=== PATIENT | female | born 1940 | race Caucasian/White ===

== ENCOUNTER 2020-08-28 14:20 | Outpatient (CLI) | payer MEDICARE, SELFPAY ==
--- NOTE | ~2020-08-28 | MM_ITS ---
EXAMINATION: MM screening luci BI w ce HISTORY: Screening mammogram TECHNIQUE: Craniocaudal and mediolateral oblique 3-D tomosynthesis images were obtained and synthetic 2-D images were generated. CAD analysis was submitted and interpreted. COMPARISON: 08/19/2019, 04/12/2018, 08/14/2016 bilateral digital screening mammogram examinations BREAST PARENCHYMAL COMPOSITION: There are scattered areas of fibroglandular density. FINDINGS: There is no evidence of suspicious mass, calcification, or architectural distortion to sugg est malignancy in either breast. There has been no suspicious interval change. IMPRESSION: 1. No mammographic evidence of malignancy. 2. Recommend routine screening mammography in one year. BI-RADS Category 1: Negative Reviewed, dictated and finalized at location B.
== END 2020-08-28 14:21 | disposition home or self-care (01) ==
LOC: ANHIMG 14:24
PROVIDERS: PCP Family Medicine; Visit Provider Family Medicine
DX: Z12.31 Encounter for screening mammogram for malignant neoplasm of breast (principal)
CPT/HCPCS: 77063; 77067

== ENCOUNTER 2023-02-04 06:49 | Day surgery (SDC) | payer MEDICARE, SELFPAY ==
[2023-01-30 12:10] VITALS: BMI 31.0
--- NOTE | 2023-02-04 07:25 | WPDHPUPDATE1 ---
History and Physical Update Update Date/Time: 02/04/23 07:25 History and Physical has been reviewed, including an updated exam of the patient. There are NO changes in the patient's condition. Risks, benefits, and alternatives have been discussed and questions answered. Patient agrees to proceed with procedure.
[2023-02-04 07:35] VITALS: BP 155/54; PULSE 71; RESP 16; TEMP 36; O2SAT 100
[2023-02-04] MEDS: TETRACAINE HCL 0.5% OPHTH SOLN 4 ML BTL 1 DROP AFFCTD EYE ×3 (07:48→07:58)
[2023-02-04] MEDS: OFLOXACIN 0.3% OPHTH SOLN 5 ML BTL 1 DROP AFFCTD EYE (07:48)
--- NOTE | 2023-02-04 08:15 | P.PNAN_ITS ---
Anes - Initial Pre Proc Eval Procedure: Operation Date: 02/04/23 08:10 Proposed Procedures p Cataract Extraction with Lens Implant-Right Eye - Wilver Guadalupe MD Date/Time: 02/04/23 08:15 Surgeon: Wilver Guadalupe MD Pre Op Diagnosis: Cataract Right Eye Patient Data Age: 82 Gender: F Height: 1.57 m Weight: 82.2 kg Last Vital Signs Temp 36.0 C L 02/04/23 07:35 Pulse 71 02/04/23 07:35 Resp 16 02/04/23 07:35 BP 155/54 H 02/04/23 07:35 Pulse Ox 100 02/04/23 07:35 O2 Del Method Room Air 02/04/23 07:35 Allergies Allergy/AdvReac Type Severity Reaction Status Date / Time codeine Allergy Unknown Hallucinati Verified 02/04/23 07:39 ng Home Medications Medication Instructions Recorded Confirmed Type atenolol 50 mg tablet 50 mg PO DAILY 01/30/23 02/04/23 History furosemide 20 mg tablet 20 mg PO DAILY 01/30/23 02/04/23 History omeprazole 20 mg capsule,delayed 20 mg PO DAILY 01/30/23 02/04/23 History release spironolactone 50 mg tablet 50 mg PO DAILY 01/30/23 02/04/23 History Patient hx anesthesia problems: none Family hx anesthesia problems: none Results Review: All pre-operative results and documents have been reviewed as part of the pre- operative evaluation. [facility] Past Medical History Medical History (Updated 02/04/23 @ 08:16 by Devin Andino MD) Obesity Family History Family History (Updated 03/06/17 @ 23:56 by DOCTOR UNKNOWN) Father Acute myocardial infarction, Onset Age: 82 Patient's father is Mother Cerebrovascular accident, Onset Age: 93 Social History Social History Smoking status: Never smoker Second hand tobacco smoke exposure: No Alcohol intake: never Substance use: never Substance use type: does not use Living arrangements: alone Spiritual care concerns: No Anes - Eval Final PreProcedure Day of Procedure 02/04/23 08:15 Patient weight: obese Heart: regular rate and rhythm Lungs: clear to auscultation and normal air movement Airway: Mallampati scale class II Neurological: alert and oriented Last oral intake: >/= 8 hours ASA classification: II Emergent: no Anesthetic plan: proceed Anesthesia type and monitoring: general GIVS Results Review: All pre-operative results and documents have been reviewed as part of the pre- operative evaluation. Informed Consent: The patient's anesthetic plan and its attendant risks and benefits were discussed with the patient/family/POA. Questions were solicited and answers provided to the satisfaction of the patient/family/POA.
[2023-02-04] MEDS: LIDOCAINE HCL 2% JELLY 5 ML TUBE 1 APPLIC AFFCTD EYE (08:21)
[2023-02-04] MEDS: LIDOCAINE HCL 1% PF INJ 5 ML VIAL 1 ML INTRAOCULA (08:32)
[2023-02-04] MEDS: NEOMYCIN/POLYMYXIN/DEXAMETH OP OINT 3.5 GM TUBE 1 APPLIC AFFCTD EYE (08:39)
[2023-02-04] MEDS: HOME MEDICATION 1 EACH AFFCTD EYE (08:43)
[2023-02-04 08:45] VITALS: BP 142/97; PULSE 66; RESP 15; O2SAT 100
[2023-02-04] MEDS: acetaZOLAMIDE TAB 250 MG TABLET PO (08:50)
--- NOTE | 2023-02-04 11:36 | W.PM.PROC2 ---
Procedure Note - Detailed Date of Procedure 02/04/23 Pre-op Diagnosis Cataract Right Eye Post-op Diagnosis Same Procedure Performed Cataract Extraction (by Phacoemulsification) and lntraocular Lens Implant Surgeon Wilver Guadalupe MD Anesthesia MAC Description of Procedure The eye was anesthetized with topical 0.75% bupivacaine. After intravenous sedation and placement of monitors, the patient was prepped and draped in the usual sterile manner. A lid speculum was placed. A paracentesis was made, and preservative free 1% lidocaine was instilled in the anterior chamber. The anterior chamber was then filled with Viscoat viscoelastic. A luke keratome was used to create the wound. Continuous tear anterior capsulotomy was performed. The lens was hydro dissected before being removed with phacoemulsification. The remaining lenticular cortex was removed with aspiration. The capsular bag was polished and filled with viscoelastic material. An intraocular lens was chosen, inspected, irrigated and placed within the capsular bag where it was seen to be centered and stable. The viscoelastic material was aspirated. The wound was closed and found to be watertight. Ciloxan drops were placed in the eye. The speculum was removed. A Juan shield was applied. The patient tolerated the procedure well and left the operating room in satisfactory condition. Implants See chart Complications None Condition Stable Disposition Same day
--- NOTE | 2023-02-04 11:45 | WPDANESPN ---
Anes - Prog Note Post-Op Date/Time: 02/04/23 11:45 Cardiovascular status: normal Respiratory status: normal Airway patency: baseline Mental status: baseline Post-Op hydration status: normal Vital Signs: Last Vital Signs Temp 36.0 C L 02/04/23 07:35 Pulse 66 02/04/23 08:45 Resp 15 02/04/23 08:45 BP 142/97 H 02/04/23 08:45 Pulse Ox 100 02/04/23 08:45 O2 Del Method Room Air 02/04/23 08:45 Pain Score (VAS): 0 Post-procedural complaints: none Patient Feedback: Patient satisfied with anesthetic care.
== END 2023-02-04 09:15 | disposition home or self-care (01) ==
PROVIDERS: PCP Internal Medicine; Visit Provider Student in an Organized Health Care Education/Training Program
PROC: (CPT 66983; principal; 2023-02-04 08:10)
DX: H25.11 Age-related nuclear cataract, right eye (principal)
CPT/HCPCS: 66984

== ENCOUNTER 2024-03-23 08:29 | Outpatient (CLI) | payer MEDICARE, SELFPAY ==
--- NOTE | ~2024-03-23 | CT_ITS ---
CT of the Abdomen and Pelvis: Indication: Abdominal pain Technique: 2.5 mm axial scans were obtained through the abdomen and pelvis following intravenous adm inistration of 100 cc of Omnipaque 350. Dose reduction technique was used on this scan by utilizing a utomated exposure control and iterative reconstruction technique. The dose-length product (DLP) was 6 86.91 mGy-cm. Findings: Scans through the lung bases are unremarkable. Probable small hiatal hernia. Nodular contour of the liver is present, with small hepatic size. Calcified gallstones are present. T he spleen, pancreas, adrenals and kidneys are within normal limits. No evidence of aortic aneurysm. No lymphadenopathy. No bowel obstruction or bowel wall thickening. There is no evidence to suggest acute appendicitis. Images through the pelvis were performed. Urinary bladder unremarkable. No adnexal mass seen. No asci melba. Impression: Cirrhosis of the liver. Cholelithiasis. Reviewed, dictated and finalized at location . Impression: Cirrhosis of the liver. Cholelithiasis.
[2024-03-23 09:06] LABS: Estimated Glomerular Filt Rate 33
== END 2024-03-23 08:30 | disposition home or self-care (01) ==
PROVIDERS: PCP Internal Medicine; Visit Provider Internal Medicine
DX: K80.20 Calculus of gallbladder without cholecystitis without obstruction (principal); K74.60 Unspecified cirrhosis of liver
CPT/HCPCS: 74177; Q9967

== ENCOUNTER 2025-03-14 12:49 | Outpatient (CLI) | payer MEDICARE, SELFPAY ==
--- NOTE | ~2025-03-14 | MR_ITS ---
MRI of the abdomen: Clinical indication: Cirrhosis COMPARISON: CT scan dated 03/23/2024 Technique: Coronal SSFSE ARC, WATER:coronal LAVA-FLEX, Coronal 2D FIESTA FatSat, Axial SSFSE BH ARC, Axial 3D DualEcho BH, Axial SSFSE-IR, Axial DWI b=500, Axial 2D FIESTA FatSat, pre and dynamic postco ntrast Axial LAVA ARC, postcontrast Coronal In and Opposed phase LAVA FLEX . Following intravenous ad ministration of 17 cc MultiHance gadolinium, T1-weighted fat-sat imaging was performed in the axial a nd coronal planes. Findings: Multiple small gallstones are present. The common bile duct is unremarkable. No filling def ects are seen within the CBD. No evidence of intrahepatic biliary ductal dilatation. The pancreatic d uct is normal in size. Liver demonstrate diffusely nodular contour with somewhat small size, compatible cirrhosis. No focal mass evident. Spleen, pancreas, adrenals, kidneys appear normal. The aorta and the paraaortic regions appear normal . No suspicious postcontrast enhancement. Impression: Cirrhosis of the liver. No focal hepatic mass. Cholelithiasis. Reviewed, dictated and finalized at location . Impression: Cirrhosis of the liver. No focal hepatic mass. Cholelithiasis.
--- OUTSIDE RECORDS SUMMARY | 2025-03-14 13:43 | XMS_ITS | Data Portability ---
Author Organization [facility], Main Office Address [address] [place] [address] Care Team Providers Care Motor Equipment Captain Name Role Phone HIGINIO OCAMPO Primary Care Provider HIGINIO OCAMPO Referring Provider Assessment Encounter Date Assessment Date Assessment LastModified by Organization Details LastModified Time 06/17/2023 06/17/2023 Continue current therapy she will follow-up in 6 month Not available 06/18/2023 08:36:40 12/16/2023 12/16/2023 GERD conservative measures as well as famotidine Supplement vitamin-D qmkl-aon-[id number] r Hypertension continue current therapy Blood pressure check in a week she has been taking Benadryl sinus which may be bring her blood pressure up Regular clinic visit 4-6 [email or web address] Not available 12/26/2023 15:51:17 Plan of Treatment Reminders Order Date Submit Date Provider Last Modified By Organization Details Last Modified Time Details Appointments None recorded. Lab CMP, serum or plasma 2023 024 [email or web address] [facility] (Lab), [address] [place], [address], 4 09:10:45 lipid panel, serum [email or web address] (Lab), [address] [place], [address], 4 09:10:45 CMP, serum or plasma 2022 023 MICHAEL [facility] (Lab), [address] [place], [address], 4 09:41:14 lipid panel, serum 2022 023 [facility] [address] [facility] [place], [address], 4 09:41:[address] referral 2023 024 [email or web address] [address] [facility], [address] [place], [address], 4 12:30:09 Procedures None recorded. Surgeries None recorded. Imaging None recorded. Medication Orders None recorded. Patient TargetsNo targets recorded. Patient InstructionsNo instructions recorded. 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 [id number] [facility] [address] [facility], [place], [address], 01/28/2023 00:53:59 Result Notes None recorded. Problems Name Problem SNOMED Code Status Onset Date Resolution Date Notes Provider Name and Address Organization Details Recorded Time Gastroesophag eal reflux disease 930513917 Active Not Available [facility] 3 00:46:04 Vitamin D deficiency 83315948 Active 2020 Not Available [facility] 3 00:46:04 Hypertensive disorder 93380329 Active 2016 Not Available [facility] 3 00:46:04 Neuropathy 523545893 Active Not Available [facility] 3 00:46:04 Skin lesion 26653981 Active 2023 NEHEMIAS Thompson, [place] - [facility] 4 15:24:43 Problem Notes None recorded. Procedures Surgical History Date Name Laterality Status Provider Name and Address Organization Details Recorded Time Knee Surgery completed Not Available [facility] 01/28/2023 00:41:25 Cataract Surgery completed NEHEMIAS Gomez [place] - [facility] 06/17/2023 14:35:09 Imaging Results Imaging Date Name Status LastModified by Organiz ation Details LastModified Time 10/09/2022 XR, knee completed [id number] [facility] [address], [place], [address], 01/28/2023 00:53:59 Procedure Notes None recorded. Medical Equipment None Reported. Allergies Allergen ID Allergen Name Allergen Category Reaction Reaction Severity Criticality Documentation Date Start Date Code Code System Note Provider Name and Address Organization Details Recorded Time 485 codeine medicatio n vomiting Not available Not available 01/28/2023 2670 RxNorm Not Available [facility] 00:53:14 Medications Name Sig Start Date Stop Date Status Note LastModified by Organization Details LastModified Time Miralax 17 gram oral powder packet Take 1 packet every day by oral route. 08/29 completed Not Available Not Available Not Available hydrocodon e 5 mg-acetami nophen 325 mg tablet 06/11 completed Not Available Not Available Not Available chlorthali done 50 mg tablet 09/28 completed Not Available Not Available Not Available triamcinol one acetonide 0.1 % topical cream apply to affected area(s) twice daily as needed1 01/26 completed Not Available Not Available Not Available amoxicilli n 500 mg tablet Take 4 tablet 1 hour before dental procedure active Not Available Not Available No t Available ondansetro n 8 mg disintegra ting tablet 06/11 completed Not Available Not Available Not Available meloxicam 7.5 mg tablet Take 1 tablet every day by oral route. active Not Available Not Available No t Available famotidine 20 mg tablet Take 1 tablet every day by oral route. active Not Available Not Available No t Available Kenalog 10 mg/mL suspension for injection In office injection administe red by the provider 07/16 completed NDC: 0003-0 494-20 Not Available Not Available Not Available cephalexin 500 mg capsule 08/29 completed Not Available Not Available Not Available sertraline 25 mg tablet TAKE ONE TABLET DAILY 12/01 completed Not Available Not Available Not Available omeprazole 20 mg capsule,de layed release TAKE 1 CAPSULE BY MOUTH DAILY active Not Available Not Available No t Available cephalexin 500 mg tablet Take 1 tablet every 6 hours by oral route. 08/29 completed Not Available Not Available Not Available diclofenac sodium 50 mg tablet,del ayed release Take 1 tablet twice a day by oral route for 10 days. 03/22 completed Not Available Not Available Not Available furosemide 20 mg tablet TAKE 1 TABLET BY MOUTH DAILY active Not Available Not Available No t Available Aspir-81 mg tablet,del ayed release Take 1 tablet every day by oral route. 07/19 completed Not Available Not Available Not Available Vitamin D2 1,250 mcg (50,000 unit) capsule Take 1 capsule every week by oral route. active Not Available Not Available No t Available fluticason e propionate 50 mcg/actuat ion nasal spray,susp ension Inhale 2 sprays every day by intranasa l route as needed. 09/28 completed Not Available Not Available Not Available atenolol 50 mg tablet TAKE 1 TABLET BY MOUTH DAILY active Not Available Not Available No t Available spironolac tone 50 mg tablet TAKE 1 TABLET BY MOUTH DAILY active Not Available Not Available No t Available diazepam 5 mg tablet take 1/2(half) tablet PO BID 07/19 completed pt never took Not Available Not Available Not Available amoxicilli n 875 mg-potassi um clavulanat e 125 mg tablet Take 1 tablet twice a day by oral route. 09/28 completed Not Available Not Available Not Available Tylenol Extra Strength 500 mg tablet Take 2 tablets every 6 hours by oral route. 10/09 completed Not Available Not Available Not Available oxycodone 5 mg tablet take 1 tablet PO Q 4hr PRN 11/14 completed Not Available Not Available Not Available Senokot-S 8.6 mg-50 mg tablet Take 2 tablets every day by oral route. 08/29 completed Not Available Not Available Not Available lidocaine (PF) 10 mg/mL (1 %) injection solution In office injection administe red by the provider 07/16 completed [facility]: 0409-4 276-17 Not Available Not Available Not Available GaviLyte-N 420 gram oral solution 07/19 completed Not Available Not Available Not Available Eliquis 2.5 mg tablet Take 1 tablet twice a day by oral route. 11/14 completed Not Available Not Available Not Available Fluzone High-Dose 2014- (PF) 180 mcg/0.5 mL intramuscu lar syringe 01/21 completed Not Available Not Available Not Available Fluzone High-Dose 6746-3586 (PF) 180 mcg/0.5 mL intramuscu lar syringe 09/28 completed Not Available Not Available Not Available Fluzone High-Dose 1354-2627 (PF) 180 mcg/0.5 mL intramuscu lar syringe 01/26 completed Not Available Not Available Not Available Fluad 65yr up(PF)45 mcg(15 mcgx3)/0.5 mL intramuscu lar syringe 01/16 completed Not Available Not Available Not Available Vitals Date Recorded Body height Body mass index (BMI) Body weight Body temperature Heart rate Systolic blood pressure Diastolic blood pressure Provider Name and Address Organization Details Last Updated DateTime 3 152.4 cm 35 kg/m2 42639.0 3 g 97.5 [degF] 66 /min 132 mm[Hg] 84 mm[Hg] NEHEMIAS Gomez [place] - [facility] 3 14:38:14 Date Recorded Body mass index (BMI) Body height Heart rate Body temperature Body weight Systolic blood pressure Diastolic blood pressure Provider Name and Address Organization Details Last Updated DateTime 2 34.6 kg/m2 152.4 cm 60 /min 97.7 [degF] 94852.8 5 g 130 mm[Hg] 80 mm[Hg] Not Available [facility] 3 00:42:15 Date Recorded Body mass index (BMI) Body height Body weight Provider Name and Address Organization Details Last Updated DateTime 10/09/2022 34.8 kg/m2 152.4 cm 77212.44 g Not Available [facility] 01/28/2023 00:42:22 Date Recorded Body mass index (BMI) Body height Heart rate Body temperature Body weight Systolic blood pressure Diastolic blood pressure Provider Name and Address Organization Details Last Updated DateTime 3 34.4 kg/m2 152.4 cm 67 /min 97 [degF] 69071.2 6 g 122 mm[Hg] 70 mm[Hg] Not Available [facility] 3 00:42:15 Date Recorded Body height Body temperature Heart rate Respiratory rate Oxygen saturation Oxygen saturation in Arterial blood by Pulse oximetry Pain severity - 0-10 verbal numeric rating [Score] - Reported Systolic blood pressure Diastolic blood pressure Provider Name and Address Organization Details Last Updated DateTime 4 152.4 cm 97.2 [degF] 68 /min 20 /min 99 % 99 % 0 170 mm[Hg] 70 mm[Hg] Cecilia Vences RN [place] - [facility] [employer] 4 14:35:19 Social History Question Answer Notes LastModified by Organizat ion Details LastModified Time Tobacco Smoking Status Never Smoker Not Available [facility] 01/28/2023 00:40:24 Do You Have An Advance Directive? Yes MIGRATION.12726 96470 Information not available 01/28/2023 What Is Your Level Of Alcohol Consumption? None MIGRATION.69225 29481 Information not available 01/28/2023 Do You Wear A Helmet When Biking? Yes MIGRATION.85939 99942 Information not available 01/28/2023 Are You Blind Or Do You Have Difficulty Seeing? No MIGRATION.80832 35426 Information not available 01/28/2023 What Is Your Level Of Caffeine Consumption? Occasional MIGRATION.90411 28949 Information not available 01/28/2023 What Is Your Code Status? DNR MIGRATION.45856 30219 Information not available 01/28/2023 In The 14 Days Before Symptom Onset, Have You Had Close Contact With A Laboratory-confir med COVID-19 While That Case Was Ill? No MIGRATION.99006 64892 Information not available 01/28/2023 In The 14 Days Before Symptom Onset, Have You Had Close Contact With A Person Who Is Under Investigation For COVID-19 While That Person Was Ill? No MIGRATION.21223 37049 Information not available 01/28/2023 Are You Deaf Or Do You Have Serious Difficulty Hearing? No MIGRATION.75796 21474 Information not available 01/28/2023 What Type Of Diet Are You Following? REGULAR MIGRATION.76018 32022 Information not available 01/28/2023 What Is The Highest Grade Or Level Of School You Have Completed Or The Highest Degree You Have Received? [id number] MIGRATION.78824 72602 Information not available 01/28/2023 Have There Been Any Changes To Your Family Or Social Situation? No MIGRATION.99489 21094 Information not available 01/28/2023 What Is The Fluoride Status Of Your Home? Unknown MIGRATION.90819 20416 Information not available 01/28/2023 Do You Use Insect Repellent Routinely? Yes MIGRATION.82546 45617 Information not available 01/28/2023 Where Do You Live? [place] MIGRATION.33249 66966 Information not available 01/28/2023 Do You Have A Medical Power Of Gearman? Yes MIGRATION.37257 23789 Information not available 01/28/2023 What Was The Date Of Your Most Recent Tobacco Screening? 06/17/2023 [email or web address] Information not available 06/17/2023 Do You Have Any Pets? No MIGRATION.65755 32025 Information not available 01/28/2023 What Is Your Relationship Status? MIGRATION.45815 40150 Information not available 01/28/2023 Do You Use Your Seat Belt Or Car Seat Routinely? Yes MIGRATION.87559 48092 Information not available 01/28/2023 Do You Have Smoke And Carbon Monoxide Detectors In Your Home? Yes MIGRATION.74911 13014 Information not available 01/28/2023 Are You Passively Exposed To Smoke? No MIGRATION.58588 87674 Information not available 01/28/2023 Are There Any Smokers In Your House? No MIGRATION.95693 05750 Information not available 01/28/2023 Do You Participate In Social Media? No MIGRATION.26003 60762 Information not available 01/28/2023 Do You Feel Stressed (tense, Restless, Nervous, Or Anxious, Or Unable To Sleep At Night)? [id number] MIGRATION.27448 39097 Information not available 01/28/2023 Do You Use Any Illicit Or Recreational Drugs? No MIGRATION.08657 01514 Information not available 01/28/2023 Do You Use Sunscreen Routinely? No MIGRATION.44142 23733 Information not available 01/28/2023 Has Tobacco Cessation Counseling Been Provided? No MIGRATION.87006 57159 Information not available 01/28/2023 Have You Recently Traveled Abroad? No MIGRATION.45744 12760 Information not available 01/28/2023 Are You Currently In School? No MIGRATION.94458 74435 Information not available 01/28/2023 Do You Have Any Dietary Restrictions? No MIGRATION.67128 66558 Information not available 01/28/2023 Sex: Unknown Functional Status Question Answer Note LastModified by Organizat ion Details LastModified Time Do you have difficulty walking or climbing stairs? No MIGRATION.[id number] 26 Information not available 01/28/2023 Are you able to walk? YESWOREST MIGRATION.97557564 26 Information not available 01/28/2023 Do you have difficulty doing errands alone? No MIGRATION.55489479 26 Information not available 01/28/2023 Are you able to care for yourself? Yes MIGRATION.92650078 26 Information not available 01/28/2023 Do you have difficulty dressing or bathing? No MIGRATION.48766191 26 Information not available 01/28/2023 What is your exercise level? Occasional MIGRATION.89948500 26 Information not available 01/28/2023 Mental Status Question Answer Note LastModified by Organizat ion Details LastModified Time Do you have difficulty concentrating, remembering or making decisions? No MIGRATION.770145792 6 Information not available 01/28/2023 Family History Relationship Description Onset Age of this Age Resolved Age Notes LastModified by Organization Details LastModified Time Mother Hypertensive disorder MIGRATION.814 [id number] Not available 01/28/2023 00:41:27 Brother Hypertensive disorder MIGRATION.236 [id number] Not available 01/28/2023 00:41:27 Unspecified Relation Blood coagulation disorder MIGRATION.295 [id number] Not available 01/28/2023 00:41:27 Medical History Condition Response BLINDNESS N KIDNEY STONES N MRSA N CARPAL TUNNEL SYNDROME N LUNG DISEASE/DISORDER N HISTORY OF DRUG ABUSE N RADIATION / CHEMOTHERAPY N COPD N SPORTS INJURY N ANKLE PAIN N BLOOD DISEASES N SCHIZOPHRENIA N SHINGLES N SHOULDER PAIN N BOWEL PROBLEMS N DEPRESSION (INCLUDING POST ) N STROKE/TIA N ULCERS N KNEE PAIN N BENIGN PROSTATIC HYPERPLASIA N OBESITY N GERD/NAUSEA N ANEURYSM N URINARY/BLADDER/KIDNEY PROBLEMS N CORONARY ARTERY DISEASE (CAD) N ADDICTION CONCERNS N USE OF BLOOD THINNERS N SKIN PROBLEMS N EMPHYSEMA N MUSCLE,JOINT OR BONE PROBLEMS N DVT N STOMACH ULCERS N BLOOD CLOTS N USE OF NSAIDS N CONCUSSION OR SPINAL TRAUMA N NEUROPATHY N AIDS/HIV N FRACTURES N HYPERTENSION Y ELBOW PAIN N TOURETTE'S N Metal allergy N ANXIETY DISORDER N BLOOD TRANSFUSION N ANEMIA/BLOOD DISORDER N BIPOLAR DISORDER N BRONCHITIS N OSTEOARTHRITIS N TUBERCULOSIS N FOOT PROBLEM N HEART VALVE DISORDERS N ALLERGIES/HAYFEVER N SOFT TISSUE INJURY N INFECTIOUS DISEASE N HEART ARRHYTHMIA N INSOMNIA N HIGH CHOLESTEROL / HYPERLIPIDEMIA N RHEUMATOID ARTHRITIS N EDEMA N CHRONIC PAIN SYNDROME N CAROTID BLOCKAGE N BACK / NECK PROBLEMS N HAVE YOU BEEN HOSPITALIZED OR SEEN IN [facility] IN THE PAST YEAR ? N BURSITIS N HERNIATED DISC N DIALYSIS N FIBROMYALGIA N OSTEOPOROSIS N ARTHRITIS Y NO SIGNIFICANT PAST MEDICAL HISTORY N PERIPHERAL NEUROPATHY N DIABETES, TYPE N HEARTBURN / REFLUX N HEPATITIS / LIVER DISEASE N GOUT N ALZHEIMER'S DISEASE N SLEEP DISORDER N HERPES N HEADACHES/MIGRAINES N SEIZURES/EPILEPSY N VASCULAR DISEASE N Blood Disorder N HIP PAIN N DIZZINESS N HEAD TRAUMA OR INJURY N HEART DISEASE/HEART PROBLEMS N MULTIPLE SCLEROSIS N CANCER: SPECIFY N CARDIAC ARRHYTHMIA N ANESTHESIA COMPLICATIONS N ATRIAL FIBRILLATION N AUTOIMMUNE DISEASE N Gynecological HistoryNo gynecological history recorded. Obstetrics History GPAL:G 2 P 0 0 0 2 Type Value Living 2 Total 2 Immunizations Vaccine Type Date Status Note Provider [facility] e and Address Organization Details Recorded Time COVID-19, mRNA, LNP-S, bivalent, PF, 50 mcg/0.5 mL or 25mcg/0.25 mL dose 2 completed MELANIE Eddy, [place] [facility] 12/16/2023 14:28:30 COVID-19, mRNA, LNP-S, bivalent, PF, 50 mcg/0.5 mL or 25mcg/0.25 mL dose 2 completed MELANIE Edd[place], [place] [facility] 12/16/2023 14:28:30 influenza, unspecified formulation 8 completed Not Available [facility] 01/28/2023 00:53:04 Influenza, high-dose, trivalent, PF 7 completed MELANIE Edd[place], [place] [facility] 12/16/2023 14:28:30 COVID-19, mRNA, LNP-S, PF, 100 mcg/0.5mL dose or 50 mcg/0.25mL dose 1 completed MELANIE Eddy, [place] [facility] 12/16/2023 14:28:30 COVID-19, mRNA, LNP-S, PF, 100 mcg/0.5mL dose or 50 mcg/0.25mL dose 1 completed Cecilia Vences RN [facility], [place] - [facility] 12/16/2023 14:28:30 Influenza, high-dose, quadrivalent, PF 1 completed Not Available [facility] 01/28/2023 00:53:04 Influenza, split virus, quadrivalent, PF 6 completed Not Available [facility] 01/28/2023 00:53:05 Past Encounters Encounter ID Performer Location Encounter Start Date Encounter Closed Date Diagnosis/Indication Diagnosis SNOMED-CT Code Diagnosis ICD10 Code Diagnosis Note [id number] [facility] [address] [address] 02/21/2021 00:00:00 02/21/2021 09:43:49 [id number] [facility] [address] [address] 05/16/2021 00:00:00 05/24/2021 13:13:51 [id number] [facility] [address] [address] 06/27/2021 00:00:00 06/27/2021 10:00:07 [id number] [facility] [address] [address] 07/16/2021 00:00:00 07/17/2021 08:53:25 [id number] [facility] [address] [address] 08/08/2021 00:00:00 08/08/2021 12:16:00 [id number] [facility] [address] [address] 08/29/2021 00:00:00 08/29/2021 12:23:00 [id number] [facility] [address] [address] 09/04/2021 00:00:00 09/04/2021 18:29:49 [id number] [facility] [address] [address] 09/12/2021 00:00:00 09/12/2021 11:44:41 [id number] [facility] [address] [address] 10/31/2021 00:00:00 10/31/2021 12:39:58 [id number] [facility] [address] [address] 11/14/2021 00:00:00 11/14/2021 10:56:25 [id number] [facility] [address] [address] 11/28/2021 00:00:00 11/30/2021 21:36:17 [id number] [facility] Internal [facility] [address] [place] [address] [address] 12/13/2021 00:00:00 12/22/2021 20:59:41 [id number] [facility] [address] [place] [address] [address] 06/11/2022 00:00:00 06/30/2022 20:53:21 [id number] [facility] [address] [address] 10/09/2022 00:00:00 10/09/2022 12:01:36 [id number] [facility] [address] [address] 12/10/2022 00:00:00 12/13/2022 21:13:20 [id number] Higinio Ocampo MD [facility] [address] [address] 06/17/2023 14:23:06 06/17/2023 14:51:32 Hypertensive disorder 10230858 I10 Gastroesop hageal reflux disease 453366496 K21.9 Vitamin D deficiency 347 58178 E55.9 [id number] Higinio Ocampo MD [facility] [address] [place] [address] 12/16/2023 14:15:17 12/16/2023 15:26:26 Hypertensive disorder 85009779 I10 Skin lesion 09963815 L98 .9 Gastroesop hageal reflux disease 189666174 K21.9 Health Concerns Section Related Observation LastModified by Organization Detai ls LastModified Time None Recorded Concern Status LastModified by Organization Details LastModified Time None Recorded Advance Directives Directive Y: Payers Encounter Date Sequence Insurance Name Policy Number Policy Christensen Covered Member ID Christensen Member ID Guarantor Name 06/17/2023 1 [facility] (MEDICARE REPLACEMENT/A DVANTAGE - HMO) [id number] Janine Kahn [id number] Janine Kahn 12/16/2023 1 [facility] (MEDICARE REPLACEMENT/A DVANTAGE - HMO) [id number] Janine Kahn [id number] Janine Kahn Notes Date Note Type Note Provider Name and Address Organization Details Recorded Time 06/17/2023 text/html GERD no nausea vomiting are prepared hypertension headache or dizziness. Osteoarthritis seems to be doing okay. History of low vitamin-D asymptomatic Higinio Ocampo MD [address], [facility] [address], [place], [address], [employer] 06/18/2023 08:37:00 12/16/2023 text/html Hypertension no headache no dizzinessDoes have a hyperpigmented skin lesionGERD no nausea no vomiting Higinio Ocampo MD [address], [facility] [address], [place], [address], [employer] 12/26/2023 15:51:33 OBGyn Episode No OBEpisode recorded.
--- OUTSIDE RECORDS SUMMARY | 2025-03-14 13:43 | XMS_ITS | Data Portability ---
Author Organization [facility] Address [address] [place] [address] Care Team Providers Care Cementer Hand Name Role Phone TREE OCAMPO Primary Care Provider Assessment Encounter Date Assessment Date Assessment LastModified by Organization Details LastModified Time 06/08/2024 06/08/2024 we will continue current therapy for GERD Pepcid 20 mg b.i.d. for couple of weeks then she will go to once a day. She has a nodular liver on CT scan also some gallstones I have recommended she see a liver specialist she has refused. She does not have anything to suggest biliary colic at this time but that was reviewed see month. We will get CBC CMP also magnesium level also will request records from her previous clinic. She will double the Lasix for 3 days and then go back to her regular dose again she was told to weigh herself daily and avoid salt [email or web address] Not available 07/03/2024 15:10:20 07/13/2024 07/13/2024 she will conside r seeing the liver specialists. I have encouraged her to do so follow up with me in 3-4 months if she is not called for referral to hepatology by then we may need to get MRI of liver [email or web address] Not available 07/13/2024 22:23:47 10/14/2024 10/14/2024 blood pressure controlled continue current therapy abnormal liver imaging suspect she may have some cirrhosis but she does not want any further testing nor referral to liver specialist. GERD she can use the omeprazole for breakthrough still use famotidine as well she will follow up in 4 months blood work ordered [email or web address] Not available 10/14/2024 23:14:31 11/04/2024 11/04/2024 Keflex continue MALIKA Also healthy lifestyle care instructions and keep regular appointment [email or web address] Not available 11/05/2024 14:31:33 02/17/2025 02/17/2025 on physical exam really paucity if any stigmata of chronic liver disease we will MRI her liver with and without contrast to further delineate anatomy as CT scan showed nodular liver healthy lifestyle care instructions continue with her atenolol famotidine and spironolactone she will follow up with me in 4 months again I have offered her to see hepatology she says she will wait and see what the MRI shows obtain CBC CMP and lipid [email or web address] Not available 02/18/2025 15:11:22 Plan of Treatment Reminders Order Date Submit Date Provider Last Modified By Organization Details Last Modified Time Details Appointments ANY 15 2024 01:00P Thu Ocampo MD Not available Not available Not available Lab CBC w/ auto diff 2023 [facility], [address], [address], [place], [address], 10/17/2024 15:26:40 CMP, serum or plasma 2023 024 [facility], [address], [address], [place], [address], 10/17/2024 15:26:38 lipid panel, serum 2023 024 [facility], [address], [place], [address], 10/17/2024 15:26:36 magnesium , serum or plasma 2023 024 [facility], [address], [address], [place], [address], 10/17/2024 15:26:37 CMP, serum or plasma 2023 024 [facility], [address], [address], [place], [address], 06/18/2024 03:08:19 manganese , serum or plasma 2023 024 [facility], [address], [place], [address], 06/18/2024 03:08:20 CBC w/ auto diff 2023 024 [facility], [address], [place], [address], 06/18/2024 03:08:20 Referral None recorded. Procedures None recorded. Surgeries None recorded. Imaging MRI, liver, w/wo contrast 2024 025 [email or web address] [facility] ([facility]), [address], [place], [address], 02/17/2025 13:26:11 Medication Orders cephalexi n 500 mg capsule 2023 025 [id number], [address], [place], [place], [id number], 02/17/2025 12:16:26 famotidin e 20 mg tablet 2023 024 [email or web address] [facility], [address] [place] [address], [address], [place], [place], [id number], 10/14/2024 13:08:36 famotidin e 20 mg tablet 2023 024 [email or web address] [facility], [address] [place] [address], [address], [place], [place], [id number], 06/16/2024 09:43:09 Patient TargetsNo targets recorded. Patient Instructions Encounter Date Encounter Id Patient Instructions Last Modified By Organization Details Last Modified Time 06/08/2024 [id number] A healthy lifestyle: care instructions Not available 06/08/2024 17:47:19 11/04/2024 [id number] A healthy lifestyle: care instructions [email or web address] Not available 11/04/2024 13:32:29 02/17/2025 [id number] A healthy lifestyle: care instructions [email or web address] Not available 02/17/2025 13:26:11 Reason for Referral None Reported. Results Created Date Observation Date Name Description Value Unit Range Abnormal Flag Note LastModifiedBy Organization Detail LastModifiedTime 06/11/20 24 06/18/2024 COMPR EHENS JESSICA METAB OLIC PANEL glucose 117 mg/dL 65-99 high Fasti ng refer ence inter cassie For someo ne witho ut known diabe melba, a gluco se value betwe en 100 and 125 mg/dL is consi stent with predi abete s and shoul d be confi rmed with a follo w-up test. Not Available [address], [address], 06/18/2024 03:08:19 06/11/20 24 06/18/2024 COMPR EHENS JESSICA METAB OLIC PANEL urea nitrogen (BUN) 12 mg/dL 7-25 normal Not Available [address], [address], 06/18/2024 03:08:19 06/11/20 24 06/18/2024 COMPR EHENS JESSICA METAB OLIC PANEL creatinine 1.44 mg/dL 0.60-0 .95 high Not Available [address], [address], 06/18/2024 03:08:19 06/11/20 24 06/18/2024 COMPR EHENS JESSICA METAB OLIC PANEL eGFR 37 mL/mi n/1.7 3m2 > or = 60 low Not Available [address], [address], 06/18/2024 03:08:19 06/11/20 24 06/18/2024 COMPR EHENS JESSICA METAB OLIC PANEL BUN/creatini ne ratio 8 (calc ) 6-22 normal Not Available [facility] [place] [address], [address], 06/18/2024 03:08:19 07/13/20 24 06/18/2024 COMPR EHENS JESSICA METAB OLIC PANEL sodium 137 mmol/ L 135-14 6 normal Not Available [address], [address], 06/18/2024 03:08:19 06/11/20 24 06/18/2024 COMPR EHENS JESSICA METAB OLIC PANEL potassium 4.3 mmol/ L 3.5-5. 3 normal Not Available [address], [address], 06/18/2024 03:08:19 06/11/20 24 06/18/2024 COMPR EHENS JESSICA METAB OLIC PANEL chloride 101 mmol/ L 98-110 normal Not Available [address], [address], 06/18/2024 03:08:19 06/11/20 24 06/18/2024 COMPR EHENS JESSICA METAB OLIC PANEL carbon dioxide 29 mmol/ L 20-32 normal Not Available [address], [address], 06/18/2024 03:08:19 06/11/20 24 06/18/2024 COMPR EHENS JESSICA METAB OLIC PANEL calcium 9.4 mg/dL 8.6-10 .4 normal Not Available [address], [address], 06/18/2024 03:08:19 06/11/20 24 06/18/2024 COMPR EHENS JESSICA METAB OLIC PANEL protein, total 6.4 g/dL 6.1-8. 1 normal Not Available [address], [address], 06/18/2024 03:08:19 06/11/20 24 06/18/2024 COMPR EHENS JESSICA METAB OLIC PANEL albumin 3.1 g/dL 3.6-5. 1 low Not Available [address] [place], [address], 06/18/2024 03:08:19 06/11/20 24 06/18/2024 COMPR EHENS JESSICA METAB OLIC PANEL globulin 3.3 g/dL_ (calc ) 1.9-3. 7 normal Not Available [address], [address], 06/18/2024 03:08:19 06/11/20 24 06/18/2024 COMPR EHENS JESSICA METAB OLIC PANEL albumin/glob ulin ratio 0.9 (calc ) 1.0-2. 5 low Not Available [address], [address], 06/18/2024 03:08:19 06/11/20 24 06/18/2024 COMPR EHENS JESSICA METAB OLIC PANEL bilirubin, total 1.4 mg/dL 0.2-1. 2 high Not Available [address], [address], 06/18/2024 03:08:19 06/11/20 24 06/18/2024 COMPR EHENS JESSICA METAB OLIC PANEL alkaline phosphatase 66 U/L 37-153 normal Not Available [address] [address] [place], [address], 06/18/2024 03:08:19 06/11/20 24 06/18/2024 COMPR EHENS JESSICA METAB OLIC PANEL AST 27 U/L 10-35 normal Not Available [address], [address], 06/18/2024 03:08:19 06/11/20 24 06/18/2024 COMPR EHENS JESSICA METAB OLIC PANEL ALT 9 U/L 6-29 normal Not Available [address], [address], 06/18/2024 03:08:19 06/11/20 24 06/18/2024 CBC (INCL UDES DIFF/ PLT) white blood cell count 4.5 thous and/u L 3.8-10 .8 normal Not Available [address], [address], 06/18/2024 03:08:20 06/11/20 24 06/18/2024 CBC (INCL UDES DIFF/ PLT) red blood cell count 3.32 kenneth on/uL 3.80-5 .10 low Not Available [address], [address], 06/18/2024 03:08:20 06/11/20 24 06/18/2024 CBC (INCL UDES DIFF/ PLT) hemoglobin 10.8 g/dL 11.7-1 5.5 low Not Available [address], [address], 06/18/2024 03:08:20 06/11/20 24 06/18/2024 CBC (INCL UDES DIFF/ PLT) hematocrit 32.1 % 35.0-4 5.0 low Not Available [address], [address], 06/18/2024 03:08:20 06/11/20 24 06/18/2024 CBC (INCL UDES DIFF/ PLT) MCV 96.7 fL 80.0-1 00.0 normal Not Available [address], [address], 06/18/2024 03:08:20 06/11/20 24 06/18/2024 CBC (INCL UDES DIFF/ PLT) MCH 32.5 pg 27.0-3 3.0 normal Not Available [address], [address], 06/18/2024 03:08:20 06/11/20 24 06/18/2024 CBC (INCL UDES DIFF/ PLT) MCHC 33.6 g/dL 32.0-3 6.0 normal Not Available [address], [address], 06/18/2024 03:08:20 06/11/20 24 06/18/2024 CBC (INCL UDES DIFF/ PLT) RDW 12.8 % 11.0-1 5.0 normal Not Available [address], [address], 06/18/2024 03:08:20 06/11/20 24 06/18/2024 CBC (INCL UDES DIFF/ PLT) platelet count 117 thous and/u L 140-40 0 low Not Available [address], [address], 06/18/2024 03:08:20 06/11/20 24 06/18/2024 CBC (INCL UDES DIFF/ PLT) MPV 9.7 fL 7.5-12 .5 normal Not Available [address], [address], 06/18/2024 03:08:20 06/11/20 24 06/18/2024 CBC (INCL UDES DIFF/ PLT) absolute neutrophils 2367 cells /uL 1500-7 800 normal Not Available [address], [address], 06/18/2024 03:08:20 06/11/20 24 06/18/2024 CBC (INCL UDES DIFF/ PLT) absolute lymphocytes 1098 cells /uL 850-39 00 normal Not Available [address], [address], 06/18/2024 03:08:20 06/11/20 24 06/18/2024 CBC (INCL UDES DIFF/ PLT) absolute monocytes 563 cells /uL 200-95 0 normal Not Available [address], [address], 06/18/2024 03:08:20 06/11/20 24 06/18/2024 CBC (INCL UDES DIFF/ PLT) absolute eosinophils 401 cells /uL 15-500 normal Not Available [facility] [address], [address], 06/18/2024 03:08:20 06/11/20 24 06/18/2024 CBC (INCL UDES DIFF/ PLT) absolute basophils 72 cells /uL 0-200 normal Not Available [facility] [address], [address], 06/18/2024 03:08:20 06/11/20 24 06/18/2024 CBC (INCL UDES DIFF/ PLT) neutrophils 52.6 % normal Not Available [facility] [address], [address], 06/18/2024 03:08:20 06/11/20 24 06/18/2024 CBC (INCL UDES DIFF/ PLT) lymphocytes 24.4 % normal Not Available [facility] [address], [address], 06/18/2024 03:08:20 06/11/20 24 06/18/2024 CBC (INCL UDES DIFF/ PLT) monocytes 12.5 % normal Not Available [facility] [address], [address], 06/18/2024 03:08:20 06/11/20 24 06/18/2024 CBC (INCL UDES DIFF/ PLT) eosinophils 8.9 % normal Not Available [facility] [address], [address], 06/18/2024 03:08:20 06/11/20 24 06/18/2024 CBC (INCL UDES DIFF/ PLT) basophils 1.6 % normal Not Available [facility] [address], [address], 06/18/2024 03:08:20 06/11/20 24 06/18/2024 MANGA NESE, SERUM manganese, serum 1.4 mcg/L <1.2 high (Note ) This test was devel flash and its beth tical perfo rmanc e rick cteri stics have been deter mined by [employer]. It has not been clear ed or appro anthony by the FDA. This assay has been valid ated pursu ant to the CLIA regul ation s and is used for clini samantha purpo ses. MDF med fusio n [address] [facility] [address] [place] [address] [phone] Virginia Sullivan MD, PhD Not Available [employer] [facility] [address] [address] [place], [address], 06/18/2024 03:08:20 10/14/20 24 10/17/2024 LIPID PANEL , STAND JERONIMO cholesterol, total 145 mg/dL <200 normal Not Available [employer] [facility] [address] [address] [place], [address], 10/17/2024 15:26:35 10/14/20 24 10/17/2024 LIPID PANEL , STAND JERONIMO HDL cholesterol 54 mg/dL > or = 50 normal Not Available [employer] [place] [address] [address] [place], [address], 10/17/2024 15:26:35 10/14/20 24 10/17/2024 LIPID PANEL , STAND JERONIMO triglyceride s 62 mg/dL <150 normal Not Available [employer] [facility] [address] [address] [place], [address], 10/17/2024 15:26:35 10/14/2010/17/2024 LIPID PANEL , STAND JERONIMO LDL-choleste rol 77 mg/dL _(samantha c) normal Refer ence range : <100 Trae able range <100 mg/dL for prima ry preve ntion ; <70 mg/dL for patie nts with CHD or diabe tic patie nts with > or = 2 CHD risk facto rs. LDL-C is now calcu lated using the Katharine n-Hop kins calcu familia n, which is a valid ated novel eseo d beryli krystian holt than the Fried alice equat ion in the estim ation of LDL-C . Katharine mansfield SS et al. WAYNE. 2013; 310(1 9): 2061- 2068 (http ://ed ucati on.Qu estUrova Medical. com/f aq/FA Q164) Not Available [address] [address] [place], [address], 10/17/2024 15:26:35 10/14/20 24 10/17/2024 LIPID PANEL , STAND JERONIMO chol/HDLC ratio 2.7 (calc ) <5.0 normal Not Available [address] [address] [place], [address], 10/17/2024 15:26:35 10/14/20 24 10/17/2024 LIPID PANEL , STAND JERONIMO non HDL cholesterol 91 mg/dL _(samantha c) <130 normal For patie nts with diabe melba plus 1 major ASCVD risk facto r, treat ing to a non-H DL-C goal of <100 mg/dL (LDL- C of <70 mg/dL ) is consi víctor villegas optio n. Not Available [address] [address] [place], [address], 10/17/2024 15:26:35 10/14/20 24 10/17/2024 MAGNE SIUM magnesium 1.6 mg/dL 1.5-2. 5 normal Not Available [facility] [place] [address] [address] [place], [address], 10/17/2024 15:26:37 10/14/20 24 10/17/2024 COMPR EHENS JESSICA METAB OLIC PANEL glucose 112 mg/dL 65-139 normal Non-f astin g refer ence inter cassie Not Available [facility] [place] [address] [address] [place], [address], 10/17/2024 15:26:38 10/14/20 24 10/17/2024 COMPR EHENS JESSICA METAB OLIC PANEL urea nitrogen (BUN) 16 mg/dL 7-25 normal Not Available [address], [address], 10/17/2024 15:26:38 10/14/20 24 10/17/2024 COMPR EHENS JESSICA METAB OLIC PANEL creatinine 1.60 mg/dL 0.60-0 .95 high Not Available [address], [address], 10/17/2024 15:26:38 10/14/20 24 10/17/2024 COMPR EHENS JESSICA METAB OLIC PANEL eGFR 32 mL/mi n/1.7 3m2 > or = 60 low Not Available [address], [address], 10/17/2024 15:26:38 10/14/20 24 10/17/2024 COMPR EHENS JESSICA METAB OLIC PANEL BUN/creatini ne ratio 10 (calc ) 6-22 normal Not Available [address], [address], 10/17/2024 15:26:38 10/14/20 24 10/17/2024 COMPR EHENS JESSICA METAB OLIC PANEL sodium 137 mmol/ L 135-14 6 normal Not Available [address], [address], 10/17/2024 15:26:38 10/14/20 24 10/17/2024 COMPR EHENS JESSICA METAB OLIC PANEL potassium 4.0 mmol/ L 3.5-5. 3 normal Not Available [address], [address], 10/17/2024 15:26:38 10/14/20 24 10/17/2024 COMPR EHENS JESSICA METAB OLIC PANEL chloride 102 mmol/ L 98-110 normal Not Available [address], [address], 10/17/2024 15:26:38 10/14/20 24 10/17/2024 COMPR EHENS JESSICA METAB OLIC PANEL carbon dioxide 30 mmol/ L 20-32 normal Not Available [address], [address], 10/17/2024 15:26:38 10/14/20 24 10/17/2024 COMPR EHENS JESSICA METAB OLIC PANEL calcium 9.4 mg/dL 8.6-10 .4 normal Not Available [address], [address], 10/17/2024 15:26:38 10/14/20 24 10/17/2024 COMPR EHENS JESSICA METAB OLIC PANEL protein, total 6.9 g/dL 6.1-8. 1 normal Not Available [address], [address], 10/17/2024 15:26:38 10/14/20 24 10/17/2024 COMPR EHENS JESSICA METAB OLIC PANEL albumin 3.2 g/dL 3.6-5. 1 low Not Available [address], [address], 10/17/2024 15:26:38 10/14/20 24 10/17/2024 COMPR EHENS JESSICA METAB OLIC PANEL globulin 3.7 g/dL_ (calc ) 1.9-3. 7 normal Not Available [address], [address], 10/17/2024 15:26:38 10/14/20 24 10/17/2024 COMPR EHENS JESSICA METAB OLIC PANEL albumin/glob ulin ratio 0.9 (calc ) 1.0-2. 5 low Not Available [address], [address], 10/17/2024 15:26:38 10/14/20 24 10/17/2024 COMPR EHENS JESSICA METAB OLIC PANEL bilirubin, total 2.3 mg/dL 0.2-1. 2 high Not Available [address], [address], 10/17/2024 15:26:38 10/14/20 24 10/17/2024 COMPR EHENS JESSICA METAB OLIC PANEL alkaline phosphatase 68 U/L 37-153 normal Not Available [address], [address], 10/17/2024 15:26:38 10/14/20 24 10/17/2024 COMPR EHENS JESSICA METAB OLIC PANEL AST 27 U/L 10-35 normal Not Available [address], [address], 10/17/2024 15:26:38 10/14/20 24 10/17/2024 COMPR EHENS JESSICA METAB OLIC PANEL ALT 11 U/L 6-29 normal Not Available [address], [address], 10/17/2024 15:26:38 10/14/20 24 10/17/2024 CBC (INCL UDES DIFF/ PLT) white blood cell count 7.3 thous and/u L 3.8-10 .8 normal Not Available [address], [address], 10/17/2024 15:26:40 10/14/20 24 10/17/2024 CBC (INCL UDES DIFF/ PLT) red blood cell count 3.41 kenneth on/uL 3.80-5 .10 low Not Available [address], [address], 10/17/2024 15:26:40 10/14/20 24 10/17/2024 CBC (INCL UDES DIFF/ PLT) hemoglobin 11.6 g/dL 11.7-1 5.5 low Not Available [address], [address], 10/17/2024 15:26:40 10/14/20 24 10/17/2024 CBC (INCL UDES DIFF/ PLT) hematocrit 34.9 % 35.0-4 5.0 low Not Available [facility] [address], [address], 10/17/2024 15:26:40 10/14/2010/17/2024 CBC (INCL UDES DIFF/ PLT) MCV 102.3 fL 80.0-1 00.0 high Not Available [address], [address], 10/17/2024 15:26:40 10/14/2010/17/2024 CBC (INCL UDES DIFF/ PLT) MCH 34.0 pg 27.0-3 3.0 high Not Available [facility] [address], [address], 10/17/2024 15:26:40 10/14/20 24 10/17/2024 CBC (INCL UDES DIFF/ PLT) MCHC 33.2 g/dL 32.0-3 6.0 normal For adult s, a sligh t decre ase in the calcu lated MCHC value (in the range of 30 to 32 g/dL) is most likel y not clini marianela signi cassie t; kameron er, it shoul d be inter prete d with cauti on in corre latio n with other red cell patricia eters and the patie nt's clini samantha condi tion. Not Available [facility] [address], [address], 10/17/2024 15:26:40 10/14/20 24 10/17/2024 CBC (INCL UDES DIFF/ PLT) RDW 12.3 % 11.0-1 5.0 normal Not Available [address] [place], [address], 10/17/2024 15:26:40 10/14/20 24 10/17/2024 CBC (INCL UDES DIFF/ PLT) platelet count 106 thous and/u L 140-40 0 low Not Available [address], [address], 10/17/2024 15:26:40 10/14/20 24 10/17/2024 CBC (INCL UDES DIFF/ PLT) MPV 10.5 fL 7.5-12 .5 normal Not Available [address], [address], 10/17/2024 15:26:40 10/14/20 24 10/17/2024 CBC (INCL UDES DIFF/ PLT) absolute neutrophils 3475 cells /uL 1500-7 800 normal Not Available [address], [address], 10/17/2024 15:26:40 10/14/20 24 10/17/2024 CBC (INCL UDES DIFF/ PLT) absolute lymphocytes 2227 cells /uL 850-39 00 normal Not Available [address], [address], 10/17/2024 15:26:40 10/14/20 24 10/17/2024 CBC (INCL UDES DIFF/ PLT) absolute monocytes 1044 cells /uL 200-95 0 high Not Available [address], [address], 10/17/2024 15:26:40 10/14/20 24 10/17/2024 CBC (INCL UDES DIFF/ PLT) absolute eosinophils 475 cells /uL 15-500 normal Not Available [address], [address], 10/17/2024 15:26:40 10/14/20 24 10/17/2024 CBC (INCL UDES DIFF/ PLT) absolute basophils 80 cells /uL 0-200 normal Not Available [address], [address], 10/17/2024 15:26:40 10/14/20 24 10/17/2024 CBC (INCL UDES DIFF/ PLT) neutrophils 47.6 % normal Not Available [address], [address], 10/17/2024 15:26:40 10/14/20 24 10/17/2024 CBC (INCL UDES DIFF/ PLT) lymphocytes 30.5 % normal Not Available [address], [address], 10/17/2024 15:26:40 10/14/20 24 10/17/2024 CBC (INCL UDES DIFF/ PLT) monocytes 14.3 % normal Not Available [address], [address], 10/17/2024 15:26:40 10/14/20 24 10/17/2024 CBC (INCL UDES DIFF/ PLT) eosinophils 6.5 % normal Not Available [address], [address], 10/17/2024 15:26:40 10/14/20 24 10/17/2024 CBC (INCL UDES DIFF/ PLT) basophils 1.1 % normal Not Available [address], [address], 10/17/2024 15:26:40 10/24/20 24 10/24/2024 CBC (INCL UDES DIFF/ PLT) white blood cell count 5.2 thous and/u L 3.8-10 .8 normal Not Available [address], [address], 10/24/2024 17:43:17 10/24/20 10/24/2024 CBC (INCL UDES DIFF/ PLT) red blood cell count 3.37 kenneth on/uL 3.80-5 .10 low Not Available [address], [address], 10/24/2024 17:43:17 10/24/20 24 10/24/2024 CBC (INCL UDES DIFF/ PLT) hemoglobin 11.5 g/dL 11.7-1 5.5 low Not Available [address], [address], 10/24/2024 17:43:17 10/24/2010/24/2024 CBC (INCL UDES DIFF/ PLT) hematocrit 34.8 % 35.0-4 5.0 low Not Available [address], [address], 10/24/2024 17:43:17 10/24/20 24 10/24/2024 CBC (INCL UDES DIFF/ PLT) MCV 103.3 fL 80.0-1 00.0 high Not Available [address], [address], 10/24/2024 17:43:17 10/24/20 24 10/24/2024 CBC (INCL UDES DIFF/ PLT) MCH 34.1 pg 27.0-3 3.0 high Not Available [address], [address], 10/24/2024 17:43:17 10/24/20 24 10/24/2024 CBC (INCL UDES DIFF/ PLT) MCHC 33.0 g/dL 32.0-3 6.0 normal For adult s, a sligh t decre ase in the calcu lated MCHC value (in the range of 30 to 32 g/dL) is most likel y not clini marianela signi cassie t; gwendolynev er, it shoul d be inter prete d with cauti on in corre latio n with other red cell patricia eters and the patie nt's clini samantha condi tion. Not Available [address], [address], 10/24/2024 17:43:17 10/24/20 24 10/24/2024 CBC (INCL UDES DIFF/ PLT) RDW 12.4 % 11.0-1 5.0 normal Not Available [facility] [address], [address], 10/24/2024 17:43:17 10/24/20 24 10/24/2024 CBC (INCL UDES DIFF/ PLT) platelet count 101 thous and/u L 140-40 0 low Not Available [facility] [address], [address], 10/24/2024 17:43:17 10/24/20 24 10/24/2024 CBC (INCL UDES DIFF/ PLT) MPV 10.2 fL 7.5-12 .5 normal Not Available [address], [address], 10/24/2024 17:43:17 10/24/20 24 10/24/2024 CBC (INCL UDES DIFF/ PLT) absolute neutrophils 2454 cells /uL 1500-7 800 normal Not Available [address], [address], 10/24/2024 17:43:17 10/24/20 24 10/24/2024 CBC (INCL UDES DIFF/ PLT) absolute lymphocytes 1596 cells /uL 850-39 00 normal Not Available [address], [address], 10/24/2024 17:43:17 10/24/20 24 10/24/2024 CBC (INCL UDES DIFF/ PLT) absolute monocytes 634 cells /uL 200-95 0 normal Not Available [address], [address], 10/24/2024 17:43:17 10/24/20 24 10/24/2024 CBC (INCL UDES DIFF/ PLT) absolute eosinophils 447 cells /uL 15-500 normal Not Available [address] [place], [address], 10/24/2024 17:43:17 10/24/20 24 10/24/2024 CBC (INCL UDES DIFF/ PLT) absolute basophils 68 cells /uL 0-200 normal Not Available [address] [place], [address], 10/24/2024 17:43:17 10/24/2010/24/2024 CBC (INCL UDES DIFF/ PLT) neutrophils 47.2 % normal Not Available [facility] [address] [place], [address], 10/24/2024 17:43:17 10/24/20 24 10/24/2024 CBC (INCL UDES DIFF/ PLT) lymphocytes 30.7 % normal Not Available [facility] [address], [address], 10/24/2024 17:43:17 10/24/20 24 10/24/2024 CBC (INCL UDES DIFF/ PLT) monocytes 12.2 % normal Not Available [facility] [address], [address], 10/24/2024 17:43:17 10/24/20 24 10/24/2024 CBC (INCL UDES DIFF/ PLT) eosinophils 8.6 % normal Not Available [facility] [address], [address], 10/24/2024 17:43:17 10/24/20 24 10/24/2024 CBC (INCL UDES DIFF/ PLT) basophils 1.3 % normal Not Available [facility] [address] [place], [address], 10/24/2024 17:43:17 02/29/2003/01/2025 LIPID PANEL , STAND JERONIMO cholesterol, total 148 mg/dL <200 normal Not Available [address], [address], 03/01/2025 01:16:01 02/29/2003/01/2025 LIPID PANEL , STAND JERONIMO HDL cholesterol 56 mg/dL > or = 50 normal Not Available [place] [address] [place], [address], 03/01/2025 01:16:01 02/29/2003/01/2025 LIPID PANEL , STAND JERONIMO triglyceride s 65 mg/dL <150 normal Not Available [address], [address], 03/01/2025 01:16:01 02/29/2003/01/2025 LIPID PANEL , STAND JERONIMO LDL-choleste rol 78 mg/dL _(samantha c) normal Refer ence range : <100 Trae able range <100 mg/dL for prima ry preve ntion ; <70 mg/dL for patie nts with CHD or diabe tic patie nts with > or = 2 CHD risk facto rs. LDL-C is now calcu lated using the Katharine n-Hop kins calcu familia n, which is a valid ated novel eseo nery [place] accur acy than the Fried alice equat ion in the estim ation of LDL-C . Katharine WASHINGTON et al. WAYNE. 2013; 310(1 9): 2061- 2068 (http ://ed ucati on.Qu Ly Ceptaris Therapeuticss. com/f aq/FA Q164) Not Available [address], [address], 03/01/2025 01:16:01 02/29/2003/01/2025 LIPID PANEL , STAND JERONIMO chol/HDLC ratio 2.6 (calc ) <5.0 normal Not Available [address] [place], [address], 03/01/2025 01:16:01 02/29/2003/01/2025 LIPID PANEL , STAND JERONIMO non HDL cholesterol 92 mg/dL _(samantha c) <130 normal For patie nts with diabe melba plus 1 major ASCVD risk facto r, treat ing to a non-H DL-C goal of <100 mg/dL (LDL- C of <70 mg/dL ) is consi dered a thera peuti c optio n. Not Available [address], [address], 03/01/2025 01:16:02/29/2003/01/2025 COMPR EHENS JESSICA METAB OLIC PANEL glucose 90 mg/dL 65-139 normal Non-f astin g refer ence inter cassie Not Available [facility] [address], [address], 03/01/2025 01:16:02 02/29/2003/01/2025 COMPR EHENS JESSICA METAB OLIC PANEL urea nitrogen (BUN) 14 mg/dL 7-25 normal Not Available [facility] [address], [address], 03/01/2025 01:16:02 02/29/2003/01/2025 COMPR EHENS JESSICA METAB OLIC PANEL creatinine 1.35 mg/dL 0.60-0 .95 high Not Available [facility] [address], [address], 03/01/2025 01:16:02 02/29/2003/01/2025 COMPR EHENS JESSICA METAB OLIC PANEL eGFR 39 mL/mi n/1.7 3m2 > or = 60 low Not Available [facility] [address], [address], 03/01/2025 01:16:02 02/29/20 25 03/01/2025 COMPR EHENS JESSICA METAB OLIC PANEL BUN/creatini ne ratio 10 (calc ) 6-22 normal Not Available [address], [address], 03/01/2025 01:16:02 02/29/20 25 03/01/2025 COMPR EHENS JESSICA METAB OLIC PANEL sodium 138 mmol/ L 135-14 6 normal Not Available [address], [address], 03/01/2025 01:16:02 02/29/20 25 03/01/2025 COMPR EHENS JESSICA METAB OLIC PANEL potassium 4.3 mmol/ L 3.5-5. 3 normal Not Available [address], [address], 03/01/2025 01:16:02 02/29/20 25 03/01/2025 COMPR EHENS JESSICA METAB OLIC PANEL chloride 104 mmol/ L 98-110 normal Not Available [address], [address], 03/01/2025 01:16:02 02/29/20 25 03/01/2025 COMPR EHENS JESSICA METAB OLIC PANEL carbon dioxide 26 mmol/ L 20-32 normal Not Available [address], [address], 03/01/2025 01:16:02 02/29/20 25 03/01/2025 COMPR EHENS JESSICA METAB OLIC PANEL calcium 9.0 mg/dL 8.6-10 .4 normal Not Available [address], [address], 03/01/2025 01:16:02 02/29/20 25 03/01/2025 COMPR EHENS JESSICA METAB OLIC PANEL protein, total 6.4 g/dL 6.1-8. 1 normal Not Available [address], [address], 03/01/2025 01:16:02 02/29/20 25 03/01/2025 COMPR EHENS JESSICA METAB OLIC PANEL albumin 3.1 g/dL 3.6-5. 1 low Not Available [address], [address], 03/01/2025 01:16:02 02/29/20 25 03/01/2025 COMPR EHENS JESSICA METAB OLIC PANEL globulin 3.3 g/dL_ (calc ) 1.9-3. 7 normal Not Available [address], [address], 03/01/2025 01:16:02 02/29/20 25 03/01/2025 COMPR EHENS JESSICA METAB OLIC PANEL albumin/glob ulin ratio 0.9 (calc ) 1.0-2. 5 low Not Available [address], [address], 03/01/2025 01:16:02 02/29/20 25 03/01/2025 COMPR EHENS JESSICA METAB OLIC PANEL bilirubin, total 2.1 mg/dL 0.2-1. 2 high Not Available [address], [address], 03/01/2025 01:16:02 02/29/20 25 03/01/2025 COMPR EHENS JESSICA METAB OLIC PANEL alkaline phosphatase 61 U/L 37-153 normal Not Available [facility] [address], [address], 03/01/2025 01:16:02 02/29/20 25 03/01/2025 COMPR EHENS JESSICA METAB OLIC PANEL AST 29 U/L 10-35 normal Not Available [address], [address], 03/01/2025 01:16:02 02/29/20 25 03/01/2025 COMPR EHENS JESSICA METAB OLIC PANEL ALT 11 U/L 6-29 normal Not Available [address], [address], 03/01/2025 01:16:02 02/29/2003/01/2025 CBC (INCL UDES DIFF/ PLT) white blood cell count 5.2 thous and/u L 3.8-10 .8 normal Not Available [address], [address], 03/01/2025 01:16:03 02/29/2003/01/2025 CBC (INCL UDES DIFF/ PLT) red blood cell count 3.34 kenneth on/uL 3.80-5 .10 low Not Available [address], [address], 03/01/2025 01:16:03 02/29/2003/01/2025 CBC (INCL UDES DIFF/ PLT) hemoglobin 11.5 g/dL 11.7-1 5.5 low Not Available [facility] [address], [address], 03/01/2025 01:16:03 02/29/2003/01/2025 CBC (INCL UDES DIFF/ PLT) hematocrit 34.4 % 35.0-4 5.0 low Not Available [facility] [address], [address], 03/01/2025 01:16:03 02/29/2003/01/2025 CBC (INCL UDES DIFF/ PLT) MCV 103.0 fL 80.0-1 00.0 high Not Available [facility] [address], [address], 03/01/2025 01:16:03 02/29/2003/01/2025 CBC (INCL UDES DIFF/ PLT) MCH 34.4 pg 27.0-3 3.0 high Not Available [facility] [address], [address], 03/01/2025 01:16:03 02/29/2003/01/2025 CBC (INCL UDES DIFF/ PLT) MCHC 33.4 g/dL 32.0-3 6.0 normal For adult s, a sligh t decre ase in the calcu lated MCHC value (in the range of 30 to 32 g/dL) is most likel y not clini marianela signi ficjyoti t; kameron er, it shoul d be inter prete d with cauti on in corre latio n with other red cell patricia eters and the patie nt's clini samantha condi tion. Not Available [facility] [address], [address], 03/01/2025 01:16:03 02/29/2003/01/2025 CBC (INCL UDES DIFF/ PLT) RDW 12.2 % 11.0-1 5.0 normal Not Available [address], [address], 03/01/2025 01:16:03 02/29/2003/01/2025 CBC (INCL UDES DIFF/ PLT) platelet count 89 thous and/u L 140-40 0 low Not Available [facility] [address], [address], 03/01/2025 01:16:03 02/29/2003/01/2025 CBC (INCL UDES DIFF/ PLT) MPV 10.5 fL 7.5-12 .5 normal Not Available [facility] [address], [address], 03/01/2025 01:16:03 02/29/2003/01/2025 CBC (INCL UDES DIFF/ PLT) absolute neutrophils 2158 cells /uL 1500-7 800 normal Not Available [facility] [address], [address], 03/01/2025 01:16:03 02/29/2003/01/2025 CBC (INCL UDES DIFF/ PLT) absolute lymphocytes 1888 cells /uL 850-39 00 normal Not Available [address], [address], 03/01/2025 01:16:03 02/29/2003/01/2025 CBC (INCL UDES DIFF/ PLT) absolute monocytes 718 cells /uL 200-95 0 normal Not Available [address], [address], 03/01/2025 01:16:03 02/29/2003/01/2025 CBC (INCL UDES DIFF/ PLT) absolute eosinophils 369 cells /uL 15-500 normal Not Available [address], [address], 03/01/2025 01:16:03 02/29/2003/01/2025 CBC (INCL UDES DIFF/ PLT) absolute basophils 68 cells /uL 0-200 normal Not Available [address], [address], 03/01/2025 01:16:03 02/29/2003/01/2025 CBC (INCL UDES DIFF/ PLT) neutrophils 41.5 % normal Not Available [address], [address], 03/01/2025 01:16:03 02/29/2003/01/2025 CBC (INCL UDES DIFF/ PLT) lymphocytes 36.3 % normal Not Available [address], [address], 03/01/2025 01:16:03 02/29/2003/01/2025 CBC (INCL UDES DIFF/ PLT) monocytes 13.8 % normal Not Available [address], [address], 03/01/2025 01:16:03 02/29/20 25 03/01/2025 CBC (INCL UDES DIFF/ PLT) eosinophils 7.1 % normal Not Available [facility] [address] [place], [address], 03/01/2025 01:16:03 02/29/20 25 03/01/2025 CBC (INCL UDES DIFF/ PLT) basophils 1.3 % normal Not Available [facility] [address] [place], [address], 03/01/2025 01:16:03 Result Notes None recorded. Problems Name Problem SNOMED Code Status Onset Date Resolution Date Notes Provider Name and Address Organization Details Recorded Time Abdominal pain 52129576 Active 2023 MASOUD Thompson, [place] - [facility] 4 15:12:40 Gastroesophage al reflux disease without esophagitis 303926219 Active 2023 Nabila Prince [place] null, [place] [facility] 4 15:12:40 Edema of lower extremity 188664564 Active 2023 Nabila Prince [place], [place] [facility] 4 15:12:41 Vitamin D below reference range 358844510 Active 2023 Tree Ocampo MD Attn: Lisandro vee,[address] [facility], [place], [address], [place] - [facility] 4 21:58:33 Essential hypertension 41498552 Active 2023 Nabila Prince [place], [place] [facility] 4 09:50:10 Imaging of liver abnormal 755486446 Active 2023 Tree Ocampo MD Attn: Lisandro vee,[address] [facility], [place], [address], [place] [facility] 4 22:22:51 Cellulitis of lower limb 258606461 Active 2023 Nabila Prince [place], [place] [facility] 4 13:13:25 Problem Notes None recorded. Procedures Surgical History Date Name Laterality Status Provider Name and Address Organization Details Recorded Time Eye Surgery completed Joellen Neal MA [facility] 03/10/2024 14:44:20 Knee Surgery completed Joellen Neal MA [facility] 03/10/2024 14:44:48 Imaging Results None recorded. Procedure Notes None recorded. Medical Equipment None Reported. Allergies Allergen ID Allergen Name Allergen Category Reaction Reaction Severity Criticality Documentation Date Start Date Code Code System Note Provider Name and Address Organization Details Recorded Time 027656 codeine medicatio n dizziness Not available Not available 03/10/2024 2670 RxNorm Not Available Not Available Not Available Medications Name Sig Start Date Stop Date Status Note LastModified by Organization Details LastModified Time amoxicillin 500 mg tablet 11/04 completed Not Available Not Available Not Available famotidine 20 mg tablet TAKE 1 TABLET BY MOUTH TWICE DAILY 2024 active Not Available Not Available Not Avai lable cephalexin 500 mg capsule Take 1 capsule 3 times a day by oral route for 7 days. 02/17 completed Not Available Not Available Not Available omeprazole 20 mg capsule,loraine yed release 07/13 completed Not Available Not Available Not Available furosemide 20 mg tablet TAKE 1 TABLET BY MOUTH DAILY NEEDED 10/14 completed Not Available Not Available Not Available atenolol 50 mg tablet TAKE 1 TABLET BY MOUTH DAILY 2024 active Not Available Not Available Not Avai lable spironolacto ne 50 mg tablet TAKE 1 TABLET BY MOUTH DAILY active Not Available Not Available No t Available omeprazole 20 mg tablet,delay ed release Take 1 tablet every day by oral route. 06/08 completed Not Available Not Available Not Available Vitals Date Recorded Body height Body mass index (BMI) Body weight Heart rate Oxygen saturation Oxygen saturation in Arterial blood by Pulse oximetry Systolic blood pressure Diastolic blood pressure Provider Name and Address Organization Details Last Updated DateTime 4 157.48 cm 35.7 kg/m2 74929.5 1 g 66 /min 97 % 97 % 136 mm[Hg] 70 mm[Hg] Tyra Gilliam MA [facility] 4 16:04:13 Date Recorded Body height Body mass index (BMI) Body weight Heart rate Oxygen saturation Oxygen saturation in Arterial blood by Pulse oximetry Systolic blood pressure Diastolic blood pressure Provider Name and Address Organization Details Last Updated DateTime 4 157.48 cm 33.8 kg/m2 38126.5 9 g 71 /min 98 % 98 % 134 mm[Hg] 62 mm[Hg] Tyra Gilliam MA [facility] 4 15:08:22 Date Recorded Body height Body mass index (BMI) Body weight Heart rate Oxygen saturation Oxygen saturation in Arterial blood by Pulse oximetry Systolic blood pressure Diastolic blood pressure Provider Name and Address Organization Details Last Updated DateTime 4 157.48 cm 33.5 kg/m2 65532.4 g 74 /min 98 % 98 % 118 mm[Hg] 62 mm[Hg] Jeet Byrd MA [facility] 4 12:07:21 Date Recorded Body height Body mass index (BMI) Body weight Heart rate Oxygen saturation Oxygen saturation in Arterial blood by Pulse oximetry Systolic blood pressure Diastolic blood pressure Provider Name and Address Organization Details Last Updated DateTime 4 157.48 cm 34.1 kg/m2 80126.7 g 73 /min 97 % 97 % 122 mm[Hg] 72 mm[Hg] Paris Chan MA [facility] 4 12:17:22 Date Recorded Body weight Body mass index (BMI) Body height Heart rate Oxygen saturation Oxygen saturation in Arterial blood by Pulse oximetry Systolic blood pressure Diastolic blood pressure Provider Name and Address Organization Details Last Updated DateTime 5 05426.4 8 g 34.6 kg/m2 154.94 cm 67 /min 98 % 98 % 143 mm[Hg] 82 mm[Hg] Nabila Prince MA [facility] 5 12:15:32 Social History Question Answer Notes LastModified by Organizat ion Details LastModified Time Tobacco Smoking Status Never Smoker Joellen Neal MA [facility], [facility] 03/10/2024 14:47:22 Do You Have An Advance Directive? Yes Information not available 06/08/2024 What Is Your Level Of Alcohol Consumption? None Information not available 03/10/2024 Are You Blind Or Do You Have Difficulty Seeing? No Information not available 03/10/2024 What Is Your Level Of Caffeine Consumption? Moderate Information not available 06/08/2024 In The 14 Days Before Symptom Onset, Have You Had Close Contact With A Laboratory-confir med COVID-19 While That Case Was Ill? No Information not available 11/04/2024 In The 14 Days Before Symptom Onset, Have You Had Close Contact With A Person Who Is Under Investigation For COVID-19 While That Person Was Ill? No Information not available 11/04/2024 Have You Been To An Area Known To Be High Risk For COVID-19? No Information not available 11/04/2024 Are You Currently Employed? No Retired Information not available 06/08/2024 Are You Deaf Or Do You Have Serious Difficulty Hearing? No Information not available 03/10/2024 What Type Of Diet Are You Following? REGULAR Information not available 06/08/2024 Are There Any Guns Present In Your Home? No Information not available 11/04/2024 What Was The Date Of Your Most Recent Tobacco Screening? 02/17/2025 [email or web address] Information not available 02/17/2025 What Is Your Relationship Status? Information not available 03/10/2024 Do You Use Your Seat Belt Or Car Seat Routinely? Yes Information not available 06/08/2024 Do You Have Smoke And Carbon Monoxide Detectors In Your Home? Yes Information not available 06/08/2024 Do You Feel Stressed (tense, Restless, Nervous, Or Anxious, Or Unable To Sleep At Night)? CH9029-9 Information not available 03/10/2024 Do You Use Any Illicit Or Recreational Drugs? No Information not available 06/08/2024 Do You Use Sunscreen Routinely? Yes Information not available 11/04/2024 Has Tobacco Cessation Counseling Been Provided? No Information not available 06/08/2024 Do You Or Have You Ever Used Any Other Forms Of Tobacco Or Nicotine? No Information not available 06/08/2024 Sex: Female Functional Status Question Answer Note LastModified by Organization D etails LastModified Time Are you able to care for yourself? Yes Information n ot available 03/10/2024 Mental Status None recorded. Family History Relationship Description Onset Age of this Age Resolved Age Notes LastModified by Organization Details LastModified Time Mother Cerebrovascu lar accident [email or web address] Not available 09/2024 14:46:01 Mother Hypertensive disorder [email or web address] Not available 2023 14:46:14 Medical History Condition Response Acid Reflux (GERD) Y Cancer Y Gynecological HistoryNo gynecological history recorded. Obstetrics History GPAL:G 0 P 0 0 0 0 Immunizations Vaccine Type Date Status Note Provider Nam e and Address Organization Details Recorded Time Influenza, adjuvanted, trivalent, PF 09/26/2019 completed MASOUD [place], [place] [facility] 06/08/2024 12:07:29 Influenza, high-dose, quadrivalent, PF 09/03/2020 [place] MAS[place] [facility] 06/08/2024 12:07:29 Influenza, high-dose, quadrivalent, PF 09/04/2021 MAS[place]D [place] [facility] 06/08/2024 12:07:29 Influenza, high-dose, quadrivalent, PF 09/24/2022 MAS[place]D [place] [facility] 06/08/2024 12:07:29 Influenza, high-dose, quadrivalent, PF 10/02/2023 MASOUD [place] [facility] 06/08/2024 12:07:29 COVID-19, mRNA, LNP-S, PF, 100 mcg/0.5mL dose or 50 mcg/0.25mL dose 12/02/2021 MASOUD [place] [facility] 06/08/2024 12:07:29 COVID-19, mRNA, LNP-S, PF, 100 mcg/0.5mL dose or 50 mcg/0.25mL dose 01/22/2021 MASOUD [place] [facility] 06/08/2024 12:07:29 COVID-19, mRNA, LNP-S, PF, 100 mcg/0.5mL dose or 50 mcg/0.25mL dose 02/19/2021 MASOUD [place] [facility] 06/08/2024 12:07:29 COVID-19, mRNA, LNP-S, bivalent, PF, 50 mcg/0.5 mL or 25mcg/0.25 mL dose 10/13/2022 completed MAS[place] [facility] 06/08/2024 12:07:29 RSV, recombinant, protein subunit RSVpreF, adjuvant reconstituted, 0.5 mL, PF 11/10/2023 [place] [facility] 06/08/2024 12:07:29 influenza, unspecified formulation 09/10/2018 [place] [facility] 06/08/2024 12:07:29 Influenza, high-dose, trivalent, PF 09/05/2015 [place] [facility] 06/08/2024 12:07:29 Influenza, high-dose, trivalent, PF 09/17/2017 [place] [facility] 06/08/2024 12:07:29 Influenza, split virus, quadrivalent, PF 09/11/2016 [place] MASODU [place] [facility] 06/08/2024 12:07:29 COVID-19, mRNA, LNP-S, PF, 50 mcg/0.5 mL 08/08/2024 [place]OUD [place] [facility] 02/17/2025 12:11:41 Influenza, high-dose, trivalent, PF 09/23/2024 AMSOUD [place] [facility] 02/17/2025 12:11:41 Past Encounters Encounter ID Performer Location Encounter Start Date Encounter Closed Date Diagnosis/Indication Diagnosis SNOMED-CT Code Diagnosis ICD10 Code Diagnosis Note [id number] Tree Ocampo MD [facility] - [place] [address] [place] [address] 03/10/2024 14:30:26 03/10/2024 15:07:57 Abdominal pain 59804103 R10.9 Gastroesop hageal reflux disease without esophagitis 846089664 K21.9 Edema of l ower extremity 436833772 R60.0 Vitamin D below reference range 636856218 E55.9 [id number] MD Shawn Cobos (Adult Med) [address] [place] [address] 06/08/2024 15:23:27 06/08/2024 16:49:51 Obesity 349969142 E66.8 Gastroesop hageal reflux disease without esophagitis 419067662 K21.9 Edema of l ower extremity 592734753 R60.0 Essential hypertension 44188294 I10 [id number] MD Shawn Cobos (Adult Med) [address] [place] [address] 07/13/2024 14:56:22 07/13/2024 15:30:17 Essential hypertension 06806060 I10 Gastroesop hageal reflux disease without esophagitis 887511661 K21.9 Imaging of liver abnormal 702934623 R93.2 [id number] MD Shawn Cobos (Adult Med) [address] [place] [phone] 10/14/2024 11:53:40 10/14/2024 12:46:48 Gastroesophageal reflux disease without esophagitis 404977247 K21.9 Essential hypertension 88192085 I10 Imaging of liver abnormal 944193397 R93.2 [id number] MD Shawn Cobos (Adult Med) [address] [place] [address] 11/04/2024 11:31:09 11/04/2024 13:14:24 Body mass index 30+ - obesity 241795519 Z68.34 Obesity 217333751 E66.9 Cellulitis of lower limb 890754147 L03.359 [id number] MD Shawn Cobos (Adult Med) [address] [place] [phone] 02/17/2025 11:50:54 02/17/2025 13:13:48 Body mass index 30+ - obesity 514031043 Z68.34 Obesity 968213179 E66.9 Cirrhosis of liver 619[address] 007 K74.60 Gastroesop hageal reflux disease without esophagitis 030467056 K21.9 Edema of l ower extremity 646978002 R60.0 Essential hypertension 01183094 I10 Imaging of liver abnormal 865777029 R93.2 Health Concerns Section Related Observation LastModified by Organization Detai ls LastModified Time None Recorded Concern Status LastModified by Organization Details LastModified Time None Recorded Advance Directives Directive Y: Payers Encounter Date Sequence Insurance Name Policy Number Policy Christensen Covered Member ID Christensen Member ID Guarantor Name 06/08/2024 1 [facility] (MEDICARE REPLACEMENT/A DVANTAGE - HMO) [id number] Janine Kahn [id number] Janine Kahn 07/13/2024 1 [facility] (MEDICARE REPLACEMENT/A DVANTAGE - HMO) [id number] Janine Kahn [id number] Janine Kahn 10/14/2024 1 [facility] (MEDICARE REPLACEMENT/A DVANTAGE - HMO) [id number] Janine Kahn [id number] Janine Kahn 11/04/2024 1 [facility] (MEDICARE REPLACEMENT/A DVANTAGE - HMO) [id number] Janine Kahn [id number] Janine Kahn 02/17/2025 1 [facility] (MEDICARE REPLACEMENT/A DVANTAGE - HMO) [id number] Janine Kahn [id number] Janine Kahn Notes Date Note Type Note Provider Name and Address Organization Details Recorded Time 06/08/2024 text/html 83-year-old with a history of GERD hypertension and low vitamin D level to follow-up on medical issues GERD he is to have some medicine for that edema from time to time in the lower extremities. Nodular liver no pain Tree Ocampo MD Attn: [address]ing[address] [place], [address], [facility] 07/03/2024 15:11:12 07/13/2024 text/html hypertension no headache or dizziness. GERD no nausea no vomiting. Imaging of the liver abnormal she does not want to go to [place] to see a specialist there has questions of possible cirrhosis she has not had any jaundice or any fatigue there has not been any bleeding Tree Ocampo MD Attn: [address] [place], [address], [facility] 07/13/2024 22:24:11 10/14/2024 text/html hypertension blo od pressure is good. GERD famotidine sometimes still has some breakthrough symptoms. Abnormal liver imaging worrisome for cirrhosis but she does not want to see specialists or do any other further testing at this time Tree Ocampo MD Attn: Accounting[address] [facility], [place], [address], [facility] 10/14/2024 23:15:22 11/04/2024 text/html dropped a frozen ice cream container on her left leg blood days ago now it is a little bit red she has been using some triple antibiotic ointment no loss of function Tree Ocampo MD Attn: Accounting[address] [facility], [place], [address], [facility] 11/05/2024 14:31:53 02/17/2025 text/html hypertension blo od pressure is up a little bit today but she feels fine edema lower extremities is stable she needs reimaging of her liver her GERD has been doing fine she did have a nodular contour of the liver Tree Ocampo MD Attn: Accounting, [address] [facility], [place], [address], [facility] 02/18/2025 15:11:39 OBGyn Episode No OBEpisode recorded.
--- OUTSIDE RECORDS SUMMARY | 2025-03-14 13:43 | XMS_ITS | CONTINUITY OF CARE DOCUMENT ---
Author Name tracy molina Address Unknown Organization [facility] Address [address] [place] [address] Phone [phone] Care Team Providers Care Device Engineer Name Role Phone Benedicto Arnold MD Unavailable JAVON RODRIGUEZ MD Unavailable [phone] JAVON RODRIGUEZ MD Unavailable [phone] PROBLEMS Condition Status Date Provider Notes Cardiovascular screening active Benedicto combs MD Preoperative cardiovascular examination active Benedicto Arnold MD HTN active Benedicto Arnold MD ENCOUNTERS Date Type Provider Location Encounter Diag nosis - In-person encounter Office Visit Benedicto Arnold MD [facility] Cardiovascular screeningPreoperative cardiovascular examinationHTN VITAL SIGNS Date Observation Value Provider Body Mass Index (Ratio) 32.88 kg/m2 Ramu Arnold MD blood pressure, diastolic 78 mm[Hg] Li nkLogic blood pressure, systolic 147 mm[Hg] Marisol kLogic blood pressure, cuff size regular Kr isty Dundee blood pressure, diastolic 78 mm[Hg] Kr isty Dundee blood pressure, systolic 147 mm[Hg] Kri sty Marcelo blood pressure, resting Yes Trent ty Marcelo respiratory rate E&M 19 /min Stephanie Marcelo oxygen saturation, oximetry 97 % Stephanie Dundee pulse rate 70 /min Stephanie Marcelo height E&M 62 [in_i] Stephanie Robertson weight E&M 179.8 [lb_av] Stephanie Robertson ALLERGIES Allergy Name Onset Date Reaction Criticality Status CODEINE Low Criticality active HISTORY OF MEDICATION USE Medication Status Instructions Dates Provider Indications Com ments SPIRONOLACTONE 50 MG ORAL TABLET active take one tablet by mouth once daily Stephanie Robertson #90, 90 days supply, Prescribed by MORENA BEATTY, Filled 03/29/2021 OMEPRAZOLE 20 MG ORAL CAPSULE DELAYED RELEASE active take one tablet by mouth once daily Stephanie Robertson #90, 90 days supply, Prescribed by MORENA BEATTY, Filled 03/29/2021 FUROSEMIDE 20 MG ORAL TABLET active take one tablet by mouth once daily Stephanie Robertson #90, 90 days supply, Prescribed by MORENA BEATTY, Filled 03/29/2021 ATENOLOL 50 MG ORAL TABLET active take one tablet by mouth once daily Stephanie Robertson #90, 90 days supply, Prescribed by MORENA BEATTY, Filled 03/29/2021 VITAMIN D (ERGOCALCIFEROL) 1.25 MG (02615 UT) ORAL CAPSULE active take one tablet by mouth once weekly Stephanie Robertson #13, 90 days supply, Prescribed by MORENA BEATTY, Filled 06/04/2021 SOCIAL HISTORY Date Observation Value Provider drug use no Benedicto Arnold MD alcohol use no Benedicto Arnold MD social history E&M S moking History: P alissa has never smoked. Benedicto Arnold MD social history reviewed E&M reviewed - no changes required Benedicto Arnold MD smoking status Never smoker Stephanie Marcelo INSURANCE PROVIDERS Payer name Policy type / Coverage type [place] [employer] party ID [facility] MEDICARE COMPLETE HMO Other [id number] TREATMENT PLAN Date Name Performer [id number],C,s he states normally it is in the 120s-130s B P today: 147/78 Benedicto Arnold MD [id number],C,s he has no symtoms of cardiac disease and i feel that she can undergo her surgery as a low risk candidate Benedicto Arnold MD Cardiology:she state s normally it is in the 120s-130s B P today: 147 Benedicto Arnold MD Cardiology:she has n o symtoms of cardiac disease and i feel that she can undergo her surgery as a low risk candidate Benedicto Arnold MD HISTORY OF PROCEDURES Procedure Date Procedure Name Provider Procedure Notes S tatus EKG Benedicto Arnold MD completed
--- OUTSIDE RECORDS SUMMARY | 2025-03-14 13:43 | XMS_ITS | Continuity of Care Document ---
Author Organization [facility] Address [address] [place] [address] [address] [place] [address] Phone Care Team Providers Care Bundles Hanger Name Role Phone Sabi Davila Unavailable Unavailable Advance Directives Directive Yes / No Effective Date File Name No Information Encounters Encounter Description Practice Location Reason(s) For Visit Diagnoses Date Provider Providers Copied on Encounter [facility], [address], [place], [place], [id number], [place] tel:[phone] [facility] [place] No Information Apr-2 5-200 0 Lola Celestin. [address] , [address], [place], [address], [place]. tel:[phone] Family History Family Member Type Diagnosis Age At Onset No Information Payers Payer name Insurance type Covered democrat ID Authoriza tion(s) No Information Social History Type Description Quantity Date Captured Comments Sex Female Smoking Status No Information Chief Complaint And Reason For Visit No Information Reason For Referral Reason For Referral No Information History Of Present Illness Encounter Date Complaint History Of Prese nt Illness No Information Functional Status Date Functional Assessmen t No Information Instructions Date Instruction Additional Infor mation No Information Assessments Type Assessment Date No Information Patient Care Teams Name Effective Dates (start - stop) Status Members No Information
== END 2025-03-14 12:50 | disposition home or self-care (01) ==
PROVIDERS: PCP Internal Medicine; Visit Provider Internal Medicine
DX: K74.60 Unspecified cirrhosis of liver (principal); K80.20 Calculus of gallbladder without cholecystitis without obstruction
CPT/HCPCS: 74183; A9577

== ENCOUNTER 2025-09-19 09:22 | Outpatient (CLI) | payer MEDICARE, SELFPAY ==
--- NOTE | ~2025-09-19 | US_ITS ---
US abdomen limited INDICATION: Cirrhosis PROCEDURE: Realtime right upper abdominal ultrasound. COMPARISON: No prior studies for comparison. FINDINGS: The pancreas is normal without focal mass or pancreatic ductal dilation. Liver echotexture is increased, consistent with fatty infiltration. Nodular liver surface, compatible with cirrhosis. There is normal directional flow in the portal vein. There are gallstones. No gallbladder wall thickening. Common bile duct measures mm. No sonographic Bhagat's sign. IMPRESSION: 1: Cirrhosis. 2: Cholelithiasis. Reviewed, dictated and finalized at location O.
--- OUTSIDE RECORDS SUMMARY | 2025-09-19 10:46 | XMS_ITS | Clinical Summary ---
Author Organization [facility] Address [address] [place] [address] Care Team Providers Care Central Office Operator Name Role Phone Higinio Ocampo MD Primary Care Provider [phone] Source Comments [facility] Affiliates and Associated Physician Practices is amultiple site organization consisting of ambulatory clinics and hospital sitesin [place], [place]. This disclosure is being madepursuant to the Care Everywhere program and may not contain all information available regarding this patient. Last updated 18.[facility] Allergies Active Allergy Reactions Criticality Noted Date Comments Codeine Vomiting 06/27/2025 Medications * Be aware that medications may not be up to date on this document. Alwaysverify current medications with the patient. atenolol (Tenormin) 50 MG tablet Take 1 (one) tablet by mouth once daily Active famotidine (Pepcid) 20 MG tablet Take 1 (one) tablet by mouth once daily Active furosemide (Lasix) 20 MG tablet Take 1 (one) tablet by mouth once daily Active spironolactone (Aldactone) 50 MG tablet Take 1 (one) tablet by mouth once daily Active Encounters Date Type Department Care Team Description 09/05/2025 Telephone [facility] - [facility] [address] [place] [address] Dc Paul RN Follow-up 08/01/2025 Telephone [facility] - [facility] [address] [facility] [place] [address] Billie Carcamo APRN-CNP Results 06/28/2025 2:57 AM CDT - 06/28/2025 6:[address] [facility] EM[facility]ENC[facility]PART[facility] [address] [place] [address] Diya Freedman MD Fall, initial encounter (Primary Dx); Closed fracture of nasal bone, initial encounter; Facial laceration, initial encounter Discharge Disposition: Home or Self Care 06/27/2025 12:30 PM CDT Office Visit [facility] [place] [address] Billie Carcamo APRN-CNP Cirrhosis of liver without ascites, unspecified hepatic cirrhosis type (HCC) (Primary Dx); Hyperbilirubinemia; Class 1 obesity due to excess calories with serious comorbidity and body mass index (BMI) of 34.0 to 34.9 in adult 06/27/2025 Travel from Last 3 Months Immunizations Immunization Administration Dates Next Due TDAP (7yrs+) 06/27/2025 Social History Tobacco Use Types Packs/Day Years Used Date Smoking Tobacco: Never Smokeless Tobacco: Never Tobacco Cessation:Counseling Given: Not Answered Alcohol Use Standard Drinks/Week Comments Never 0 (1 standard drink = 0.6 oz pur e alcohol) Comments Unknown Sex and Gender Information Value Date Recorded Sex Assigned at Not on file Legal Sex Female 6:31 AM CDT Gender Identity Not on file Sexual Orientation Not on file Last Filed Vital Signs Vital Sign Reading Time Taken Comments Blood Pressure 150/63 06/28/2025 6:04 AM CDT Pulse 60 06/28/2025 6:04 AM CDT Temperature 36.4 C (97.5 F) 06/28/2025 6:04 AM CDT Respiratory Rate 16 06/28/2025 6:04 AM CDT Oxygen Saturation 99% 06/28/2025 6:04 AM CDT Inhaled Oxygen Concentration - - Weight 81.6 kg (180 lb) 06/27/2025 1:53 PM CDT Height 154.9 cm (5' 1) 06/27/2025 1:53 PM CDT Body Mass Index 34.01 06/27/2025 1:53 PM CDT Plan of Treatment Upcoming Encounters Date Type Department Care Team (Late st Contact Info) Description 09/28/2025 3:00 PM CDT Office Visit [facility] - [facility] [address] [place] [address] Billie Carcamo, SMALL OFFSET PRINTER-CELL BIOLOGIST [address] [facility] [address] [place] [address] Health Maintenance Due Date Last Done Comments BONE DENSITY TESTING 1942 PNEUMOCOCCAL VACCINE 50+ (1 of 2 - PCV) 1961 ZOSTER VACCINE (1 of 2) 1992 HEPATITIS B VACCINE (1 of 3 - Risk 3-dose series) 2002 Respiratory Syncytial Virus (RSV) Vaccine Pt: or over 60 yrs (1 - 1-dose 75+ series) 2017 DEPRESSION SCREENING 11/30/2024 MEDICARE AWV CALENDAR YEAR 2024 COVID-19 VACCINE ( season) 2025 08/08/2024, 10/13/2022, 12/02/2021, Additional history exists INFLUENZA VACCINE (#1) 2025 , 10/02/2023, 09/24/2022, Additional history exists DTAP/TDAP/TD VACCINES (2 - Td or Tdap) 06/27/2035 06/27/2025 HIB VACCINE Aged Out No longer eligi ble based on patient's age to complete this topic HPV VACCINE Aged Out No longer eligi ble based on patient's age to complete this topic MENINGOCOCCAL (Group B) VACCINE SHARED DECISION-MAKING Aged Out No longer eligible based on patient's age to complete this topic MENINGOCOCCAL GROUPS A/C/Y/W VACCINE Aged Out No longer eligible based on patient's age to complete this topic Procedures Procedure Name Priority Date/Time Associated Diagnosis Comments ZACHARY BLOOD TITER 07/10/2025 11:17 AM CDT HEPATITIS C AB W/RFLX TO HCV RNA QN PCR Routine 07/10/2025 11:17 AM CDT Cirrhosis of liver without ascites, unspecified hepatic cirrhosis type (HCC) SMOOTH MUSCLE ANTIBODY W REFLEX TITER Routine 07/10/2025 11:17 AM CDT Cirrhosis of liver without ascites, unspecified hepatic cirrhosis type (HCC) PT-INR STAT 07/10/2025 11:17 AM CDT Cirrhosis of liver without ascites, unspecified hepatic cirrhosis type (HCC) IRON + TIBC PANEL Routine 07/10/2025 11: 17 AM CDT Cirrhosis of liver without ascites, unspecified hepatic cirrhosis type (HCC) HEPATITIS B SURFACE ANTIBODY QUANT Routine 07/10/2025 11:17 AM CDT Cirrhosis of liver without ascites, unspecified hepatic cirrhosis type (HCC) HEPATITIS B CORE ANTIBODY TOTAL Routine 07/10/2025 11:17 AM CDT Cirrhosis of liver without ascites, unspecified hepatic cirrhosis type (HCC) HEPATITIS A ANTIBODY Routine 07/10/2025 11:17 AM CDT Cirrhosis of liver without ascites, unspecified hepatic cirrhosis type (HCC) GGT Routine 07/10/2025 11:17 AM CDT Cirrhosis of liver without ascites, unspecified hepatic cirrhosis type (HCC) FERRITIN Routine 07/10/2025 11:17 AM CDT Cirrhosis of liver without ascites, unspecified hepatic cirrhosis type (HCC) CERULOPLASMIN Routine 07/10/2025 11:17 AM CDT Cirrhosis of liver without ascites, unspecified hepatic cirrhosis type (HCC) ZACHARY BLOOD SCREEN W/REFLEX TITER Routine 07/10/2025 11:17 AM CDT Cirrhosis of liver without ascites, unspecified hepatic cirrhosis type (HCC) MITOCHONDRIAL ANTIBODY SCREEN Routine 07/10/2025 11:17 AM CDT Cirrhosis of liver without ascites, unspecified hepatic cirrhosis type (HCC) [id number] BLOOD Routine 07/10/2025 11:17 AM CDT Cirrhosis of liver without ascites, unspecified hepatic cirrhosis type (HCC) COMPREHENSIVE METABOLIC PANEL Routine 07/10/2025 11:17 AM CDT Cirrhosis of liver without ascites, unspecified hepatic cirrhosis type (HCC) CBC W AUTO DIFFERENTIAL Routine 07/10/2025 11:17 AM CDT Cirrhosis of liver without ascites, unspecified hepatic cirrhosis type (HCC) ED LACERATION REPAIR Routine 06/28/2025 5:[address] FACIAL BONES WO CONTRAST STAT 06/27/2025 3:11 PM CDT Fall, initial encounter CT CERVICAL SPINE WO CONTRAST STAT 06/27/2025 3:11 PM CDT Fall, initial encounter CT HEAD WO CONTRAST STAT 06/27/2025 3 :11 PM CDT Fall, initial encounter XR KNEE LEFT 3VW STAT 06/27/2025 2:48 PM CDT Fall, initial encounter from Last 3 Months Results * HEPATITIS C AB W/RFLX TO HCV RNA QN PCR (07/10/2025 11:17 AM CDT) Hepatitis C Antibody NON-REACTI VE NON-REACT JESSICA [facility] Comment: HCV antibody was non-reactive. There is no laboratory evidence of HCV infection. In most cases, no further action is required. However, if recent HCV exposure is suspected, a test for HCV RNA (test code 70358) is suggested. For additional information please refer to http://education.Haul Zing./faq/OVR15g0 (This link is being provided for informational/ educational purposes only.) Test Performed at: [email or web address] [address] [address] MARGARITO CORONA MD Blood BLOOD SPECIMEN / Unknown 07/10/2025 11:17 AM CDT 07/10/2025 11:19 AM CDT Billie Carcamo [facility] - CHEMISTRY ORD ERABLES Final Result Performing Organization Address [facility] [place] [address] * SMOOTH MUSCLE ANTIBODY W REFLEX TITER (07/10/2025 11:17 AM CDT) Smooth Muscle Antibody Screen NEGATIVE NEGATIVE [facility] Comment: Test Performed at: [facility] [address] [place] [address] ADAN COLEY Blood BLOOD SPECIMEN / Unknown 07/10/2025 11:17 AM CDT 07/10/2025 11:19 AM CDT Billie Carcamo [facility] - SEROLOGY ORDE RABLES Final Result Performing Organization Address [facility] [place] [address] * MITOCHONDRIAL ANTIBODY SCREEN (07/10/2025 11:17 AM CDT) Pathologist [facility] Mitochondrial M2 Antibody <20.0 U [facility] Comment: Reference Range: NEGATIVE: < OR = 20.0 EQUIVOCAL: 20.1-24.9 POSITIVE: > OR = 25.0 Test Performed at: [facility] [address] [place] [address] SELAM SANTIAGO MD,PHD,JOYA Blood BLOOD SPECIMEN / Unknown 07/10/2025 11:17 AM CDT 07/10/2025 11:19 AM CDT Billie Carcamo SMALL OFFSET PRINTERWESSON [facility] - CHEMISTRY ORD ERABLES Final Result Performing Organization Address [facility] [place] [address] * (ABNORMAL) HEPATITIS B SURFACE ANTIBODY QUANT (07/10/2025 11:17 AM CDT) Pathologist [facility] Hepatitis B Virus Surface Antibody Quantitative <5(L) > OR = 10 mIU/mL [facility] Comment: Patient does not have immunity to hepatitis B virus. For additional information, please refer to http://education.DCITS.Palamida/faq/RTW801 (This link is being provided for informational/ educational purposes only). Test Performed at: [email or web address] [id number] [facility] [place] [address] MARGARITO CORONA MD Blood BLOOD SPECIMEN / Unknown 07/10/2025 11:17 AM CDT 07/10/2025 11:19 AM CDT Billie Carcamo APRN-[facility] - SEROLOGY ORDE RABLES Final Result Performing Organization Address [facility] [place] [address] * (ABNORMAL) ZACHARY BLOOD TITER (07/10/2025 11:17 AM CDT) ZACHARY 1:40(H) titer [facility] Comment: A low level ZACHARY titer may be present in pre-clinical autoimmune diseases and normal individuals. Reference Range <1:40 Negative 1:40-1:80 Low Antibody Level >1:80 Elevated Antibody Level ZACHARY Pattern Nuclear, Speckled( A) [facility] Comment: Speckled pattern is associated with mixed connective tissue disease (MCTD), systemic lupus erythematosus (SLE), Sjogren's syndrome, dermatomyositis, and systemic sclerosis/polymyositis overlap. AC-2,4,5,29: Speckled International Consensus on ZACHARY Patterns (https://doi.org/10.1515/bula-3871-5641) Test Performed at: [email or web address] [address] [facility] [place] [address] MARGARITO CORONA MD 07/10/2025 11:1 7 AM CDT 07/10/2025 11:19 AM CDT Billie Carcamo APRN-[facility] - CHEMISTRY ORD ERABLES Final Result Performing Organization Address [facility]/ZIP Co de Phone Number [facility] [id number] [place] [address] * (ABNORMAL) ZACHARY BLOOD SCREEN W/REFLEX TITER (07/10/2025 11:17 AM CDT) Pathologist [facility] ZACHARY Screen POSITIVE( A) NEGATIVE [facility] Comment: ZACHARY IFA is a first line screen for detecting the presence of up to approximately 150 autoantibodies in various autoimmune diseases. A positive ZACHARY IFA result is suggestive of autoimmune disease and reflexes to titer and pattern. Further laboratory testing may be considered if clinically indicated. For additional information, please refer to http://education.Kereos/faq/OCI279 (This link is being provided for informational/ educational purposes only.) Test Performed at: [place] [address] MARGARITO CORONA MD Blood BLOOD SPECIMEN / Unknown 07/10/2025 11:17 AM CDT 07/10/2025 11:19 AM CDT Billie Carcamo [facility] - CHEMISTRY ORD ERABLES Final Result Performing Organization Address [facility] Co de Phone Number [facility] [address] [place] [address] * CERULOPLASMIN (07/10/2025 11:17 AM CDT) [facility] Ceruloplasmin 18 14 - 48 mg/dL [facility] Comment: Test Performed at: [place] [address] MARGARITO CORONA MD Blood BLOOD SPECIMEN / Unknown 07/10/2025 11:17 AM CDT 07/10/2025 11:19 AM CDT Billie Carcmao [facility] - CHEMISTRY ORD ERABLES Final Result Performing Organization Address [facility] [place] [address] * [id number] BLOOD (07/10/2025 11:17 AM CDT) [facility] Oyvmh-1-Goolbyrt sin 141 83 - 199 mg/dL [facility] Comment: Test Performed at: [facility] [place] [address] MARGARITO CORONA MD Blood BLOOD SPECIMEN / Unknown 07/10/2025 11:17 AM CDT 07/10/2025 11:19 AM CDT Billie DEUTSCH LAB - CHEMISTRY ORD ERABLES Final Result Performing Organization Address [facility] de Phone Number [address] [address] * (ABNORMAL) PT-INR (07/10/2025 11:17 AM CDT) Pathologist [facility] INR 1.3(H) [facility] Comment: Reference Range 0.9-1.1 Moderate-intensity Warfarin Therapy 2.0-3.0 Higher-intensity Warfarin Therapy 3.0-4.0 PT 14.1(H) 9.0 - 11.5 sec [facility] Comment: For additional information, please refer to http://education.Haul Zing./faq/CHB400 (This link is being provided for informational/ educational purposes only.) Test Performed at: [facility] [address] MARGARITO CORONA MD Blood BLOOD SPECIMEN / Unknown 07/10/2025 11:17 AM CDT 07/10/2025 11:19 AM CDT Billie EDUTSCH LAB - COAGULATION O RDERABLES Final Result Performing Organization Address [facility] de Phone Number [address] [address] * (ABNORMAL) CBC WITH DIFFERENTIAL (07/10/2025 11:17 AM CDT) White Blood Cell Count 5.8 3.8 - 10.8 Thousand/ uL [facility] RBC 2.81(L) 3.80 - 5.10 Million/u L [facility] Hemoglobin 9.8(L) 11.7 - 15.5 g/dL [facility] Hematocrit 30.3(L) 35.0 - 45.0 % [facility] MCV 107.8(H) 80.0 - 100.0 fL [facility] MCH 34.9(H) 27.0 - 33.0 pg [facility] MCHC 32.3 32.0 - 36.0 g/dL [facility] Comment: For adults, a slight decrease in the calculated MCHC value (in the range of 30 to 32 g/dL) is most likely not clinically significant; however, it should be interpreted with caution in correlation with other red cell parameters and the patient's clinical condition. RDW 13.1 11.0 - 15.0 % [facility] Platelet Count 96(L) 140 - 400 Thousand/ uL [facility] MPV 9.8 7.5 - 12.5 fL [facility] Neutrophil Absolute 3080 1500 - 7800 cells/uL [facility] Absolute Bands [facility] Metamyelocytes Absolute [facility] Myelocytes Absolute [facility] Absolute Prolymphocytes [facility] Lymphocytes Absolute 1676 850 - 3900 cells/uL [facility] Absolute Monocytes 592 200 - 950 cells/uL [facility] Eosinophils Absolute 383 15 - 500 cells/uL [facility] Basophils Absolute 70 0 - 200 cells/uL [facility] Absolute Blasts [facility] nRBC Absolute [facility] Granulocytes % 53.1 % [facility] Band Neutrophil [facility] Metamyelocytes [facility] Myelocytes [facility] Promyelocytes [facility] Lymphocytes % 28.9 % [facility] Lymphocyte Reactive [facility] Monocytes % 10.2 % [facility] Eosinophils % 6.6 % [facility] Basophils % 1.2 % [facility] Comment: Test Performed at: [facility] [address] MARGARITO CORONA MD Blasts [facility] nRBC [facility] Comments [facility] Comment: Test Performed at: [facility] [address] MARGARITO CORONA MD Blood BLOOD SPECIMEN / Unknown 07/10/2025 11:17 AM CDT 07/10/2025 11:19 AM CDT us Billie Carcamo SMALL OFFSET PRINTER-CELL BIOLOGIST LAB - HEMATOLOGY OR DERABLES Final Result [address] [address] * (ABNORMAL) COMPREHENSIVE METABOLIC PANEL (07/10/2025 11:17 AM CDT) Pathologist [facility] Glucose 86 65 - 99 mg/dL [facility] Comment: Fasting reference interval BUN 18 7 - 25 mg/dL [facility] Creatinine 1.58(H) 0.60 - 0.95 mg/dL [facility] eGFR by Cystatin C 32(L) > OR = 60 mL/min/1. 73m2 [facility] BUN/Creatinine Ratio 11 6 - 22 (calc) [facility] Sodium 134(L) 135 - 146 mmol/L [facility] Potassium 4.5 3.5 - 5.3 mmol/L [facility] Chloride 103 98 - 110 mmol/L [facility] CO2 24 20 - 32 mmol/L [facility] Calcium 8.5(L) 8.6 - 10.4 mg/dL [facility] Protein Total 6.4 6.1 - 8.1 g/dL [facility] Albumin 3.0(L) 3.6 - 5.1 g/dL [facility] Globulin Total 3.4 1.9 - 3.7 g/dL (calc) [facility] Albumin/Globulin Ratio 0.9(L) 1.0 - 2.5 (calc) [facility] Bilirubin Total 2.6(H) 0.2 - 1.2 mg/dL [facility] Alkaline Phosphatase 65 37 - 153 U/L [facility] AST 31 10 - 35 U/L [facility] ALT 14 6 - 29 U/L [facility] Comment: Test Performed at: [facility] [address] MARGARITO CORONA MD Blood BLOOD SPECIMEN / Unknown 07/10/2025 11:17 AM CDT 07/10/2025 11:19 AM CDT Billie Carcamo SMALL OFFSET PRINTER-CELL BIOLOGIST LAB - CHEMISTRY ORD ERABLES Final Result [address] [address] * (ABNORMAL) IRON + TIBC PANEL (07/10/2025 11:17 AM CDT) Iron 231(H) 45 - 160 mcg/dL [facility] TIBC 241(L) 250 - 450 mcg/dL (calc) [facility] % Saturation 96(H) 16 - 45 % (calc) [facility] Comment: Test Performed at: [facility] [place] [address] [address] MARGARITO CORONA MD Blood BLOOD SPECIMEN / Unknown 07/10/2025 11:17 AM CDT 07/10/2025 11:19 AM CDT Billie Carcamo SMALL OFFSET PRINTER-CELL BIOLOGIST LAB - CHEMISTRY ORD ERABLES Final Result Performing Organization Address [facility] Co de Phone Number [address] [address] * HEPATITIS B CORE ANTIBODY TOTAL (07/10/2025 11:17 AM CDT) [facility] Hepatitis B Core Virus Antibody Total NON-REACTI VE NON-REACT JESSICA [facility] Comment: For additional information, please refer to http://Scale Computing.Haul Zing./faq/DKH757 (This link is being provided for informational/ educational purposes only.) Test Performed at: [facility] [address] [place] [address] MARGARITO CORONA MD Blood BLOOD SPECIMEN / Unknown 07/10/2025 11:17 AM CDT 07/10/2025 11:19 AM CDT Billie Gilda Carcamo APRN-[employer] [facility] LAB - CHEMISTRY ORD ERABLES Final Result Performing Organization Address [facility] de Phone Number [facility] [address] [place] [address] * GGT (07/10/2025 11:17 AM CDT) [facility] GGT 59 3 - 65 U/L [facility] Comment: Test Performed at: [facility] [address] MARGARITO CORONA MD Blood BLOOD SPECIMEN / Unknown 07/10/2025 11:17 AM CDT 07/10/2025 11:19 AM CDT Billie Carcamo APRN-CELL BIOLOGIST LAB - CHEMISTRY ORD ERABLES Final Result Performing Organization Address [facility] Co de Phone Number [facility] [address] [place] [address] * (ABNORMAL) HEPATITIS A ANTIBODY (07/10/2025 11:17 AM CDT) [facility] Hepatitis A Virus Antibody Total REACTIVE(A ) NON-REACT JESSICA [facility] Comment: For additional information, please refer to http://Scale Computing.Haul Zing./faq/OON253 (This link is being provided for informational/ educational purposes only.) Test Performed at: [facility] [address] [place] [address] MARGARITO CORONA MD Blood BLOOD SPECIMEN / Unknown 07/10/2025 11:17 AM CDT 07/10/2025 11:19 AM CDT Billie Carcamo [facility] - CHEMISTRY ORD ERABLES Final Result Performing Organization Address [facility] [place] [address] * FERRITIN (07/10/2025 11:17 AM CDT) Ferritin 148 16 - 288 ng/mL [facility] Comment: REPORT COMMENT: INSURANCE VERIFIED FASTING:YES Test Performed at: [facility] [place] [address] MARGARITO CORONA MD Blood BLOOD SPECIMEN / Unknown 07/10/2025 11:17 AM CDT 07/10/2025 11:19 AM CDT Billie Carcamo [facility] - CHEMISTRY ORD ERABLES Final Result Performing Organization Address [facility] [place] [address] * Laceration Repair (06/28/2025 5:29 AM CDT) Narrative Diya Freedman MD - 06/28/2025 5:29 AM CDT Diya Freedman MD 08/03/2025 1:57 AM Laceration Repair Date/Time: 06/28/2025 5:29 AM Performed by: Linda Herrera MD Authorized by: Diya Freedman MD Consent: Consent obtained: Verbal Consent given by: Patient Risks, benefits, and alternatives were discussed: yes Risks discussed: Infection, pain, poor cosmetic result, poor wound healing and need for additional repair Alternatives discussed: No treatment [place] protocol: Procedure explained and questions answered to patient or proxy's satisfaction: yes Relevant documents present and verified: yes Test results available: yes Imaging studies available: yes Required blood products, implants, devices, and special equipment available: yes Site/side marked: yes Patient identity confirmed: Verbally with patient and arm band Anesthesia: Anesthesia method: Local infiltration Local anesthetic: Lidocaine 1% w/o epi Laceration details: Location: Face Face location: Nose Length (cm): 2.5 Depth (mm): 2 Pre-procedure details: Preparation: Imaging obtained to evaluate for foreign bodies and patient was prepped and draped in usual sterile fashion Exploration: Hemostasis achieved with: Direct pressure Imaging obtained comment: Ct Contaminated: no Treatment: Area cleansed with: Saline Amount of cleaning: Standard Irrigation solution: Sterile saline Irrigation method: Syringe Skin repair: Repair method: Sutures Suture size: 6-0 Wound skin closure material used: vicryl + Suture technique: Simple interrupted Number of sutures: 3 Approximation: Approximation: Close Repair type: Repair type: Simple Post-procedure details: Dressing: Antibiotic ointment Procedure completion: Tolerated well, no immediate complications Diya Freedman MD PROCEDURE/MINOR SURGICAL ORDERAB LES Final Result * CT CERVICAL SPINE WO CONTRAST (06/27/2025 3:11 PM CDT) Anatomical Region Laterality Modality Spine Computed Tomogra phy 06/27/2025 3:45 PM CDT Impressions 06/27/2025 5:25 PM CDT IMPRESSION: 1. Small area of hypoattenuation in the left middle frontal gyrus may represent volume averaging or age-indeterminate infarct, consider MRI if there is clinical concern. 2. No evidence of acute intracranial hemorrhage is identified. 3. Acute mildly comminuted left nasal bone fracture with overlaying the nasal soft tissue swelling/lacerations. 4. No evidence of acute fracture in the cervical spine. The report is dictated by Cecil Anna MD, (radiology therapist) These findings were discussed in detail with the patient's care provider, Dr. Medeiros by Dr. Anna via telephone at 4:07 PM on 06/27/2025 with readback comprehension and verification. > Dictated by Rougher Operator I, Narcisa Ruiz MD have personally reviewed and interpreted this examination/study. > Interpreting Provider: Narcisa Ruiz MD on 06/27/2025 5:25 PM Narrative 06/27/2025 5:25 PM CDT PROCEDURE: CT HEAD WO CONTRAST, CT FACIAL BONES WO CONTRAST, CT CERVICAL SPINE WO CONTRAST, DATE/TIME OF EXAM: 06/27/2025 3:12 PM, LOCATION [facility] INDICATION: W19.XXXA: Fall, initial encounter ADDITIONAL CLINICAL INFORMATION: Ordering Provider Reason For Exam: r/o ich vs other (accession [id number]), r/o fracture vs other (accession [id number]), r/o fracture vs other (accession [id number]) Technologist Note: None. Additional: None. EXAMINATION: 1. Computed tomography (CT) of the head without contrast 2. CT of the maxillofacial bones, orbits, and paranasal sinuses without contrast 3. CT of the cervical spine without contrast TECHNIQUE: CT of the head, cervical spine, and maxillofacial bones, orbits, and paranasal sinuses was performed without contrast according to standard protocol. COMPARISON: No prior study is available for comparison at the time of this dictation. FINDINGS: Head: No acute intracranial hemorrhage or intra- or extra-axial fluid collections are identified. There is mild cerebral volume loss with associated ex vacuo ventricular dilatation. The basal cisterns are patent. No mass effect or midline shift is seen. Small area of hypoattenuation in the left middle frontal gyrus (series 3 image 22) may represent age-indeterminate infarct. The wilkes-white matter differentiation otherwise appears normal. Periventricular white matter hypoattenuation is a nonspecific finding that may be indicative of chronic small vessel ischemic disease. There is atherosclerotic calcification of the carotid siphons. No acute calvarial fracture is identified. Maxillofacial: Mild soft tissue swelling of the nose. There is acute mildly comminuted left nasal bone fracture. Other than bilateral cataract extractions, the orbits including the globes, optic nerves, retrobulbar fat and extraocular muscles appear normal. There is mild paranasal sinus disease. The hard palate, mandible, and temporomandibular joints appear normal. There is mild opacification in the left mastoid air cells. The mastoid air cells are clear. Cervical spine: The alignment is normal. The prevertebral soft tissue is normal in thickness. The mineralization of the bones is normal. Vertebral bodies are normal in height without evidence of acute fracture. The craniocervical junction is normal. There is mild to moderate multilevel degenerative disc disease. The central canal is patent. 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 There are varying degrees of mild to moderate multilevel uncovertebral joint osteoarthritis with the same degree of neural foraminal stenosis at these levels. No soft tissue abnormality is identified. Brain injury guidelines: Skull fracture: No Subdural hematoma: No subdural hematoma. Epidural hematoma: No epidural hematoma. Intraparenchymal hemorrhage: No intraparenchymal hemorrhage. Subdural hemorrhage: No subarachnoid hemorrhage. Intraventricular hemorrhage: No. Midline shift: No. Procedure Note Narcisa Ruiz MD - 06/27/2025 PROCEDURE: CT HEAD WO CONTRAST, CT FACIAL BONES WO CONTRAST, CTCERVICAL SPINE WO CONTRAST, DATE/TIME OF EXAM: 06/27/2025 3:12 PM, LOCATION [facility] INDICATION: W19.XXXA: Fall, initial encounter ADDITIONAL CLINICAL INFORMATION: Ordering Provider Reason For Exam: r/o ich vs other ([id number]), r/o fracture vs other (accession [id number]), r/o fracture vs other (accession [id number]) Technologist Note: None. Additional: None. EXAMINATION: 1. Computed tomography (CT) of the head without contrast 2. CT of the maxillofacial bones, orbits, and paranasal sinuses without contrast 3. CT of the cervical spine without contrast TECHNIQUE: CT of the head, cervical spine, and maxillofacial bones,orbits, and paranasal sinuses was performed without contrast according tostandard protocol. COMPARISON: No prior study is available for comparison at the time ofthis dictation. FINDINGS: Head: No acute intracranial hemorrhage or intra- or extra-axial fluidcollections are identified. There is mild cerebral volume loss with associated exvacuo ventricular dilatation. The basal cisterns are patent. No mass effect or midline shift is seen. Small area of hypoattenuation in the left middle frontal gyrus (series 3 image 22) may represent age-indeterminateinfarct. The wilkes-white matter differentiation otherwise appears normal. Periventricular white matter hypoattenuation is a nonspecific findingthat may be indicative of chronic small vessel ischemic disease. There is atherosclerotic calcification of the carotid siphons. No acute calvarial fracture is identified. Maxillofacial: Mild soft tissue swelling of the nose. There is acute mildly comminuted left nasal bone fracture. Other than bilateral cataract extractions, the orbits including theglobes, optic nerves, retrobulbar fat and extraocular muscles appear normal.There is mild paranasal sinus disease. The hard palate, mandible, and temporomandibular joints appear normal. There is mild opacification inthe left mastoid air cells. The mastoid air cells are clear. Cervical spine: The alignment is normal. The prevertebral soft tissue is normal in thickness. The mineralization of the bones is normal. Vertebral bodiesare normal in height without evidence of acute fracture. The craniocervical junction is normal. There is mild to moderate multilevel degenerativedisc disease. The central canal is patent. 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 There are varying degrees ofmild to moderate multilevel uncovertebral joint osteoarthritis with the same degree of neural foraminal stenosis at these levels. No soft tissue abnormality is identified. Brain injury guidelines: Skull fracture: No Subdural hematoma: No subdural hematoma. Epidural hematoma: No epidural hematoma. Intraparenchymal hemorrhage: No intraparenchymal hemorrhage. Subdural hemorrhage: No subarachnoid hemorrhage. Intraventricular hemorrhage: No. Midline shift: No. IMPRESSION: 1. Small area of hypoattenuation in the left middle frontal gyrus may represent volume averaging or age-indeterminate infarct, consider MRI if there is clinical concern. 2. No evidence of acute intracranial hemorrhage is identified. 3. Acute mildly comminuted left nasal bone fracture with overlaying the nasal soft tissue swelling/lacerations. 4. No evidence of acute fracture in the cervical spine. The report is dictated by Cecil Anna MD, (radiology therapist) These findings were discussed in detail with the patient's careprovider, Dr. Medeiros by Dr. Anna via telephone at 4:07 PM on 06/27/2025 with readback comprehension and verification. > Dictated by Rougher Operator I, Narcisa Ruiz MD have personally reviewed and interpretedthis examination/study. > Interpreting Provider: Narcisa Ruiz MD on 06/27/2025 5:25 PM us Marjorie Eid PA-C CT ORDERABLES Final Result * CT Facial Bones Wo Contrast (06/27/2025 3:11 PM CDT) Anatomical Region Laterality Modality Head Computed Tomogra phy 06/27/2025 3:45 PM CDT Impressions 06/27/2025 5:25 PM CDT IMPRESSION: 1. Small area of hypoattenuation in the left middle frontal gyrus may represent volume averaging or age-indeterminate infarct, consider MRI if there is clinical concern. 2. No evidence of acute intracranial hemorrhage is identified. 3. Acute mildly comminuted left nasal bone fracture with overlaying the nasal soft tissue swelling/lacerations. 4. No evidence of acute fracture in the cervical spine. The report is dictated by Cecil Anna MD, (radiology therapist) These findings were discussed in detail with the patient's care provider, Dr. Medeiros by Dr. Anna via telephone at 4:07 PM on 06/27/2025 with readback comprehension and verification. > Dictated by Rougher Operator I, Narcisa Ruiz MD have personally reviewed and interpreted this examination/study. > Interpreting Provider: Narcisa Ruiz MD on 06/27/2025 5:25 PM Narrative 06/27/2025 5:25 PM CDT PROCEDURE: CT HEAD WO CONTRAST, CT FACIAL BONES WO CONTRAST, CT CERVICAL SPINE WO CONTRAST, DATE/TIME OF EXAM: 06/27/2025 3:12 PM, LOCATION [facility] INDICATION: W19.XXXA: Fall, initial encounter ADDITIONAL CLINICAL INFORMATION: Ordering Provider Reason For Exam: r/o ich vs other (accession [id number]), r/o fracture vs other (accession [id number]), r/o fracture vs other (accession [id number]) Technologist Note: None. Additional: None. EXAMINATION: 1. Computed tomography (CT) of the head without contrast 2. CT of the maxillofacial bones, orbits, and paranasal sinuses without contrast 3. CT of the cervical spine without contrast TECHNIQUE: CT of the head, cervical spine, and maxillofacial bones, orbits, and paranasal sinuses was performed without contrast according to standard protocol. COMPARISON: No prior study is available for comparison at the time of this dictation. FINDINGS: Head: No acute intracranial hemorrhage or intra- or extra-axial fluid collections are identified. There is mild cerebral volume loss with associated ex vacuo ventricular dilatation. The basal cisterns are patent. No mass effect or midline shift is seen. Small area of hypoattenuation in the left middle frontal gyrus (series 3 image 22) may represent age-indeterminate infarct. The wilkes-white matter differentiation otherwise appears normal. Periventricular white matter hypoattenuation is a nonspecific finding that may be indicative of chronic small vessel ischemic disease. There is atherosclerotic calcification of the carotid siphons. No acute calvarial fracture is identified. Maxillofacial: Mild soft tissue swelling of the nose. There is acute mildly comminuted left nasal bone fracture. Other than bilateral cataract extractions, the orbits including the globes, optic nerves, retrobulbar fat and extraocular muscles appear normal. There is mild paranasal sinus disease. The hard palate, mandible, and temporomandibular joints appear normal. There is mild opacification in the left mastoid air cells. The mastoid air cells are clear. Cervical spine: The alignment is normal. The prevertebral soft tissue is normal in thickness. The mineralization of the bones is normal. Vertebral bodies are normal in height without evidence of acute fracture. The craniocervical junction is normal. There is mild to moderate multilevel degenerative disc disease. The central canal is patent. 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 There are varying degrees of mild to moderate multilevel uncovertebral joint osteoarthritis with the same degree of neural foraminal stenosis at these levels. No soft tissue abnormality is identified. Brain injury guidelines: Skull fracture: No Subdural hematoma: No subdural hematoma. Epidural hematoma: No epidural hematoma. Intraparenchymal hemorrhage: No intraparenchymal hemorrhage. Subdural hemorrhage: No subarachnoid hemorrhage. Intraventricular hemorrhage: No. Midline shift: No. Procedure Note Narcisa Ruiz MD - 06/27/2025 PROCEDURE: CT HEAD WO CONTRAST, CT FACIAL BONES WO CONTRAST, CTCERVICAL SPINE WO CONTRAST, DATE/TIME OF EXAM: 06/27/2025 3:12 PM, LOCATION [facility] INDICATION: W19.XXXA: Fall, initial encounter ADDITIONAL CLINICAL INFORMATION: Ordering Provider Reason For Exam: r/o ich vs other ([id number]), r/o fracture vs other (accession [id number]), r/o fracture vs other (accession [id number]) Technologist Note: None. Additional: None. EXAMINATION: 1. Computed tomography (CT) of the head without contrast 2. CT of the maxillofacial bones, orbits, and paranasal sinuses without contrast 3. CT of the cervical spine without contrast TECHNIQUE: CT of the head, cervical spine, and maxillofacial bones,orbits, and paranasal sinuses was performed without contrast according tostandard protocol. COMPARISON: No prior study is available for comparison at the time ofthis dictation. FINDINGS: Head: No acute intracranial hemorrhage or intra- or extra-axial fluidcollections are identified. There is mild cerebral volume loss with associated exvacuo ventricular dilatation. The basal cisterns are patent. No mass effect or midline shift is seen. Small area of hypoattenuation in the left middle frontal gyrus (series 3 image 22) may represent age-indeterminateinfarct. The wilkes-white matter differentiation otherwise appears normal. Periventricular white matter hypoattenuation is a nonspecific findingthat may be indicative of chronic small vessel ischemic disease. There is atherosclerotic calcification of the carotid siphons. No acute calvarial fracture is identified. Maxillofacial: Mild soft tissue swelling of the nose. There is acute mildly comminuted left nasal bone fracture. Other than bilateral cataract extractions, the orbits including theglobes, optic nerves, retrobulbar fat and extraocular muscles appear normal.There is mild paranasal sinus disease. The hard palate, mandible, and temporomandibular joints appear normal. There is mild opacification inthe left mastoid air cells. The mastoid air cells are clear. Cervical spine: The alignment is normal. The prevertebral soft tissue is normal in thickness. The mineralization of the bones is normal. Vertebral bodiesare normal in height without evidence of acute fracture. The craniocervical junction is normal. There is mild to moderate multilevel degenerativedisc disease. The central canal is patent. 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 There are varying degrees ofmild to moderate multilevel uncovertebral joint osteoarthritis with the same degree of neural foraminal stenosis at these levels. No soft tissue abnormality is identified. Brain injury guidelines: Skull fracture: No Subdural hematoma: No subdural hematoma. Epidural hematoma: No epidural hematoma. Intraparenchymal hemorrhage: No intraparenchymal hemorrhage. Subdural hemorrhage: No subarachnoid hemorrhage. Intraventricular hemorrhage: No. Midline shift: No. IMPRESSION: 1. Small area of hypoattenuation in the left middle frontal gyrus may represent volume averaging or age-indeterminate infarct, consider MRI if there is clinical concern. 2. No evidence of acute intracranial hemorrhage is identified. 3. Acute mildly comminuted left nasal bone fracture with overlaying the nasal soft tissue swelling/lacerations. 4. No evidence of acute fracture in the cervical spine. The report is dictated by Cecil Anna MD, (radiology therapist) These findings were discussed in detail with the patient's careprovider, Dr. Medeiros by Dr. Anna via telephone at 4:07 PM on 06/27/2025 with readback comprehension and verification. > Dictated by Rougher Operator I, Narcisa Ruiz MD have personally reviewed and interpretedthis examination/study. > Interpreting Provider: Narcisa Ruiz MD on 06/27/2025 5:25 PM Marjorie Eid PA-C CT ORDERABLES Final Result * CT HEAD WO CONTRAST (06/27/2025 3:11 PM CDT) Anatomical Region Laterality Modality Head Computed Tomogra phy 06/27/2025 3:45 PM CDT Impressions 06/27/2025 5:25 PM CDT IMPRESSION: 1. Small area of hypoattenuation in the left middle frontal gyrus may represent volume averaging or age-indeterminate infarct, consider MRI if there is clinical concern. 2. No evidence of acute intracranial hemorrhage is identified. 3. Acute mildly comminuted left nasal bone fracture with overlaying the nasal soft tissue swelling/lacerations. 4. No evidence of acute fracture in the cervical spine. The report is dictated by Cecil Anna MD, (radiology therapist) These findings were discussed in detail with the patient's care provider, Dr. Medeiros by Dr. Anna via telephone at 4:07 PM on 06/27/2025 with readback comprehension and verification. > Dictated by Rougher Operator I, Narcisa Ruiz MD have personally reviewed and interpreted this examination/study. > Interpreting Provider: Narcisa Ruiz MD on 06/27/2025 5:25 PM Narrative 06/27/2025 5:25 PM CDT PROCEDURE: CT HEAD WO CONTRAST, CT FACIAL BONES WO CONTRAST, CT CERVICAL SPINE WO CONTRAST, DATE/TIME OF EXAM: 06/27/2025 3:12 PM, LOCATION [facility] INDICATION: W19.XXXA: Fall, initial encounter ADDITIONAL CLINICAL INFORMATION: Ordering Provider Reason For Exam: r/o ich vs other (accession [id number]), r/o fracture vs other (accession [id number]), r/o fracture vs other (accession [id number]) Technologist Note: None. Additional: None. EXAMINATION: 1. Computed tomography (CT) of the head without contrast 2. CT of the maxillofacial bones, orbits, and paranasal sinuses without contrast 3. CT of the cervical spine without contrast TECHNIQUE: CT of the head, cervical spine, and maxillofacial bones, orbits, and paranasal sinuses was performed without contrast according to standard protocol. COMPARISON: No prior study is available for comparison at the time of this dictation. FINDINGS: Head: No acute intracranial hemorrhage or intra- or extra-axial fluid collections are identified. There is mild cerebral volume loss with associated ex vacuo ventricular dilatation. The basal cisterns are patent. No mass effect or midline shift is seen. Small area of hypoattenuation in the left middle frontal gyrus (series 3 image 22) may represent age-indeterminate infarct. The wilkes-white matter differentiation otherwise appears normal. Periventricular white matter hypoattenuation is a nonspecific finding that may be indicative of chronic small vessel ischemic disease. There is atherosclerotic calcification of the carotid siphons. No acute calvarial fracture is identified. Maxillofacial: Mild soft tissue swelling of the nose. There is acute mildly comminuted left nasal bone fracture. Other than bilateral cataract extractions, the orbits including the globes, optic nerves, retrobulbar fat and extraocular muscles appear normal. There is mild paranasal sinus disease. The hard palate, mandible, and temporomandibular joints appear normal. There is mild opacification in the left mastoid air cells. The mastoid air cells are clear. Cervical spine: The alignment is normal. The prevertebral soft tissue is normal in thickness. The mineralization of the bones is normal. Vertebral bodies are normal in height without evidence of acute fracture. The craniocervical junction is normal. There is mild to moderate multilevel degenerative disc disease. The central canal is patent. 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 There are varying degrees of mild to moderate multilevel uncovertebral joint osteoarthritis with the same degree of neural foraminal stenosis at these levels. No soft tissue abnormality is identified. Brain injury guidelines: Skull fracture: No Subdural hematoma: No subdural hematoma. Epidural hematoma: No epidural hematoma. Intraparenchymal hemorrhage: No intraparenchymal hemorrhage. Subdural hemorrhage: No subarachnoid hemorrhage. Intraventricular hemorrhage: No. Midline shift: No. Procedure Note Narcisa Ruiz MD - 06/27/2025 PROCEDURE: CT HEAD WO CONTRAST, CT FACIAL BONES WO CONTRAST, CTCERVICAL SPINE WO CONTRAST, DATE/TIME OF EXAM: 06/27/2025 3:12 PM, LOCATION [facility] INDICATION: W19.XXXA: Fall, initial encounter ADDITIONAL CLINICAL INFORMATION: Ordering Provider Reason For Exam: r/o ich vs other ([id number]), r/o fracture vs other (accession [id number]), r/o fracture vs other (accession [id number]) Technologist Note: None. Additional: None. EXAMINATION: 1. Computed tomography (CT) of the head without contrast 2. CT of the maxillofacial bones, orbits, and paranasal sinuses without contrast 3. CT of the cervical spine without contrast TECHNIQUE: CT of the head, cervical spine, and maxillofacial bones,orbits, and paranasal sinuses was performed without contrast according tostandard protocol. COMPARISON: No prior study is available for comparison at the time ofthis dictation. FINDINGS: Head: No acute intracranial hemorrhage or intra- or extra-axial fluidcollections are identified. There is mild cerebral volume loss with associated exvacuo ventricular dilatation. The basal cisterns are patent. No mass effect or midline shift is seen. Small area of hypoattenuation in the left middle frontal gyrus (series 3 image 22) may represent age-indeterminateinfarct. The wilkes-white matter differentiation otherwise appears normal. Periventricular white matter hypoattenuation is a nonspecific findingthat may be indicative of chronic small vessel ischemic disease. There is atherosclerotic calcification of the carotid siphons. No acute calvarial fracture is identified. Maxillofacial: Mild soft tissue swelling of the nose. There is acute mildly comminuted left nasal bone fracture. Other than bilateral cataract extractions, the orbits including theglobes, optic nerves, retrobulbar fat and extraocular muscles appear normal.There is mild paranasal sinus disease. The hard palate, mandible, and temporomandibular joints appear normal. There is mild opacification inthe left mastoid air cells. The mastoid air cells are clear. Cervical spine: The alignment is normal. The prevertebral soft tissue is normal in thickness. The mineralization of the bones is normal. Vertebral bodiesare normal in height without evidence of acute fracture. The craniocervical junction is normal. There is mild to moderate multilevel degenerativedisc disease. The central canal is patent. 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 There are varying degrees ofmild to moderate multilevel uncovertebral joint osteoarthritis with the same degree of neural foraminal stenosis at these levels. No soft tissue abnormality is identified. Brain injury guidelines: Skull fracture: No Subdural hematoma: No subdural hematoma. Epidural hematoma: No epidural hematoma. Intraparenchymal hemorrhage: No intraparenchymal hemorrhage. Subdural hemorrhage: No subarachnoid hemorrhage. Intraventricular hemorrhage: No. Midline shift: No. IMPRESSION: 1. Small area of hypoattenuation in the left middle frontal gyrus may represent volume averaging or age-indeterminate infarct, consider MRI if there is clinical concern. 2. No evidence of acute intracranial hemorrhage is identified. 3. Acute mildly comminuted left nasal bone fracture with overlaying the nasal soft tissue swelling/lacerations. 4. No evidence of acute fracture in the cervical spine. The report is dictated by Cecil Anna MD, (radiology therapist) These findings were discussed in detail with the patient's careprovider, Dr. Medeiros by Dr. Anna via telephone at 4:07 PM on 06/27/2025 with readback comprehension and verification. > Dictated by Rougher Operator I, Narcisa Ruiz MD have personally reviewed and interpretedthis examination/study. > Interpreting Provider: Narcisa Ruiz MD on 06/27/2025 5:25 PM us Marjorie Eid PA-C CT ORDERABLES Final Result * XR KNEE LEFT 3VW (06/27/2025 2:48 PM CDT) Anatomical Region Laterality Modality Lower Extremity Digital Radiogra phy 06/27/2025 3:06 PM CDT Impressions 06/27/2025 3:07 PM CDT IMPRESSION: No evidence of fracture, malalignment nor prosthetic loosening.. > Interpreting Provider: Shaan Licea MD on 06/27/2025 3:07 PM Narrative 06/27/2025 3:07 PM CDT PROCEDURE: XR KNEE LEFT 3VW COMPARISON: No relevant available comparison. CLINICAL INFORMATION (none relevant/not provided if blank): Indication: W19.XXXA: Fall, initial encounter Additional History: FINDINGS: AP, tunnel, and lateral views of the left knee were obtained and shows no evidence of fracture, malalignment nor loosening of the left knee arthroplasty device. The component parts appear well aligned and positioned. Suspect a minimal joint effusion. Small spur seen at the anterior superior aspect of the patella. Procedure Note Shaan Licea MD - 06/27/2025 PROCEDURE: XR KNEE LEFT 3VW COMPARISON: No relevant available comparison. CLINICAL INFORMATION (none relevant/not provided if blank): Indication: W19.XXXA: Fall, initial encounter Additional History: FINDINGS: AP, tunnel, and lateral views of the left knee were obtained and showsno evidence of fracture, malalignment nor loosening of the left knee arthroplasty device. The component parts appear well aligned and positioned. Suspect a minimal joint effusion. Small spur seen at the anterior superior aspect of the patella. IMPRESSION: No evidence of fracture, malalignment nor prosthetic loosening.. > Interpreting Provider: Shaan Licea MD on 06/27/2025 3:07 PM Marjorie Eid PA-C DIAGNOSTIC IMAGING ORDERABLES Final Result from Last 3 Months Insurance [facility] MANAGED MEDICARE ADV Member Subscriber Plan / Payer (Ef fective 2024-Present) Name:Janine Kahn Member ID:Not on file Relation to Subscriber:Self Name:FemiJanine brito Magdy Payer ID:[id number] (NAIC) Type:Medicare-Managed Care Address: [place] [id number] Care Teams Central Office Operator Relationship Specialty Start Date End Date Higinio Ocampo MD PCP - General 03/11/19
--- OUTSIDE RECORDS SUMMARY | 2025-09-19 10:46 | XMS_ITS | Data Portability ---
Author Organization [facility], Main Office Address [address] [place] [address] Care Team Providers Care Key Punch Operator Name Role Phone HIGINIO OCAMPO Primary Care Provider HIGINIO OCAMPO Referring Provider Assessment Encounter Date Assessment Date Assessment LastModified by Organization Details LastModified Time 06/17/2023 06/17/2023 Continue current therapy she will follow-up in 6 month [email or web address] Not available 06/18/2023 08:36:40 12/16/2023 12/16/2023 GERD conservative measures as well as famotidine Supplement vitamin-D [id number] r Hypertension continue current therapy Blood pressure check in a week she has been taking Benadryl sinus which may be bring her blood pressure up Regular clinic visit 4-6 [email or web address] Not available 12/26/2023 15:51:17 Plan of Treatment Reminders Order Date Submit Date Provider Last Modified By Organization Details Last Modified Time Details Appointments None recorded. Lab CMP, serum or plasma 2023 024 [email or web address] [facility] (Lab), [address] [place], [address], 4 09:10:45 lipid panel, serum 2023 024 [email or web address] [facility] (Lab), [address] [place], [address], 4 09:10:45 CMP, serum or plasma 2022 023 MICHAEL [facility] (Lab), [address] [place], [address], 4 09:41:14 lipid panel, serum [address] [facility] [address] [place], [address], 4 09:41:[address] referral 2023 024 [email or web address] [facility], [address] [place], [address], 4 12:30:09 Procedures None recorded. Surgeries None recorded. Imaging None recorded. Medication Orders None recorded. Patient TargetsNo targets recorded. Patient InstructionsNo instructions recorded. Reason for Referral Dj Instructor Referral for S kin lesion Referring Physician: Higinio Ocampo, Internal Medicine, Encounter Date: 12/16/2023 Results Created Date Observation Date Name Description Value Unit Range Abnormal Flag Note LastModifiedBy Organization Detail LastModifiedTime 10/09/20 22 XR, knee No observ ation record ed. [id number] [place] [address] [facility], [place], [address], 01/28/2023 00:53:59 Result Notes None recorded. Problems Name Problem SNOMED Code Status Onset Date Resolution Date Notes Provider Name and Address Organization Details Recorded Time Gastroesophag eal reflux disease 903961196 Active Not Available [facility] 3 00:46:04 Neuropathy 390452112 Active Not Available [facility] 3 00:46:04 Hypertensive disorder 89131554 Active 2016 Not Available [facility] 3 00:46:04 Vitamin D deficiency 52995094 Active 2020 Not Available [facility] 3 00:46:04 Skin lesion 64681385 Active 2023 NEHEMIAS Thompson, [place] - [facility] 4 15:24:43 Problem Notes None recorded. Procedures Surgical History Date Name Laterality Status Provider Name and Address Organization Details Recorded Time Knee Surgery completed [facility]:25 Cataract Surgery completed NEHEMIAS Gomez [place] - [facility] 06/17/2023 14:35:09 Imaging Results None recorded. Procedure Notes None recorded. Medical Equipment None Reported. Allergies Allergen ID Allergen Name Allergen Category Reaction Reaction Severity Criticality Documentation Date Start Date Code Code System Note Provider Name and Address Organization Details Recorded Time 485 codeine medicatio n vomiting Not available Not available 01/28/2023 2670 RxNorm Not Available [facility] 3 00:53:14 Medications Name Sig Start Date Stop [...] administe red by the provider 07/16 completed ND: 0003-0 494-20 Not Available Not Available Not [...] administe red by the provider 07/16 completed [facility]: 0409-4 276-17 Not Available Not Available Not Available GaviLyte-N 420 gram oral solution 07/19 completed Not Available Not Available Not Available Eliquis 2.5 mg tablet Take 1 tablet twice a day by oral route. 11/14 completed Not Available Not Available Not Available Fluzone High-Dose 2014- (PF) 180 mcg/0.5 mL intramuscu lar syringe 01/21 completed Not Available Not Available Not Available Fluzone High-Dose 5243-0532 (PF) 180 mcg/0.5 mL intramuscu lar syringe 09/28 completed Not Available Not Available Not Available Fluzone High-Dose 9368-5494 (PF) 180 mcg/0.5 mL intramuscu lar syringe 01/26 completed Not Available Not Available Not Available Fluad 2019-20 65yr up(PF)45 mcg(15 mcgx3)/0.5 mL intramuscu lar syringe 01/16 completed Not Available Not Available Not Available Vitals Date Recorded Body mass index (BMI) Body height Heart rate Body temperature Body weight Systolic And Diastolic Provider Name and Address Organization Details Last Updated DateTime 3 34.4 kg/m2 152.4 cm 67 /min 97 [degF] 50282.2 6 g 122/70 mm[Hg] Not Available [facility] 3 00:42:15 Date Recorded Body height Body temperature Heart rate Respiratory rate Oxygen saturation Oxygen saturation in Arterial blood by Pulse oximetry Pain severity - 0-10 verbal numeric rating [Score] - Reported Systolic And Diastolic Provider Name and Address Organization Details Last Updated DateTime 4 152.4 cm 97.2 [degF] 68 /min 20 /min 99 % 99 % 0 170/70 mm[Hg] Cecilia Vences RN [facility] 4 14:35:19 Date Recorded Body mass index (BMI) Body height Heart rate Body temperature Body weight Systolic And Diastolic Provider Name and Address Organization Details Last Updated DateTime 2 34.6 kg/m2 152.4 cm 60 /min 97.7 [degF] 01964.8 5 g 130/80 mm[Hg] Not Available [facility] 3 00:42:15 Date Recorded Body height Body mass index (BMI) Body weight Body temperature Heart rate Systolic And Diastolic Provider Name and Address Organization Details Last Updated DateTime 3 152.4 cm 35 kg/m2 46238.0 3 g 97.5 [degF] 66 /min 132/84 mm[Hg] NEHEMIAS Gomez [place] [employer] [facility] 3 14:38:14 Date Recorded Body mass index (BMI) Body height Body weight Provider Name and Address Organization Details Last Updated DateTime 10/09/2022 34.8 kg/m2 152.4 cm 70495.44 g Not Available [facility] 01/28/2023 00:42:22 Social History Question Answer Notes LastModified by Organizat ion Details LastModified Time Tobacco Smoking Status Never Smoker Not Available [facility] 01/28/2023 00:40:24 Do You Have An Advance Directive? Yes MIGRATION.30454 81835 Information not available 01/28/2023 Do You Wear A Helmet When Biking? Yes MIGRATION.68170 28501 Information not available 01/28/2023 Are You Blind Or Do You Have Difficulty Seeing? No MIGRATION.88455 99003 Information not available 01/28/2023 What Is Your Level Of Caffeine Consumption? Occasional MIGRATION.25608 24145 Information not available 01/28/2023 What Is Your Code Status? DNR MIGRATION.16347 51496 Information not available 01/28/2023 In The 14 Days Before Symptom Onset, Have You Had Close Contact With A Laboratory-confir med COVID-19 While That Case Was Ill? No MIGRATION.14665 61819 Information not available 01/28/2023 In The 14 Days Before Symptom Onset, Have You Had Close Contact With A Person Who Is Under Investigation For COVID-19 While That Person Was Ill? No MIGRATION.23032 23615 Information not available 01/28/2023 Are You Deaf Or Do You Have Serious Difficulty Hearing? No MIGRATION.10210 35629 Information not available 01/28/2023 What Type Of Diet Are You Following? REGULAR MIGRATION.39393 45501 Information not available 01/28/2023 What Is The Highest Grade Or Level Of School You Have Completed Or The Highest Degree You Have Received? [id number] MIGRATION.22322 05443 Information not available 01/28/2023 Have There Been Any Changes To Your Family Or Social Situation? No MIGRATION.88984 71808 Information not available 01/28/2023 What Is The Fluoride Status Of Your Home? Unknown MIGRATION.00877 98301 Information not available 01/28/2023 Do You Use Insect Repellent Routinely? Yes MIGRATION.87005 03860 Information not available 01/28/2023 Where Do You Live? [place] MIGRATION.00264 10544 Information not available 01/28/2023 Do You Have A Medical Power Of [place]? Yes MIGRATION.85450 70332 Information not available 01/28/2023 What Was The Date Of Your Most Recent Tobacco Screening? 06/17/2023 Information not available 06/17/2023 Do You Have Any Pets? No MIGRATION.71386 50497 Information not available 01/28/2023 What Is Your Relationship Status? MIGRATION.64961 88602 Information not available 01/28/2023 Do You Use Your Seat Belt Or Car Seat Routinely? Yes MIGRATION.09896 40203 Information not available 01/28/2023 Do You Have Smoke And Carbon Monoxide Detectors In Your Home? Yes MIGRATION.79916 14321 Information not available 01/28/2023 Are You Passively Exposed To Smoke? No MIGRATION.24130 81155 Information not available 01/28/2023 Are There Any Smokers In Your House? No MIGRATION.38367 53793 Information not available 01/28/2023 Do You Participate In Social Media? No MIGRATION.23724 83188 Information not available 01/28/2023 Do You Use Sunscreen Routinely? No MIGRATION.05494 83269 Information not available 01/28/2023 Has Tobacco Cessation Counseling Been Provided? No MIGRATION.32488 09905 Information not available 01/28/2023 Have You Recently Traveled Abroad? No MIGRATION.33461 41234 Information not available 01/28/2023 Do You Have Difficulty Walking Or Climbing Stairs? No MIGRATION.39634 32728 Information not available 01/28/2023 Are You Currently In School? No MIGRATION.94926 35039 Information not available 01/28/2023 Do You Have Any Dietary Restrictions? No MIGRATION.00577 88784 Information not available 01/28/2023 Sex: Unknown Functional Status Question Answer Note LastModified by Organizat ion Details LastModified Time Do you use any illicit or recreational drugs? No MIGRATION.9017240 026 Information not available 01/28/2023 What is your level of alcohol consumption? None MIGRATION.4650758 026 Information not available 01/28/2023 Are you able to walk independently without assistance or assistive devices? YESWOREST MIGRATION.5275389 026 Information not available 01/28/2023 Do you have difficulty doing errands alone? No MIGRATION.9265839 026 Information not available 01/28/2023 Are you able to care for yourself independently? Yes MIGRATION.3162285 026 Information not available 01/28/2023 Do you have difficulty dressing, bathing, grooming, or toileting? No MIGRATION.3855683 026 Information not available 01/28/2023 What is your exercise level? Occasional MIGRATION.2480205 026 Information not available 01/28/2023 Mental Status Question Answer Note LastModified by Organizat ion Details LastModified Time Do you feel stressed (tense, restless, nervous, or anxious, or unable to sleep at night)? [id number] MIGRATION.15326611 26 Information not available 01/28/2023 Do you have difficulty concentrating, remembering or making decisions? No MIGRATION.32662772 26 Information not available 01/28/2023 Family History Relationship Description Onset Age of this Age Resolved Age Notes LastModified by Organization Details LastModified Time Mother Hypertensive disorder MIGRATION.240 [id number] Not available 01/28/2023 00:41:27 Brother Hypertensive disorder MIGRATION.938 [id number] Not available 01/28/2023 00:41:27 Unspecified Relation Blood coagulation disorder MIGRATION.714 [id number] Not available 01/28/2023 00:41:27 Medical History Condition Response BLINDNESS N KIDNEY STONES N MRSA N CARPAL TUNNEL SYNDROME N LUNG DISEASE/DISORDER N HISTORY OF DRUG ABUSE N COPD N RADIATION / CHEMOTHERAPY N SPORTS INJURY N ANKLE PAIN N BLOOD DISEASES N SCHIZOPHRENIA N SHINGLES N SHOULDER PAIN N DEPRESSION (INCLUDING POST ) N BOWEL PROBLEMS N STROKE/TIA N ULCERS N KNEE PAIN [...] FOOT PROBLEM N HEART VALVE DISORDERS N SOFT TISSUE INJURY N ALLERGIES/HAYFEVER N INFECTIOUS DISEASE N HEART ARRHYTHMIA N INSOMNIA N RHEUMATOID ARTHRITIS N HIGH CHOLESTEROL / HYPERLIPIDEMIA N EDEMA N CHRONIC PAIN SYNDROME N CAROTID BLOCKAGE N BACK / NECK PROBLEMS N HAVE YOU BEEN HOSPITALIZED OR SEEN IN [facility] IN THE PAST YEAR ? N BURSITIS N HERNIATED DISC N DIALYSIS N FIBROMYALGIA N OSTEOPOROSIS N ARTHRITIS Y NO SIGNIFICANT PAST MEDICAL HISTORY N PERIPHERAL NEUROPATHY N DIABETES, TYPE N HEARTBURN / REFLUX N HEPATITIS / LIVER DISEASE N GOUT N SLEEP DISORDER N ALZHEIMER'S DISEASE N HERPES N SEIZURES/EPILEPSY N HEADACHES/MIGRAINES N VASCULAR DISEASE N HIP PAIN N Blood Disorder N DIZZINESS N HEAD TRAUMA OR INJURY N HEART DISEASE/HEART PROBLEMS N MULTIPLE SCLEROSIS N CARDIAC ARRHYTHMIA N CANCER: SPECIFY N ANESTHESIA COMPLICATIONS N ATRIAL FIBRILLATION N AUTOIMMUNE DISEASE N Gynecological HistoryNo gynecological history recorded. Obstetrics History GPAL:G 2 P 0 0 0 2 Type Value Living 2 Total 2 Immunizations Vaccine Type Date Status Note Provider Nam e and Address Organization Details Recorded Time COVID-19, mRNA, LNP-S, bivalent, PF, 50 mcg/0.5 mL or 25mcg/0.25 mL dose 2 completed MELANIE Eddy, [facility] 12/16/2023 14:28:30 COVID-19, mRNA, LNP-S, bivalent, PF, 50 mcg/0.5 mL or 25mcg/0.25 mL dose 2 completed Cecilia Vences RN null, [facility] 12/16/2023 14:28:30 influenza, unspecified formulation 8 completed Not Available [facility] 01/28/2023 00:53:04 Influenza, high-dose, trivalent, PF 7 completed MELANIE Eddy, [facility] 12/16/2023 14:28:30 COVID-19, mRNA, LNP-S, PF, 100 mcg/0.5mL dose or 50 mcg/0.25mL dose 1 completed Cecilia Vences RN null, [facility] 12/16/2023 14:28:30 COVID-19, mRNA, LNP-S, PF, 100 mcg/0.5mL dose or 50 mcg/0.25mL dose 1 completed MELANIE Eddy, [facility] 12/16/2023 14:28:30 Influenza, high-dose, quadrivalent, PF 1 completed Not Available [facility] 01/28/2023 00:53:04 Influenza, split virus, quadrivalent, PF 6 completed Not Available [facility] 01/28/2023 00:53:05 Past Encounters Encounter ID Performer Location Encounter Start Date Encounter Closed Date Diagnosis/Indication Diagnosis SNOMED-CT Code Diagnosis ICD10 Code Diagnosis IMO Codes Diagnosis Note [id number] Luís Lucas MD [address] [address] 02/21/2021 00:00:00 02/21/2021 09:43:49 [id number] Luís Lucas MD [facility]_[address] [address] 05/16/2021 00:00:00 05/24/2021 13:13:51 [id number] Luís Lucas MD [facility] [address] 06/27/2021 00:00:00 06/27/2021 10:00:07 [id number] Antonieta Farias MD [facility] [address] [address] 07/16/2021 00:00:00 07/17/2021 08:53:25 [id number] Luís Lucas MD [facility] [address] 08/08/2021 00:00:00 08/08/2021 12:16:00 [id number] Luís Lucas MD [facility]_[address] [address] 08/29/2021 00:00:00 08/29/2021 12:23:00 [id number] Antonieta Farias MD [facility] [address] [address] 09/04/2021 00:00:00 09/04/2021 18:29:49 [id number] Luís Lucas MD [facility] [address] 09/12/2021 00:00:00 09/12/2021 11:44:41 [id number] Luís Lucas MD S_[address] [address] 10/31/2021 00:00:00 10/31/2021 12:39:58 [id number] Luís Lucas MD [facility] [address] 11/14/2021 00:00:00 11/14/2021 10:56:25 [id number] Luís Lucas MD S_[facility] [address] 11/28/2021 00:00:00 11/30/2021 21:36:17 [id number] Higinio Ocampo MD [facility] [address] [address] 12/13/2021 00:00:00 12/22/2021 20:59:41 [id number] Higinio Ocampo MD [facility] [address] [address] 06/11/2022 00:00:00 06/30/2022 20:53:21 [id number] Luís Lucas MD S_[facility] [address] 10/09/2022 00:00:00 10/09/2022 12:01:36 [id number] Higinio Ocampo MD [facility] [address] [place], [place] [address]., [address] [address] 12/10/2022 00:00:00 12/13/2022 21:13:20 [id number] Higinio Ocampo MD [facility] [address] [place], [place] [address].[address] [address] 06/17/2023 14:23:06 06/17/2023 14:51:32 Hypertensive disorder 88370284 I10 Gastroesop hageal reflux disease 703754618 K21.9 Vitamin D deficiency 347 97047 E55.9 [id number] Higinio Ocampo MD [facility] [address] [place] [address] 12/16/2023 14:15:17 12/16/2023 15:26:26 Hypertensive disorder 96818135 I10 Skin lesion 02732646 L98 .9 Gastroesop hageal reflux disease 465441289 K21.9 Health Concerns Section Related Observation LastModified by Organization Detai ls LastModified Time None Recorded Concern Status LastModified by Organization Details LastModified Time None Recorded Advance Directives Directive Y: Payers Insurance Date Sequence Insurance Name Policy Number Policy Christensen Covered Member ID Christensen Member ID Guarantor Name 12/28/2023 1 [facility] (MEDICARE REPLACEMENT/A DVANTAGE - HMO) [id number] Janine Kahn [id number] Janine Kahn Notes Date Note Type Note Provider Name and Address Organization Details Recorded Time 06/17/2023 text/html GERD no nausea vomiting are prepared hypertension headache or dizziness. Osteoarthritis seems to be doing okay. History of low vitamin-D asymptomatic Higinio Ocampo MD [address], [facility] [address], [place], [address], [employer] 06/18/2023 08:37:00 12/16/2023 text/html Hypertension no headache no dizzinessDoes have a hyperpigmented skin lesionGERD no nausea no vomiting Higinio Ocampo MD [address], [facility] [address], [place], [address], [employer] 12/26/2023 15:51:33 OBGyn Episode No OBEpisode recorded.
== END 2025-09-19 09:23 | disposition home or self-care (01) ==
PROVIDERS: PCP Internal Medicine; Visit Provider Nurse Practitioner
DX: K74.60 Unspecified cirrhosis of liver (principal); K80.20 Calculus of gallbladder without cholecystitis without obstruction
CPT/HCPCS: 76705

== ENCOUNTER 2025-11-01 09:40 | Outpatient (CLI) | payer MEDICARE, SELFPAY ==
--- NOTE | ~2025-11-01 | CT_ITS ---
EXAMINATION: CT LE LT w con DATE: 11/01/2025 11:38 INDICATION: Left leg pain TECHNIQUE: High resolution computed tomography (CT) of the left lower leg from above the knee through the foot was performed with 100 mL Omnipaque-350 intravenous contrast. Additional sagittal and coronal reconstructions were performed. Automated exposure control and iterative reconstruction technique were employed. The dose-length product was 1153.86 mGy-cm. COMPARISON: Radiographs dated 07/05/2025 FINDINGS: Left total knee arthroplasty with patellar resurfacing which appears well seated in near-anatomic alignment with no periprosthetic lucency to suggest loosening or infection. Minimal left knee joint effusion at the suprapatellar pouch. No fractures. 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 There are a couple small regions of macroscopic fat within the medial head of the left gastrocnemius muscle which could represent small intramuscular lipomas versus regions of focal chronic fatty atrophy. No hemodynamically significant stenosis along the arteries of the left lower leg with three-vessel runoff below the ankle. There is mild subcutaneous edema throughout the left calf. IMPRESSION: 1. Expected appearance of a left total knee arthroplasty with patellar resurfacing and with minimal joint effusion. No acute osseous abnormality visualized left lower leg. 2. 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 Reviewed, dictated and finalized at location A. SIT BUS DRIVER IMPRESSION: 1. Expected appearance of a left total knee arthroplasty with patellar resurfac ing and with minimal joint effusion. No acute osseous abnormality visualized le ft lower leg. 2. 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
--- OUTSIDE RECORDS SUMMARY | 2025-11-01 10:35 | XMS_ITS | Data Portability ---
Author Organization [facility] Address [address] [place] [address] Care Team Providers Care Buggy Operator Name Role Phone LATHA TREE Primary Care Provider Assessment Encounter Date Assessment Date Assessment LastModified by Organization Details LastModified Time 11/04/2024 11/04/2024 Keflex continue MALIKA Also healthy lifestyle care instructions and keep regular appointment [email or web address] Not available 11/05/2024 14:31:33 02/17/2025 02/17/2025 on [...] MRI shows obtain CBC CMP and lipid [email or web address] Not available 02/18/2025 15:11:22 06/21/2025 06/21/2025 Triple antibioti c ointment on the scrape till healed healthy lifestyle care instructions continue medicines for hypertension she is also taking the spironolactone to help control her fluid balance with the cirrhosis 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 blood work has been ordered follow up 4 months Not available 06/21/2025 15:08:52 07/04/2025 07/04/2025 She is going to go see her orthopedist about her knee since she has a replacement there nasal fracture she does not want to pursue any ENT or anything right now she is breathing fine she has dissolvable sutures she will keep her regular appointment with me if she has any other problems she will call records from [facility] emergency room visit reviewed [email or web address] [id number] Not available 07/16/2025 21:01:56 10/17/2025 10/17/2025 Obtain blood wor k obtain CT of the left lower extremity with contrast cirrhosis is stable she will follow up with me regularly in 3 months but we will have further recommendations pending results of the imaging blood work [place] [id number] Not available 10/17/2025 22:18:15 Plan of Treatment Reminders Order Date Submit Date Provider Last Modified By Organization Details Last Modified Time Details Appointments ANY 15 2024 01:30P Thu Ocampo MD Not available Not available Not available Lab C-reactiv e protein, quantitat jessica, serum or plasma 2024 025 [place] [id number] [facility], [address], [address], [place], [address], 10/17/2025 21:13:11 ESR (erythroc yte sedimenta tion rate), blood 2024 025 [place] [id number] [facility], [address], [address], [place], [address], 10/17/2025 21:13:11 CBC 2024 025 [place] [id number] [facility], [address], [address], [place], [address], 10/17/2025 21:13:11 CMP, serum or plasma 2024 025 [place] [id number] [facility], [address], [address], [place], [address], 10/17/2025 21:13:11 PT/INR 2024 025 [employer] [facility], [address], [address], [place], [address], 07/11/2025 01:44:28 CMP, serum or plasma 2024 025 [employer] [facility], [address], [place], [address], 07/21/2025 18:03:18 CBC w/ auto diff 2024 025 [place] [facility], [address], [place], [address], 07/21/2025 18:03:27 lipid panel, serum 2024 025 [place] [facility], [address], [place], [address], 07/11/2025 01:44:26 Referral None recorded. Procedures None recorded. Surgeries None recorded. Imaging CT, lower extremity , w/ contrast [address] [facility], [address], [place], [address], 10/17/2025 21:13:11 MRI, liver, w/wo contrast 2024 025 [facility] (Im[facility]), [address], [place], [address], 03/14/2025 21:36:30 Medication Orders cephalexi n 500 mg capsule 2023 025 [id number], [address] [facility], [place], [place], [id number], 02/17/2025 12:16:26 Patient TargetsNo targets recorded. Patient Instructions Encounter Date Encounter Id Patient Instructions Last Modified By Organization Details Last Modified Time 11/04/2024 [id number] A healthy lifestyle: care instructions [email or web address] Not available 11/04/2024 13:32:29 02/17/2025 [id number] A healthy lifestyle: care instructions [email or web address] Not available 02/17/2025 13:26:11 06/21/2025 [id number] A healthy lifestyle: care instructions [email or web address] Not available 06/21/2025 14:13:05 07/04/2025 [id number] A healthy lifestyle: care instructions [email or web address] Not available 07/04/2025 17:45:06 10/17/2025 [id number] A healthy lifestyle: care instructions Not available 10/17/2025 21:13:11 Reason for Referral None Reported. Results Created Date Observation Date Name Description Value Unit Range Abnormal Flag Note LastModifiedBy Organization Detail LastModifiedTime 10/14/2010/17/2024 LIPID PANEL , STAND JERONIMO cholesterol, total 145 mg/dL <200 normal Not Available [place] [address] [place], [address], 10/17/2024 15:26:35 10/14/2010/17/2024 LIPID PANEL , STAND JERONIMO HDL cholesterol 54 mg/dL > or = 50 normal Not Available [address] [address] [place], [address], 10/17/2024 15:26:35 10/14/20 24 10/17/2024 LIPID PANEL , STAND JERONIMO triglyceride s 62 mg/dL <150 normal Not Available [facility] [address] [place], [address], 10/17/2024 15:26:35 10/14/2010/17/2024 LIPID PANEL , STAND JERONIMO LDL-choleste rol 77 mg/dL _(samantha c) normal Refer ence range : <100 Trae able range <100 mg/dL for prima ry preve ntion ; <70 mg/dL for patie nts with CHD or diabe tic patie nts with > or = 2 CHD risk facto rs. LDL-C is now calcu lated using the Katharine n-Hop kins hueyu familia n, which is a valid ated novel holger holt than the Fried alice equat ion in the estim ation of LDL-C . Katharine mansfield SS et al. WAYNE. 2013; 310(1 9): 2061- 2068 (http ://ed ucati on.Qu estDi Beijing [employer]. com/f aq/FA Q164) Not Available [place] [address] [place], [address], 10/17/2024 15:26:35 10/14/20 24 10/17/2024 LIPID PANEL , STAND JERONIMO chol/HDLC ratio 2.7 (calc ) <5.0 normal Not Available [address], [address], 10/17/2024 15:26:35 10/14/20 24 10/17/2024 LIPID PANEL , STAND JERONIMO non HDL cholesterol 91 mg/dL _(samantha c) <130 normal For patie nts with diabe melba plus 1 major ASCVD risk facto r, treat ing to a non-H DL-C goal of <100 mg/dL (LDL- C of <70 mg/dL ) is brock villegas optio n. Not Available [address], [address], 10/17/2024 15:26:35 10/14/20 24 10/17/2024 MAGNE SIUM magnesium 1.6 mg/dL 1.5-2. 5 normal Not Available [address], [address], 10/17/2024 15:26:37 10/14/20 24 10/17/2024 COMPR EHENS JESSICA METAB OLIC PANEL glucose 112 mg/dL 65-139 normal Non-f astin g refer ence inter cassie Not Available [address] [place], [address], 10/17/2024 15:26:38 10/14/20 24 10/17/2024 COMPR EHENS JESSICA METAB OLIC PANEL urea nitrogen (BUN) 16 mg/dL 7-25 normal Not Available [address], [address], 10/17/2024 15:26:38 10/14/20 24 10/17/2024 COMPR EHENS JESSICA METAB OLIC PANEL creatinine 1.60 mg/dL 0.60-0 .95 high Not Available [address], [address], 10/17/2024 15:26:38 10/14/20 24 10/17/2024 COMPR EHENS JESSICA METAB OLIC PANEL eGFR 32 mL/mi n/1.7 3m2 > or = 60 low Not Available [address], [address], 10/17/2024 15:26:38 10/14/20 24 10/17/2024 COMPR EHENS JESSICA METAB OLIC PANEL BUN/creatini ne ratio 10 (calc ) 6-22 normal Not Available [address], [address], 10/17/2024 15:26:38 10/14/20 24 10/17/2024 COMPR EHENS JESSICA METAB OLIC PANEL sodium 137 mmol/ L 135-14 6 normal Not Available [address], [address], 10/17/2024 15:26:38 10/14/20 24 10/17/2024 COMPR EHENS JESSICA METAB OLIC PANEL potassium 4.0 mmol/ L 3.5-5. 3 normal Not Available [address], [address], 10/17/2024 15:26:38 10/14/20 24 10/17/2024 COMPR EHENS JESSICA METAB OLIC PANEL chloride 102 mmol/ L 98-110 normal Not Available [address], [address], 10/17/2024 15:26:38 10/14/20 24 10/17/2024 COMPR EHENS JESSICA METAB OLIC PANEL carbon dioxide 30 mmol/ L 20-32 normal Not Available [address], [address], 10/17/2024 15:26:38 10/14/20 24 10/17/2024 COMPR EHENS JESSICA METAB OLIC PANEL calcium 9.4 mg/dL 8.6-10 .4 normal Not Available [address], [address], 10/17/2024 15:26:38 10/14/20 24 10/17/2024 COMPR EHENS JESSICA METAB OLIC PANEL protein, total 6.9 g/dL 6.1-8. 1 normal Not Available [address], [address], 10/17/2024 15:26:38 10/14/20 24 10/17/2024 COMPR EHENS JESSICA METAB OLIC PANEL albumin 3.2 g/dL 3.6-5. 1 low Not Available [address], [address], 10/17/2024 15:26:38 10/14/20 24 10/17/2024 COMPR EHENS JESSICA METAB OLIC PANEL globulin 3.7 g/dL_ (calc ) 1.9-3. 7 normal Not Available [address], [address], 10/17/2024 15:26:38 10/14/20 24 10/17/2024 COMPR EHENS JESSICA METAB OLIC PANEL albumin/glob ulin ratio 0.9 (calc ) 1.0-2. 5 low Not Available [address], [address], 10/17/2024 15:26:38 10/14/20 24 10/17/2024 COMPR EHENS JESSICA METAB OLIC PANEL bilirubin, total 2.3 mg/dL 0.2-1. 2 high Not Available [address], [address], 10/17/2024 15:26:38 10/14/20 24 10/17/2024 COMPR EHENS JESSICA METAB OLIC PANEL alkaline phosphatase 68 U/L 37-153 normal Not Available [facility] [address], [address], 10/17/2024 15:26:38 10/14/20 24 10/17/2024 COMPR EHENS JESSICA METAB OLIC PANEL AST 27 U/L 10-35 normal Not Available [address], [address], 10/17/2024 15:26:38 10/14/20 24 10/17/2024 COMPR EHENS JESSICA METAB OLIC PANEL ALT 11 U/L 6-29 normal Not Available [address], [address], 10/17/2024 15:26:38 10/14/20 24 10/17/2024 CBC (INCL UDES DIFF/ PLT) white blood cell count 7.3 thous and/u L 3.8-10 .8 normal Not Available [address], [address], 10/17/2024 15:26:40 10/14/20 24 10/17/2024 CBC (INCL UDES DIFF/ PLT) red blood cell count 3.41 kenneth on/uL 3.80-5 .10 low Not Available [address], [address], 10/17/2024 15:26:40 10/14/20 24 10/17/2024 CBC (INCL UDES DIFF/ PLT) hemoglobin 11.6 g/dL 11.7-1 5.5 low Not Available [facility] [address], [address], 10/17/2024 15:26:40 10/14/20 24 10/17/2024 CBC (INCL UDES DIFF/ PLT) hematocrit 34.9 % 35.0-4 5.0 low Not Available [employer] [address], [address], 10/17/2024 15:26:40 10/14/20 24 10/17/2024 CBC (INCL UDES DIFF/ PLT) MCV 102.3 fL 80.0-1 00.0 high Not Available [facility] [address], [address], 10/17/2024 15:26:40 10/14/20 24 10/17/2024 CBC (INCL UDES DIFF/ PLT) MCH 34.0 pg 27.0-3 3.0 high Not Available [facility] [address], [address], 10/17/2024 15:26:40 10/14/20 24 10/17/2024 CBC (INCL UDES DIFF/ PLT) MCHC 33.2 g/dL 32.0-3 6.0 normal For adult s, a sligh t decre ase in the calcu lated MCHC value (in the range of 30 to 32 g/dL) is most likel y not clini marianela signi cassie t; kameron er, it shoul d be inter prete d with cauti on in [facility] with other red cell patricia eters and the patie nt's clini samantha condi tion. Not Available [facility] [address], [address], 10/17/2024 15:26:40 10/14/20 24 10/17/2024 CBC (INCL UDES DIFF/ PLT) RDW 12.3 % 11.0-1 5.0 normal Not Available [facility] [address], [address], 10/17/2024 15:26:40 10/14/20 24 10/17/2024 CBC (INCL UDES DIFF/ PLT) platelet count 106 thous and/u L 140-40 0 low Not Available [facility] [address], [address], 10/17/2024 15:26:40 10/14/20 24 10/17/2024 CBC (INCL UDES DIFF/ PLT) MPV 10.5 fL 7.5-12 .5 normal Not Available [address], [address], 10/17/2024 15:26:40 10/14/20 24 10/17/2024 CBC (INCL UDES DIFF/ PLT) absolute neutrophils 3475 cells /uL 1500-7 800 normal Not Available [address], [address], 10/17/2024 15:26:40 10/14/20 24 10/17/2024 CBC (INCL UDES DIFF/ PLT) absolute lymphocytes 2227 cells /uL 850-39 00 normal Not Available [address], [address], 10/17/2024 15:26:40 10/14/20 24 10/17/2024 CBC (INCL UDES DIFF/ PLT) absolute monocytes 1044 cells /uL 200-95 0 high Not Available [address], [address], 10/17/2024 15:26:40 10/14/20 24 10/17/2024 CBC (INCL UDES DIFF/ PLT) absolute eosinophils 475 cells /uL 15-500 normal Not Available [address], [address], 10/17/2024 15:26:40 10/14/20 24 10/17/2024 CBC (INCL UDES DIFF/ PLT) absolute basophils 80 cells /uL 0-200 normal Not Available [address], [address], 10/17/2024 15:26:40 10/14/20 24 10/17/2024 CBC (INCL UDES DIFF/ PLT) neutrophils 47.6 % normal Not Available [address] [place], [address], 10/17/2024 15:26:40 10/14/20 24 10/17/2024 CBC (INCL UDES DIFF/ PLT) lymphocytes 30.5 % normal Not Available [address], [address], 10/17/2024 15:26:40 10/14/20 24 10/17/2024 CBC (INCL UDES DIFF/ PLT) monocytes 14.3 % normal Not Available [facility] [address], [address], 10/17/2024 15:26:40 10/14/20 24 10/17/2024 CBC (INCL UDES DIFF/ PLT) eosinophils 6.5 % normal Not Available [address], [address], 10/17/2024 15:26:40 10/14/20 24 10/17/2024 CBC (INCL UDES DIFF/ PLT) basophils 1.1 % normal Not Available [address], [address], 10/17/2024 15:26:40 10/24/20 24 10/24/2024 CBC (INCL UDES DIFF/ PLT) white blood cell count 5.2 thous and/u L 3.8-10 .8 normal Not Available [address], [address], 10/24/2024 17:43:17 10/24/20 24 10/24/2024 CBC (INCL UDES DIFF/ PLT) red blood cell count 3.37 kenneth on/uL 3.80-5 .10 low Not Available [address], [address], 10/24/2024 17:43:17 10/24/20 24 10/24/2024 CBC (INCL UDES DIFF/ PLT) hemoglobin 11.5 g/dL 11.7-1 5.5 low Not Available [facility] [address], [address], 10/24/2024 17:43:17 10/24/20 24 10/24/2024 CBC (INCL UDES DIFF/ PLT) hematocrit 34.8 % 35.0-4 5.0 low Not Available [facility] [address], [address], 10/24/2024 17:43:17 10/24/20 24 10/24/2024 CBC (INCL UDES DIFF/ PLT) MCV 103.3 fL 80.0-1 00.0 high Not Available [facility] [address], [address], 10/24/2024 17:43:17 10/24/20 24 10/24/2024 CBC (INCL UDES DIFF/ PLT) MCH 34.1 pg 27.0-3 3.0 high Not Available [facility] [address], [address], 10/24/2024 17:43:17 10/24/20 24 10/24/2024 CBC (INCL [...] nt's clini samantha condi tion. Not Available [facility] [address], [address], 10/24/2024 17:43:17 10/24/20 24 10/24/2024 CBC (INCL UDES DIFF/ PLT) RDW 12.4 % 11.0-1 5.0 normal Not Available [facility] [address] [place], [address], 10/24/2024 17:43:17 10/24/20 24 10/24/2024 CBC (INCL UDES DIFF/ PLT) platelet count 101 thous and/u L 140-40 0 low Not Available [address], [address], 10/24/2024 17:43:17 10/24/20 24 10/24/2024 CBC (INCL UDES DIFF/ PLT) MPV 10.2 fL 7.5-12 .5 normal Not Available [address], [address], 10/24/2024 17:43:17 10/24/20 24 10/24/2024 CBC (INCL UDES DIFF/ PLT) absolute neutrophils 2454 cells /uL 1500-7 800 normal Not Available [address], [address], 10/24/2024 17:43:17 10/24/20 24 10/24/2024 CBC (INCL UDES DIFF/ PLT) absolute lymphocytes 1596 cells /uL 850-39 00 normal Not Available [address], [address], 10/24/2024 17:43:17 10/24/20 24 10/24/2024 CBC (INCL UDES DIFF/ PLT) absolute monocytes 634 cells /uL 200-95 0 normal Not Available [address], [address], 10/24/2024 17:43:17 10/24/20 24 10/24/2024 CBC (INCL UDES DIFF/ PLT) absolute eosinophils 447 cells /uL 15-500 normal Not Available [address], [address], 10/24/2024 17:43:17 10/24/20 24 10/24/2024 CBC (INCL UDES DIFF/ PLT) absolute basophils 68 cells /uL 0-200 normal Not Available [address], [address], 10/24/2024 17:43:17 10/24/20 24 10/24/2024 CBC (INCL UDES DIFF/ PLT) neutrophils 47.2 % normal Not Available [address], [address], 10/24/2024 17:43:17 10/24/20 24 10/24/2024 CBC (INCL UDES DIFF/ PLT) lymphocytes 30.7 % normal Not Available [address], [address], 10/24/2024 17:43:17 10/24/20 24 10/24/2024 CBC (INCL UDES DIFF/ PLT) monocytes 12.2 % normal Not Available [address], [address], 10/24/2024 17:43:17 10/24/20 24 10/24/2024 CBC (INCL UDES DIFF/ PLT) eosinophils 8.6 % normal Not Available [address], [address], 10/24/2024 17:43:17 10/24/20 24 10/24/2024 CBC (INCL UDES DIFF/ PLT) basophils 1.3 % normal Not Available [address], [address], 10/24/2024 17:43:17 02/29/20 25 03/01/2025 LIPID PANEL , STAND JERONIMO cholesterol, total 148 mg/dL <200 normal Not Available [address], [address], 03/01/2025 01:16:01 02/29/20 25 03/01/2025 LIPID PANEL , STAND JERONIMO HDL cholesterol 56 mg/dL > or = 50 normal Not Available [address] [address], [place], [address], 03/01/2025 01:16:01 02/29/2003/01/2025 LIPID PANEL , STAND JERONIMO triglyceride s 65 mg/dL <150 normal Not Available [address], [place], [address], 03/01/2025 01:16:02/29/2003/01/2025 LIPID PANEL , STAND JERONIMO LDL-choleste rol 78 mg/dL _(samantha c) normal Refer ence range : <100 Trae able range <100 mg/dL for prima ry preve ntion ; <70 mg/dL for patie nts with CHD or diabe tic patie nts with > or = 2 CHD risk facto rs. LDL-C is now calcu lated using the Katharine mansfield-Hop kins hueyu familia n, which is a valid ated novel holger moncada accur acy than the Fried alice equat ion in the estim ation of LDL-C . Katharine mansfield SS et al. WAYNE. 2013; 310(1 9): 2061- 2068 (http ://ed ucati on.Orad francisco j[employer]. [employer]/f aq/FA Q164) Not Available [address] [address], [place], [address], 03/01/2025 01:16:02/29/2003/01/2025 LIPID PANEL , STAND JERONIMO chol/HDLC ratio 2.6 (calc ) <5.0 normal Not Available [facility] [address] [address] , [place], [address], 03/01/2025 01:16:02/29/2003/01/2025 LIPID PANEL , STAND JERONIMO non HDL cholesterol 92 mg/dL _(samantha c) <130 normal For patie nts with diabe melba plus 1 major ASCVD risk facto r, treat ing to a non-H DL-C goal of <100 mg/dL (LDL- C of <70 mg/dL ) is consi dered a thera peuti c optio n. Not Available [address], [address], 03/01/2025 01:16:01 02/29/20 25 03/01/2025 COMPR EHENS JESSICA METAB OLIC PANEL glucose 90 mg/dL 65-139 normal Non-f astin g refer ence inter cassie Not Available [address], [address], 03/01/2025 01:16:02 02/29/20 25 03/01/2025 COMPR EHENS JESSICA METAB OLIC PANEL urea nitrogen (BUN) 14 mg/dL 7-25 normal Not Available [address], [address], 03/01/2025 01:16:02 02/29/2003/01/2025 COMPR EHENS JESSICA METAB OLIC PANEL creatinine 1.35 mg/dL 0.60-0 .95 high Not Available [address], [address], 03/01/2025 01:16:02 02/29/2003/01/2025 COMPR EHENS JESSICA METAB OLIC PANEL eGFR 39 mL/mi n/1.7 3m2 > or = 60 low Not Available [address], [address], 03/01/2025 01:16:02 02/29/2003/01/2025 COMPR EHENS JESSICA METAB OLIC PANEL BUN/creatini ne ratio 10 (calc ) 6-22 normal Not Available [address], [address], 03/01/2025 01:16:02 02/29/20 25 03/01/2025 COMPR EHENS JESSICA METAB OLIC PANEL sodium 138 mmol/ L 135-14 6 normal Not Available [address], [address], 03/01/2025 01:16:02 02/29/20 25 03/01/2025 COMPR EHENS JESSICA METAB OLIC PANEL potassium 4.3 mmol/ L 3.5-5. 3 normal Not Available [address], [address], 03/01/2025 01:16:02 02/29/20 25 03/01/2025 COMPR EHENS JESSICA METAB OLIC PANEL chloride 104 mmol/ L 98-110 normal Not Available [address], [address], 03/01/2025 01:16:02 02/29/20 25 03/01/2025 COMPR EHENS JESSICA METAB OLIC PANEL carbon dioxide 26 mmol/ L 20-32 normal Not Available [address], [address], 03/01/2025 01:16:02 02/29/20 25 03/01/2025 COMPR EHENS JESSICA METAB OLIC PANEL calcium 9.0 mg/dL 8.6-10 .4 normal Not Available [address], [address], 03/01/2025 01:16:02 02/29/20 25 03/01/2025 COMPR EHENS JESSICA METAB OLIC PANEL protein, total 6.4 g/dL 6.1-8. 1 normal Not Available [address], [address], 03/01/2025 01:16:02 02/29/20 25 03/01/2025 COMPR EHENS JESSICA METAB OLIC PANEL albumin 3.1 g/dL 3.6-5. 1 low Not Available [address], [address], 03/01/2025 01:16:02 02/29/20 25 03/01/2025 COMPR EHENS JESSICA METAB OLIC PANEL globulin 3.3 g/dL_ (calc ) 1.9-3. 7 normal Not Available [address], [address], 03/01/2025 01:16:02 02/29/20 25 03/01/2025 COMPR EHENS JESSICA METAB OLIC PANEL albumin/glob ulin ratio 0.9 (calc ) 1.0-2. 5 low Not Available [address], [address], 03/01/2025 01:16:02 02/29/20 25 03/01/2025 COMPR EHENS JESSICA METAB OLIC PANEL bilirubin, total 2.1 mg/dL 0.2-1. 2 high Not Available [address], [address], 03/01/2025 01:16:02 02/29/20 25 03/01/2025 COMPR EHENS JESSICA METAB OLIC PANEL alkaline phosphatase 61 U/L 37-153 normal Not Available [address], [address], 03/01/2025 01:16:02 02/29/20 25 03/01/2025 COMPR EHENS JESSICA METAB OLIC PANEL AST 29 U/L 10-35 normal Not Available [address], [address], 03/01/2025 01:16:02 02/29/20 25 03/01/2025 COMPR EHENS JESSICA METAB OLIC PANEL ALT 11 U/L 6-29 normal Not Available [address], [address], 03/01/2025 01:16:02 02/29/20 25 03/01/2025 CBC (INCL UDES DIFF/ PLT) white blood cell count 5.2 thous and/u L 3.8-10 .8 normal Not Available [address] [place], [address], 03/01/2025 01:16:03 02/29/2003/01/2025 CBC (INCL UDES DIFF/ PLT) red blood cell count 3.34 kenneth on/uL 3.80-5 .10 low Not Available [facility] [address], [address], 03/01/2025 01:16:03 02/29/2003/01/2025 CBC (INCL UDES DIFF/ PLT) hemoglobin 11.5 g/dL 11.7-1 5.5 low Not Available [facility] [address], [address], 03/01/2025 01:16:03 02/29/2003/01/2025 CBC (INCL UDES DIFF/ PLT) hematocrit 34.4 % 35.0-4 5.0 low Not Available [facility] [address], [address], 03/01/2025 01:16:03 02/29/2003/01/2025 CBC (INCL UDES DIFF/ PLT) MCV 103.0 fL 80.0-1 00.0 high Not Available [facility] [address], [address], 03/01/2025 01:16:03 02/29/2003/01/2025 CBC (INCL UDES DIFF/ PLT) MCH 34.4 pg 27.0-3 3.0 high Not Available [facility] [address], [address], 03/01/2025 01:16:03 02/29/2003/01/2025 CBC (INCL UDES DIFF/ PLT) MCHC 33.4 g/dL 32.0-3 6.0 normal For adult s, a sligh t decre ase in the calcu lated MCHC value (in the range of 30 to 32 g/dL) is most likel y not clini marianela signi fican t; kameron er, it shoul d be inter prete d with cauti on in corre latio n with other red cell patricia eters and the patie nt's clini samantha condi tion. Not Available [facility] [address], [address], 03/01/2025 01:16:03 02/29/2003/01/2025 CBC (INCL UDES DIFF/ PLT) RDW 12.2 % 11.0-1 5.0 normal Not Available [facility] [address], [address], 03/01/2025 01:16:03 02/29/2003/01/2025 CBC (INCL UDES DIFF/ PLT) platelet count 89 thous and/u L 140-40 0 low Not Available [address], [address], 03/01/2025 01:16:03 02/29/2003/01/2025 CBC (INCL UDES DIFF/ PLT) MPV 10.5 fL 7.5-12 .5 normal Not Available [address], [address], 03/01/2025 01:16:03 02/29/2003/01/2025 CBC (INCL UDES DIFF/ PLT) absolute neutrophils 2158 cells /uL 1500-7 800 normal Not Available [facility] [address], [address], 03/01/2025 01:16:03 02/29/2003/01/2025 CBC (INCL UDES DIFF/ PLT) absolute lymphocytes 1888 cells /uL 850-39 00 normal Not Available [address], [address], 03/01/2025 01:16:03 02/29/2003/01/2025 CBC (INCL UDES DIFF/ PLT) absolute monocytes 718 cells /uL 200-95 0 normal Not Available [address], [address], 03/01/2025 01:16:03 02/29/20 25 03/01/2025 CBC (INCL UDES DIFF/ PLT) absolute eosinophils 369 cells /uL 15-500 normal Not Available [address], [address], 03/01/2025 01:16:03 02/29/20 25 03/01/2025 CBC (INCL UDES DIFF/ PLT) absolute basophils 68 cells /uL 0-200 normal Not Available [address], [address], 03/01/2025 01:16:03 02/29/20 25 03/01/2025 CBC (INCL UDES DIFF/ PLT) neutrophils 41.5 % normal Not Available [address], [address], 03/01/2025 01:16:03 02/29/20 25 03/01/2025 CBC (INCL UDES DIFF/ PLT) lymphocytes 36.3 % normal Not Available [address], [address], 03/01/2025 01:16:03 02/29/20 25 03/01/2025 CBC (INCL UDES DIFF/ PLT) monocytes 13.8 % normal Not Available [address], [address], 03/01/2025 01:16:03 02/29/20 25 03/01/2025 CBC (INCL UDES DIFF/ PLT) eosinophils 7.1 % normal Not Available [address], [address], 03/01/2025 01:16:03 02/29/20 25 03/01/2025 CBC (INCL UDES DIFF/ PLT) basophils 1.3 % normal Not Available [facility] [address] [address] [place], [address], 03/01/2025 01:16:03 07/10/2007/11/2025 LIPID PANEL , STAND JERONIMO cholesterol, total 138 mg/dL <200 normal Not Available [facility] [address] [address] [place], [address], 07/11/2025 01:44:22 07/10/2007/11/2025 LIPID PANEL , STAND JERONIMO HDL cholesterol 49 mg/dL > or = 50 low Not Available [facility] [address] [address] [place], [address], 07/11/2025 01:44:22 07/10/2007/11/2025 LIPID PANEL , STAND JERONIMO triglyceride s 57 mg/dL <150 normal Not Available [facility] [address] [address] [place], [address], 07/11/2025 01:44:22 07/10/2007/11/2025 LIPID PANEL , STAND JERONIMO LDL-choleste rol 76 mg/dL _(samantha c) normal Refer ence range : <100 Trae able range <100 mg/dL for prima ry preve ntion ; <70 mg/dL for patie nts with CHD or diabe tic patie nts with > or = 2 CHD risk facto rs. LDL-C is now calcu lated using the Katharine n-Hop kins nick barbosa n, which is a valid ated novel holger moncada accur acy than the Fried alice equat ion in the estim ation of LDL-C . Katharine mansfield SS et al. WAYNE. 2013; 310(1 9): 2061- 2068 (http ://ed ucati on.Qu Ly cervantess. com/f aq/FA Q164) Not Available [facility] [address] [address] [place], [address], 07/11/2025 01:44:22 07/10/2007/11/2025 LIPID PANEL , STAND JERONIMO chol/HDLC ratio 2.8 (calc ) <5.0 normal Not Available [address] [address] [place], [address], 07/11/2025 01:44:22 07/10/2007/11/2025 LIPID PANEL , STAND JERONIMO non HDL cholesterol 89 mg/dL _(samantha c) <130 normal For patie nts with diabe melba plus 1 major ASCVD risk facto r, treat ing to a non-H DL-C goal of <100 mg/dL (LDL- C of <70 mg/dL ) is consi dered a thera peuti c optio n. Not Available [facility] [address] [address] [place], [address], 07/11/2025 01:44:22 07/10/2007/11/2025 PROTH ROMBI N TIME- INR INR 1.3 high Refer ence Range 0.9-1 .1 Moder ate-i ntens ity Warfa rin Thera py 2.0-3 .0 Highe r-int ensit y Warfa rin Thera py 3.0-4 .0 Not Available [address] [address] [facility] [place], [address], 07/11/2025 01:44:28 07/10/2007/11/2025 PROTH ROMBI N TIME- INR PT 14.1 sec 9.0-11 .5 high For addit ional infor damian núñez e refer to http: //[facility] mansfield.que stdia gnost ics.c om/fa q/FAQ 104 (This link is being provi ded for infor rachel johnson/ vanita mckoy ses only. ) Not Available [address] [address] [place], [address], 07/11/2025 01:44:28 07/10/2007/14/2025 hepat itis B surfa ce Ab, quant itati ve, serum hepatitis B virus surface antibody quantitative <5 text: > or = 10 mIU/mL low Patie nt does not have immun ity to hepat itis B virus . For addit ional infor damian núñez refer to http: //[facility] sharmaque stdia gnost ics.c om/fa q/FAQ 105 (This link is being provi ded for infor rachel johnson/ educa stephanie l purpo ses only) . Test Perfo rmed at: [facility] [place] [address] [place] [address] SOUMYA CORONA MD Not Available Not Available 08/17/2025 10:16:20 07/10/20 25 07/14/2025 hepat itis B surfa ce Ab, quant itati ve, serum lab interpretati on Abnorm al Not Available Not Available 10:16:20 07/10/20 25 07/14/2025 Mitoc hondr ia M2 IgG Ab [Unit s/vol ume] in Serum mitochondria l M2 antibody <20.0 text: U Refer ence Range : NEGAT JESSICA: < OR = 20.0 EQUIV OCAL: 20.1- 24.9 POSIT JESSICA: > OR = 25.0 Test Perfo rmed at: [facility] [address] [address] [place] [address] Thu HIGGINBOTHAM,PHD ,JOYA Not Available Not Available 07/14/2025 11:21:59 07/10/20 25 07/14/2025 Nucle ar Ab [Pres ence] in Serum by Immun oassa y ZACHARY 1:40 text: titer high A low level ZACHARY titer may be prese nt in pre-c linic al autoi mmune disea ses and eyad l indiv idual s. Refer ence Range <1:40 Negat jessica 1:40- 1:80 Low Antib sayda Level >1:80 Sandy víctor Antib sayda Level Not Available Not Available 07/14/2025 11:21:59 07/10/20 25 07/14/2025 Nucle ar Ab [Pres ence] in Serum by Immun oassa y ZACHARY pattern Nuclea r, Speckl ed abnormal Speck led mayco rn is assoc iated with mixed conne ctive tissu e disea se (MCTD ), syste virgilio lupus eryth emato bee (SLE) , Sjogr en's syndr ome, derma tomyo sitis , and syste virgilio scler osis/ polym yosit is overl ap. AC-2, 4,5,2 9: Speck led Inter natio nal Conse nsus on ZACHARY Patte rns (http s://d oi.or g/10. 1515/ [facility]- 2018- 0052) Test Perfo rmed at: [facility] [place] [address] [place] [address] SOUMYA CORONA MD Not Available Not Available 07/14/2025 11:21:59 07/10/2007/14/2025 Nucle ar Ab [Pres ence] in Serum by Immun oassa y interpretati on and review of laboratory results Abnorm al Not Available Not Available 11:21:59 07/10/2007/14/2025 Nucle ar Ab [Pres ence] in Serum by Immun oassa y ZACHARY screen POSITI VE text: negati ve abnormal ZACHARY IFA is a first line scree n for detec ting the prese nce of up to appro ximat korin 150 autoa ntibo dies in vario us autoi mmune disea ses. A posit jessica ZACHARY IFA resul t is sugge stive of autoi mmune disea se and refle xes to titer and mayco rn. Furth er labor atory testi ng may be consi dered if clini marianela indic ated. For addit ional infor damian núñez e refer to http: //asher catgill n.Que stDia gnost ics.c om/fa q/FAQ 177 (This link is being provi ded for infor rachel johnson/ educa stephanie l purpo ses only. ) Test Perfo rmed at: [facility] [place] [address] [place] [address] SOUMYA CORONA MD Not Available Not Available 07/14/2025 11:21:59 07/10/20 25 07/14/2025 Nucle ar Ab [Pres ence] in Serum by Immun oassa y interpretati on and review of laboratory results Abnorm al Not Available Not Available 11:21:59 07/10/20 25 07/14/2025 Cerul oplas min [Mass /volu me] in Serum or Plasm a ceruloplasmi n 18 mg/dL low: 14mg/d Lhigh: 48mg/d L Test Perfo rmed at: [facility] [place] [address] [place] [address] SOUMYA CORONA MD Not Available Not Available 07/14/2025 11:21:59 07/10/2007/14/2025 Alpha 1 antit rypsi n [Mass /volu me] in Serum or Plasm a [id number] trypsin 141 mg/dL low: 83mg/d Lhigh: 199mg/ dL Test Perfo rmed at: [facility] [place] [address] [place] [address] SOUMYA CORONA MD Not Available Not Available 07/14/2025 11:21:58 07/10/20 25 07/14/2025 INR in Plate let poor plasm a by Coagu latio n assay INR in platelet poor plasma by coagulation assay 1.3 high Refer ence Range 0.9-1 .1 Moder ate-i ntens ity Warfa rin Thera py 2.0-3 .0 Highe r-int ensit y Warfa rin Thera py 3.0-4 .0 Not Available Not Available 07/14/2025 11:21:58 07/10/20 25 07/14/2025 INR in Plate let poor plasm a by Coagu latio n assay prothrombin time (PT) 14.1 text: 9.0 - 11.5 sec high For addit ional damian stanley refer to http: //asher mansfield.que stdia gnost ics.c om/fa q/FAQ 104 (This link is being provi ded for olga lidia johnson/ vanita taveras purpo ses only. ) Test Perfo rmed at: [facility] [address] [address] [facility] [place] [address] SOUMYA CORONA MD Not Available Not Available 07/14/2025 11:21:58 07/10/2007/14/2025 INR in Plate let poor plasm a by Darling mansfield assay interpretati on and review of laboratory results Abnorm al Not Available Not Available 11:21:58 07/10/20 25 07/14/2025 Compr ehens jessica metab olic 2000 panel - Serum or Plasm a glucose 86 mg/dL low: 65mg/d Lhigh: 99mg/d L Fasti ng refer ence inter cassie Not Available Not Available 07/14/2025 11:21:58 07/10/20 25 07/14/2025 Compr ehens jessica metab olic 2000 panel - Serum or Plasm a BUN 18 mg/dL low: 7mg/dL high: 25mg/d L Not Available Not Available 07/14/2025 11:21:58 07/10/20 25 07/14/2025 Compr ehens jessica metab olic 2000 panel - Serum or Plasm a creatinine 1.58 mg/dL low: 0.6mg/ dLhigh : 0.95mg /dL high Not Available Not Available 07/14/2025 11:21:58 07/10/20 25 07/14/2025 Compr ehens jessica metab olic 2000 panel - Serum or Plasm a glomerular filtration rate [volume rate/area] in serum, plasma or blood by cystatin C-based formula/1.73 sq M 32 text: > or = 60 mL/min /1.73m 2 low Not Available Not Available 07/14/2025 11:21:58 07/10/20 25 07/14/2025 Compr ehens jessica metab olic 2000 panel - Serum or Plasm a BUN/creatini ne ratio 11 text: 6 - 22 (calc) Not Available Not Available 07/14/2025 11:21:58 07/10/20 25 07/14/2025 Compr ehens jessica metab olic 2000 panel - Serum or Plasm a sodium 134 mmol/ L low: 135mmo l/Lhig h: 146mmo l/L low Not Available Not Available 07/14/2025 11:21:58 07/10/20 25 07/14/2025 [facility] ehens jessica metab olic 1999 panel - Serum or Plasm a potassium 4.5 mmol/ L low: 3.5mmo l/Lhig h: 5.3mmo l/L Not Available Not Available 07/14/2025 11:21:58 07/10/20 25 07/14/2025 [facility] - Serum or Plasm a chloride 103 mmol/ L low: 98mmol /Lhigh : 110mmo l/L Not Available Not Available 07/14/2025 11:21:58 07/10/20 25 07/14/2025 [facility] 2000 panel - Serum or Plasm a CO2 24 mmol/ L low: 20mmol /Lhigh : 32mmol /L Not Available Not Available 07/14/2025 11:21:58 07/10/20 25 07/14/2025 [facility] 2000 panel - Serum or Plasm a calcium 8.5 mg/dL low: 8.6mg/ dLhigh : 10.4mg /dL low Not Available Not Available 07/14/2025 11:21:58 07/10/20 25 07/14/2025 [facility]lic 2000 panel - Serum or Plasm a protein total 6.4 g/dL low: 6.1g/d Lhigh: 8.1g/d L Not Available Not Available 07/14/2025 11:21:58 07/10/20 25 07/14/2025 [facility]lic 1999 panel - Serum or Plasm a albumin 3 g/dL low: 3.6g/d Lhigh: 5.1g/d L low Not Available Not Available 07/14/2025 11:21:58 07/10/20 25 07/14/2025 Compr ehens jessica metab olic 2000 panel - Serum or Plasm a globulin total 3.4 text: 1.9 - 3.7 g/dL (calc) Not Available Not Available 07/14/2025 11:21:58 07/10/20 25 07/14/2025 [facility] 2000 panel - Serum or Plasm a albumin/glob ulin ratio 0.9 text: 1.0 - 2.5 (calc) low Not Available Not Available 07/14/2025 11:21:58 07/10/20 25 07/14/2025 Compr ehens jessica metab olic 2000 panel - Serum or Plasm a bilirubin total 2.6 mg/dL low: 0.2mg/ dLhigh : 1.2mg/ dL high Not Available Not Available 07/14/2025 11:21:58 07/10/20 25 07/14/2025 Compr ehens jessica metab olic 2000 panel - Serum or Plasm a alkaline phosphatase 65 U/L low: 37U/Lh igh: 153U/L Not Available Not Available 07/14/2025 11:21:58 07/10/20 25 07/14/2025 Compr ehens jessica metab olic 2000 panel - Serum or Plasm a AST 31 U/L low: 10U/Lh igh: 35U/L Not Available Not Available 07/14/2025 11:21:58 07/10/20 25 07/14/2025 Compr ehens jessica metab olic 2000 panel - Serum or Plasm a ALT 14 U/L low: 6U/Lhi gh: 29U/L Test Perfo rmed at: [facility] [address] [address] [facility] [place] [address] SOUMYA CORONA MD Not Available Not Available 07/14/2025 11:21:58 07/10/20 25 07/14/2025 Compr ehens jessica metab olic 2000 panel - Serum or Plasm a interpretati on and review of laboratory results Abnorm al Not Available Not Available 11:21:58 07/10/20 25 07/14/2025 [employer] jalen ng capac ity panel - Serum or Plasm a iron 231 text: 45 - 160 mcg/dL high Not Available Not Available 07/14/2025 11:21:58 07/10/20 25 07/14/2025 Iron and Iron jalen ng capac ity panel - Serum or Plasm a TIBC 241 text: 250 - 450 mcg/dL (calc) low Not Available Not Available 07/14/2025 11:21:58 07/10/20 25 07/14/2025 Iron and Iron jalen ng capac ity panel - Serum or Plasm a % saturation 96 text: 16 - 45 % (calc) high Test Perfo rmed at: [facility] [place] [address] [place], [place] [address] SOUMYA CORONA MD Not Available Not Available 07/14/2025 11:21:58 07/10/2007/14/2025 Iron and Iron jalen ng capac ity panel - Serum or Plasm a interpretati on and review of laboratory results Abnorm al Not Available Not Available 11:21:58 07/10/2007/14/2025 Hepat itis B virus core Ab [Pres ence] in Serum hepatitis B core virus antibody total NON-RE ACTIVE text: non-re active For addit ional infor damian núñez e refer to http: //edu catgill n.cece stdia gnost ics.c om/fa q/FAQ 202 (This link is being provi ded for infor matio nal/ educa stephanie l purpo ses only. ) Test Perfo rmed at: [facility] [place] [address] [place], [place] [address] SOUMYA CORONA MD Not Available Not Available 07/14/2025 11:21:58 07/10/20 25 07/14/2025 Hepat itis A virus Ab [Pres ence] in Serum by Immun oassa y hepatitis A virus antibody total REACTI VE text: non-re active abnormal For addit ional infor damian núñez e refer to http: //edu catio n.cece stdia gnost ics.c om/fa q/FAQ (This link is being provi ded for infor matio nal/ educa stephanie l purpo ses only. ) Test Perfo rmed at: [facility] [place] [address] [place], [place] [address] SOUMYA CORONA MD Not Available Not Available 07/14/2025 11:21:58 07/10/20 25 07/14/2025 Hepat itis A virus Ab [Pres ence] in Serum by Immun oassa y interpretati on and review of laboratory results Abnorm al Not Available Not Available 11:21:58 07/10/20 25 07/14/2025 Cash tin [Mass /volu me] in Serum or Plasm a ferritin 148 NG/mL low: 16NG/m Lhigh: 288NG/ mL REPOR T COMME NT: INSUR ANCE VERIF IED FASTI NG:YE S Test Perfo rmed at: [facility] [place] [address] [place] [address] SOUMYA CORONA MD Not Available Not Available 07/14/2025 11:21:58 03/14/20 25 03/14/2025 MRI, liver , w/wo contr ast No observ ation record ed. [address], [place], [address], 03/21/2025 11:21:48 03/15/20 25 03/14/2025 MRI, liver , w/wo contr ast No observ ation record ed. [address], [place], [address], 03/21/2025 11:21:49 09/19/20 25 09/19/2025 US, abdom en No observ ation record ed. [address], [place], [address], 09/21/2025 12:23:12 Result Notes None recorded. Problems Name Problem SNOMED Code Status Onset Date Resolution Date Notes Provider Name and Address Organization Details Recorded Time Abdominal pain 68561401 Active 2023 Nabila Prince [place] null, [place] - [facility] 4 15:12:40 Gastroesophage al reflux disease without esophagitis 741552348 Active 2023 Nabila Prince [place] [facility] 4 15:12:40 Edema of lower extremity 994031609 Active 2023 Nabila Prince [place], [place] [facility] 4 15:12:41 Vitamin D below reference range 250210929 Active 2023 Tree Ocampo MD Attn: Lisandro vee,[address] [place], [address], [place] [facility] 4 21:58:33 Essential hypertension 33467298 Active 2023 MASOUD [place], [place] - [facility] 4 09:50:10 Imaging of liver abnormal 652686563 Active 2023 Tree Ocampo MD Attn: Lisandro vee,[address], [place], [address], [place] [facility] 4 22:22:51 Cellulitis of lower limb 754505856 Active 2023 MASOUD [place] [facility] 4 13:13:25 Pain in left lower limb 953685534 Active 2024 MASOUD [place] [facility] 5 14:33:15 Cirrhosis of liver 79481492 Active 2024 MASOUD [place] [facility] 5 14:33:16 Problem Notes None recorded. Procedures Surgical History Date Name Laterality Status Provider Name and Address Organization Details Recorded Time Eye Surgery completed MASOUD Vargas - [place] 03/10/2024 14:44:20 Knee Surgery completed Joellen Neal MA [place] - [place] 03/10/2024 14:44:48 Imaging Results None recorded. Procedure Notes None recorded. Medical Equipment None Reported. Allergies Allergen ID Allergen Name Allergen Category Reaction Reaction Severity Criticality Documentation Date Start Date Code Code System Note Provider Name and Address Organization Details Recorded Time [id number] codeine medicatio n dizziness Not available Not available 03/10/2024 2670 RxNorm Joellen Neal MA [place], [place] - [facility] 4 14:42:37 Medications Name Sig Start Date Stop Date [...] Not Available Not Available Not Avai lable omeprazole 20 mg tablet,delay ed release Take 1 tablet every day by oral route. 06/08 completed Not Available Not Available Not Available Vitals Date Recorded Body weight Body mass index (BMI) Body height Heart rate Oxygen saturation Systolic And Diastolic Provider Name and Address Organization Details Last Updated DateTime 5 95286.4 8 g 34.6 kg/m2 154.94 cm 67 /min 98 % 143/82 mm[Hg] Nabila Prince MA [facility] 5 12:15:32 Date Recorded Body height Body mass index (BMI) Body weight Heart rate Oxygen saturation Systolic And Diastolic Provider Name and Address Organization Details Last Updated DateTime 5 154.94 cm 34.7 kg/m2 78810.6 4 g 73 /min 98 % 134/72 mm[Hg] Nancy Go MA [facility] 5 13:46:46 Date Recorded Body height Body mass index (BMI) Body weight Heart rate Oxygen saturation Systolic And Diastolic Provider Name and Address Organization Details Last Updated DateTime 5 154.94 cm 34.8 kg/m2 95068.7 1 g 70 /min 99 % 128/70 mm[Hg] Nancy Go MA [facility] 5 16:25:13 Date Recorded Body height Body mass index (BMI) Body weight Heart rate Oxygen saturation Systolic And Diastolic Provider Name and Address Organization Details Last Updated DateTime 5 154.94 cm 35.2 kg/m2 76202.6 2 g 88 /min 98 % 124/68 mm[Hg] Paris Chan MA [facility] 5 13:55:18 Date Recorded Body height Body mass index (BMI) Body weight Heart rate Oxygen saturation Systolic And Diastolic Provider Name and Address Organization Details Last Updated DateTime 157.48 cm 34.1 kg/m2 64049.7 g 73 /min 97 % 122/72 mm[Hg] Paris Chan MA [facility] 12:17:22 Social History Question Answer Notes LastModified by Organizat ion Details LastModified Time Tobacco Smoking Status Never Smoker Joellen Neal MA null, [place] - [place] 03/10/2024 14:47:22 Do You Have An Advance Directive? Yes Information n ot available 06/08/2024 Are You Blind Or Do You Have Difficulty Seeing? No Information n ot available 03/10/2024 What Is Your Level Of Caffeine Consumption? Moderate Information not available 06/08/2024 In The 14 Days Before Symptom Onset, Have You Had Close Contact With A Laboratory-confirm ed COVID-19 While That Case Was Ill? No Information n ot available 11/04/2024 In The 14 Days Before Symptom Onset, Have You Had Close Contact With A Person Who Is Under Investigation For COVID-19 While That Person Was Ill? No Information not available 11/04/2024 Have You Been To An Area Known To Be High Risk For COVID-19? No Information not available 11/04/2024 Are You Deaf Or Do You Have Serious Difficulty Hearing? No Information not available 03/10/2024 What Type Of Diet Are You Following? REGULAR Information n ot available 06/08/2024 Are There Any Guns Present In Your Home? No Information not available 11/04/2024 What Was The Date Of Your Most Recent Tobacco Screening? 10/17/2025 Information not available 10/17/2025 What Is Your Relationship Status? Information not available 03/10/2024 Do You Use Your Seat Belt Or Car Seat Routinely? Yes Information not available 06/08/2024 Do You Have Smoke And Carbon Monoxide Detectors In Your Home? Yes Information not available 06/08/2024 Do You Use Sunscreen Routinely? Yes Information not available 11/04/2024 Has Tobacco Cessation Counseling Been Provided? No Information not available 06/08/2024 Sex: Female Functional Status Question Answer Note LastModified by Organizat ion Details LastModified Time Do you use any illicit or recreational drugs? No Information not available 06/08/2024 Do you or have you ever used any other forms of tobacco or nicotine? No Information not available 06/08/2024 What is your level of alcohol consumption? None Information not available 03/10/2024 Are you currently employed? No retired Information not available 06/08/2024 Are you able to care for yourself independently? Yes Information not available 03/10/2024 Mental Status Question Answer Note LastModified by Organization D etails LastModified Time Do you feel stressed (tense, restless, nervous, or anxious, or unable to sleep at night)? [id number] Information not available 03/10/2024 Family History Relationship Description Onset Age of [...] Details Recorded Time Influenza, adjuvanted, trivalent, PF 9 completed MASOUD [place], [place] [facility] 06/08/2024 12:07:29 Influenza, high-dose, quadrivalent, PF 0 completed Tyra Gilli[place] [facility] 06/08/2024 12:07:29 Influenza, high-dose, quadrivalent, PF 1 completed Tyra [place]illi[place] [facility] 06/08/2024 12:07:29 Influenza, high-dose, quadrivalent, PF 2 completed [place] [facility] 06/08/2024 12:07:29 Influenza, high-dose, quadrivalent, PF 3 completed [place] [facility] 06/08/2024 12:07:29 COVID-19, mRNA, LNP-S, PF, 100 mcg/0.5mL dose or 50 mcg/0.25mL dose 2 completed [place] [facility] 06/08/2024 12:07:29 COVID-19, mRNA, LNP-S, PF, 100 mcg/0.5mL dose or 50 mcg/0.25mL dose 1 completed [place] [facility] 06/08/2024 12:07:29 COVID-19, mRNA, LNP-S, PF, 100 mcg/0.5mL dose or 50 mcg/0.25mL dose 1 completed [place] [facility] 06/08/2024 12:07:29 COVID-19, mRNA, LNP-S, bivalent, PF, 50 mcg/0.5 mL or 25mcg/0.25 mL dose 2 completed [place]OUD [place] [facility] 06/08/2024 12:07:29 RSV, recombinant, protein subunit RSVpreF, adjuvant reconstituted, 0.5 mL, PF 3 completed [place] [facility] 06/08/2024 12:07:29 influenza, unspecified formulation 8 completed [place] [facility] 06/08/2024 12:07:29 Influenza, high-dose, trivalent, PF 5 completed [place] [facility] 06/08/2024 12:07:29 Influenza, high-dose, trivalent, PF 7 completed [place] [facility] 06/08/2024 12:07:29 Influenza, split virus, quadrivalent, PF 6 completed [place] [facility] 06/08/2024 12:07:29 COVID-19, mRNA, LNP-S, PF, 50 mcg/0.5 mL 4 completed [place] [facility] 02/17/2025 12:11:41 Influenza, high-dose, trivalent, PF 4 completed [place] [facility] 02/17/2025 12:11:41 Tdap 5 completed Not Available [facility] 10/17/2025 13:42:27 COVID-19, mRNA, LNP-S, PF, 10 mcg/0.2 mL 5 completed Not Available [facility] 10/17/2025 13:42:27 Influenza, high-dose, trivalent, PF 5 completed Not Available [facility] 10/17/2025 13:42:27 Past Encounters Encounter ID Performer Location Encounter Start Date Encounter Closed Date Diagnosis/Indication Diagnosis SNOMED-CT Code Diagnosis ICD10 Code Diagnosis IMO Codes Diagnosis Note [id number] Tree Ocampo MD [facility] [address] [address] [place] [address] 03/10/2024 14:30:26 03/10/2024 15:07:57 Abdominal pain 01924330 R10.9 Gastroesop hageal reflux disease without esophagitis 479726901 K21.9 Edema of l ower extremity 747196995 R60.0 Vitamin D below reference range 903492493 E55.9 [id number] Tree Ocampo MD [facility] (Adult Med) [address] [place] [phone] 06/08/2024 15:23:27 06/08/2024 16:49:51 Obesity 513575543 E66.8 Gastroesop hageal reflux disease without esophagitis 557738395 K21.9 Edema of l ower extremity 066656657 R60.0 Essential hypertension 26486006 I10 [id number] MD [facility] (Adult Med) [address] [place] [phone] 07/13/2024 14:56:22 07/13/2024 15:30:17 Essential hypertension 24722882 I10 Gastroesop hageal reflux disease without esophagitis 837530729 K21.9 Imaging of liver abnormal 628766084 R93.2 [id number] MD [facility] Nascimento (Adult Med) [address] [place] [phone] 10/14/2024 11:53:40 10/14/2024 12:46:48 Gastroesophageal reflux disease without esophagitis 961336675 K21.9 Essential hypertension 14434423 I10 Imaging of liver abnormal 531386437 R93.2 [id number] Tree Ocampo MD Shawn (Adult Med) [address] [place] [phone] 11/04/2024 11:31:09 11/04/2024 13:14:24 Body mass index 30+ - obesity 251767984 Z68.34 Obesity 244066649 E66.9 Cellulitis of lower limb 138416208 L03.000 [id number] MD [facility]asc[facility] (Adult Med) [address] [place] [phone] 02/17/2025 11:50:54 02/17/2025 13:13:48 Body mass index 30+ - obesity 527273251 Z68.34 Obesity 016748768 E66.9 Cirrhosis of liver 007 K74.60 Gastroesop hageal reflux disease without esophagitis 589038971 K21.9 Edema of l ower extremity 384597346 R60.0 Essential hypertension 73332448 I10 Imaging of liver abnormal 704636164 R93.2 [id number] MD Shawn Nascimento (Adult Med) [address] [place] [address] 06/21/2025 13:39:04 06/21/2025 14:33:47 Obese class I [id number] 55841 E66.811 E66.3 2999846771 BMI 34.7 Essential hypertension 02937869 I10 Cirrhosis of liver 007 K74.69 4510247 Gastroesop hageal reflux disease without esophagitis 383140369 K21.9 Imaging of liver abnormal 475553617 R93.2 [id number] MD Shawn Nascimento (Adult Med) [address] [place] [address] 07/04/2025 16:03:35 07/04/2025 17:36:12 Obese class I [id number] 76281 E66.811 E66.3 1447171504 BMI 34.8 Closed fra cture of nasal bones 53991580 S02.2XXD 68896933 Contusion of left knee 4796225803 7014765 S80.02XD 723100 Essential hypertension 27198892 I10 [id number] Tree Ocampo MD [facility] (Adult Med) [address] [place] [address] 10/17/2025 13:41:07 10/17/2025 14:30:36 Obese class II 6483088869 62494 E66.812 E66.3 9308909492 Gastroesop hageal reflux disease without esophagitis 224216649 K21.9 Essential hypertension 96745539 I10 Vitamin D below reference range 898743048 E55.9 Pain in le ft lower limb 463230435 M79.605 558388 Cirrhosis of liver 007 K74.60 1432236865 Health Concerns Section Related Observation LastModified by Organization Detai ls LastModified Time None Recorded Concern Status LastModified by Organization Details LastModified Time None Recorded Advance Directives Directive Y: Payers Insurance Date Sequence Insurance Name Policy Number Policy Christensen Covered Member ID Christensen Member ID Guarantor Name 10/14/2025 1 [facility] (MEDICARE REPLACEMENT/A DVANTAGE - HMO) [id number] Janine Kahn [id number] Janine Kahn Notes Date Note Type Note Provider Name and Address Organization Details Recorded Time 11/04/2024 text/html dropped a frozen ice cream container on her left leg blood days ago now it is a little bit red she has been using some triple antibiotic ointment no loss of function Tree Ocampo MD Attn: Accounting,[address] [place], [address], [facility] - [facility] 11/05/2024 14:31:53 02/17/2025 text/html hypertension blood pressure is up a little bit today but she feels fine edema lower extremities is stable she needs reimaging of her liver her GERD has been doing fine she did have a nodular contour of the liver Tree Ocampo MD Attn: Accounting,[address] [facility], [place], [address], [place] [facility] 02/18/2025 15:11:39 06/21/2025 text/html GERD no nausea or vomiting. Cirrhosis she has not had any bleeding jaundice weight loss melena occasional edema in her legs she sees the special effects designer next week low vitamin-D level as supplemented qzel-xvw-yhfxmgp hit her right lower extremity are sharp object last week Tree Ocampo MD Attn: Accounting,[address] [facility], [place], [address], [place] [facility] 06/21/2025 15:09:20 07/04/2025 text/html Mechanical fall broke her nose bruised her knee Tree Ocampo MD Attn: Accounting,[address] [place], [address], [place] [facility] 07/16/2025 21:02:20 10/17/2025 text/html Her GERD stable. Edema has been doing fine except for the area below her left knee where she had the fall it feels warm at time. She had some antibiotics for dental prophylaxis and actually felt better she has had no loss of function or numbness. From his far as her cirrhosis goes she has been stable Tree Ocampo MD Attn: Accounting,[address] [facility], [place], [address], [place] [facility] 10/17/2025 22:18:44 OBGyn Episode No OBEpisode recorded.
--- OUTSIDE RECORDS SUMMARY | 2025-11-01 10:35 | XMS_ITS | Clinical Summary ---
Author Organization [facility] Address [address] [place] [address] Care Team Providers Care Production Broacher Name Role Phone Higinio Ocampo MD Primary Care Provider [phone] Source Comments [facility],non-owned Affiliates and Associated Physician Practices is amultiple site organization consisting of ambulatory clinics and hospital sitesin [place], [place], [place] and [place]. This disclosure is being madepursuant to the Care Everywhere program and may not contain all information available regarding this patient. Last updated 18.[facility] [place] Allergies Active Allergy Reactions Criticality Noted Date [...] (one) tablet by mouth once daily Active Active Problems No known active problems Encounters Date Type Department Care Team Description 09/28/2025 3:00 PM CDT Office Visit [facility] - [address] [place] [address] Ahsan Rodriguez MD Swanson, Stephanie N, GATE AGENT-SIMULATION ENGINEER Cirrhosis of liver without ascites, unspecified hepatic cirrhosis type (HCC) (Primary Dx); Hepatic steatosis; Class 2 severe obesity due to excess calories with serious comorbidity and body mass index (BMI) of 35.0 to 35.9 in adult 09/28/2025 Travel 09/05/2025 Telephone [facility] [address] [place] [address] Dc Paul, RN Follow-up from Last 3 Months Immunizations Immunization Administration [...] Sign Reading Time Taken Comments Blood Pressure 170/53 09/28/2025 1:02 PM CDT Pulse 65 09/28/2025 1:02 PM CDT Temperature 36.7 C (98.1 F) 09/28/2025 1:02 PM CDT Respiratory Rate 16 06/28/2025 6:04 AM CDT Oxygen Saturation 100% 09/28/2025 1:02 PM CDT Inhaled Oxygen Concentration - - Weight 86.2 kg (190 lb) 09/28/2025 1:02 PM CDT Height 154.9 cm (5' 1) 09/28/2025 1:02 PM CDT Body Mass Index 35.9 09/28/2025 1:02 PM CDT Plan of Treatment Upcoming Encounters Date Type Department Care Team (Late st Contact Info) Description 09/27/2026 1:30 PM CDT Office Visit [facility] [address] [place] [address] Billie Carcamo, GATE AGENT-SIMULATION ENGINEER [address] [place] [address] [address] [place] [address] Health Maintenance Due Date Last Done Comments [...] AWV CALENDAR YEAR 2024 COVID-19 VACCINE ( - season) 2025 08/08/2024, 10/13/2022, 12/02/2021, Additional history [...] on patient's age to complete this topic Goals Goal Patient Goal Type Associated Problems Recent Progress Patient-Stated? Author Medication Management General On track( 12:58 PM CDT) No Shahida Pack, MELANIE Note: Expected end date: ongoing Interventions: Take all medications as prescribed Let your doctor know right away about any changes in your medications Make sure to request a refill of your medication at least one week prior to your last dose Safety General On track( 12:59 PM CDT) No Shahida Pack, RN Note: Expected end date: ongoing Interventions: Your nurse will assess your risk for falls/injury each visit Use appropriate and safe transfer methods Make sure appropriate safety devices are available and within reach Be aware of medications that could predispose you to falling Wear non-skid/rubber sole footwear Wear glasses/hearing aid Keep personal items within easy reach Keep walking paths clutter free and clear Maintain an unobstructed path to the bathroom Insurance Member Subscriber Plan / Payer (Ef fective 2024-Present) Name:Janine Kahn Member ID:Not on file Relation to Subscriber:Self Name:Femi Janine G Payer ID:[id number] (NAIC) Type:Medicare-Managed Care Address: [place] [id number] Care Teams Production Broacher Relationship Specialty Start Date End Date Higinio Ocampo MD PCP - General 03/11/19
--- OUTSIDE RECORDS SUMMARY | 2025-11-01 10:35 | XMS_ITS | Continuity of Care Document ---
Author Organization [facility] (Adult Med) Address [address] [place] [address] Care Team Providers Care Simulation Educator Name Role Phone HIGINIO OCAMPO Primary Care Provider [phone] Assessment Encounter Date Assessment Date Assessment LastModified by Organization Details LastModified Time 10/17/2025 10/17/2025 Obtain blood wor k obtain CT of the left lower extremity with contrast cirrhosis is stable she will follow up with me regularly in 3 months but we will have further recommendations pending results of the imaging blood work [email or web address] Not available 10/17/2025 22:18:15 Plan of Treatment Reminders Order Date Submit Date Provider Last Modified By Organization Details Last Modified Time Details Appointments ANY 15 2024 01:30P Thu Ocampo MD Not available Not available Not available Lab C-reactiv e protein, quantitat urvashi, serum or plasma 2024 025 [email or web address] [facility], [address], [place], [address], 10/17/2025 21:13:11 ESR (erythroc yte sedimenta tion rate), blood 2024 025 [email or web address] [facility], [place], [address], 10/17/2025 21:13:11 CBC 2024 025 [email or web address] [facility], [address], [place], [address], 10/17/2025 21:13:11 CMP, serum or plasma 2024 025 [email or web address] [facility], [address], [address], [place], [address], 10/17/2025 21:13:11 Referral None recorded. Procedures None recorded. Surgeries None recorded. Imaging CT, lower extremity , w/ contrast [address] [facility], [address], [place], [address], 10/17/2025 21:13:11 Medication Orders None recorded. Patient TargetsNo targets recorded. Patient Instructions Encounter Date Encounter Id Patient Instructions Last Modified By Organization Details Last Modified Time 10/17/2025 [id number] A healthy lifestyle: care instructions [place] [address] Not available 10/17/2025 21:13:11 Reason for Referral None Reported. Results Created Date Observation Date Name Description Value Unit Range Abnormal Flag Note LastModifiedBy Organization Detail LastModifiedTime 09/19/20 25 09/19/2025 US, abdom en No observ ation record ed. [facility] [address], [place], [address], 09/21/2025 12:23:12 Result Notes None recorded. Problems Name Problem SNOMED Code Status Onset Date Resolution Date Notes Provider Name and Address Organization Details Recorded Time Abdominal pain 90493613 Active 2023 MASOUD [place], [place] - [facility] 4 15:12:40 Gastroesophage al reflux disease without esophagitis 436614356 Active 2023 Nabila Prince MA null, [place] [facility] 4 15:12:40 Edema of lower extremity 702904185 Active 2023 Nabila Prince [place], [place] [facility] 4 15:12:41 Vitamin D below reference range 058333553 Active 2023 Higinio Ocampo MD Attn: Lisandro vee,[address] [facility], [place], [address], [place] [facility] 4 21:58:33 Essential hypertension 73625829 Active 2023 MASOUD Thompson, [place] - [facility] 4 09:50:10 Imaging of liver abnormal 262320905 Active 2023 Higinio Ocampo MD Attn: Lisandro vee,[address] [facility], [place], [address], [place] [facility] 4 22:22:51 Cellulitis of lower limb 190894398 Active 2023 Nabila Prince MA null, [place] - [facility] 4 13:13:25 Pain in left lower limb 672688793 Active 2024 MASOUD Thompson, [facility] 5 14:33:15 Cirrhosis of liver 74139027 Active 2024 MASOUD Thompson, [place] - [facility] 5 14:33:16 Problem Notes None recorded. Procedures Surgical History Date Name Laterality Status Provider Name and Address Organization Details Recorded Time Eye Surgery completed Joellen Neal MA [place] - [facility] 03/10/2024 14:44:20 Knee Surgery completed Joellen Neal MA [facility] 03/10/2024 14:44:48 Imaging Results None recorded. Procedure Notes None recorded. Medical Equipment None Reported. Allergies Allergen ID Allergen Name Allergen Category Reaction Reaction Severity Criticality Documentation Date Start Date Code Code System Note Provider Name and Address Organization Details Recorded Time 246004 codeine medicatio n dizziness Not available Not available 03/10/2024 2670 RxNorm MASOUD Varg[place], [place] - [facility] 4 14:42:37 Medications Name Sig Start Date [...] Updated DateTime 5 154.94 cm 35.2 kg/m2 98834.6 2 g 88 /min 98 % 124/68 mm[Hg] Paris Chan MA [place] - [facility] 5 13:55:18 Social History Question Answer Notes LastModified by Organizat ion Details LastModified Time Tobacco Smoking Status Never Smoker Joellen Neal MA [facility], [place] - [facility] 03/10/2024 14:47:22 Do You Have [...] anxious, or unable to sleep at night)? [id number] Information not available 03/10/2024 Family History Relationship [...] 12:07:29 Influenza, high-dose, quadrivalent, PF 0 completed MASOUD [place], [place] [facility] 06/08/2024 12:07:29 Influenza, high-dose, quadrivalent, PF 1 completed MASOUD [place], [place] [facility] [...] mL or 25mcg/0.25 mL dose 2 completed MASOUD [place], [place] - [...] Influenza, split virus, quadrivalent, PF 6 completed Tyra Gilliam [place], [place] [facility] 06/08/2024 12:07:29 COVID-19, mRNA, LNP-S, PF, 50 mcg/0.5 mL 4 completed MASOUD [place], [place] [facility] 02/17/2025 12:11:41 Influenza, high-dose, trivalent, PF 4 completed MASOUD [place] [facility] 02/17/2025 12:11:41 Tdap 5 completed Not Available [facility] 10/17/2025 13:42:27 COVID-19, mRNA, LNP-S, PF, 10 mcg/0.2 mL 5 completed Not Available [facility] 10/17/2025 13:42:27 Influenza, high-dose, trivalent, PF 5 completed Not Available [facility] 10/17/2025 13:42:27 Past Encounters Encounter ID Performer Location Encounter Start Date Encounter Closed Date Diagnosis/Indication Diagnosis SNOMED-CT Code Diagnosis ICD10 Code Diagnosis IMO Codes Diagnosis Note [id number] Higinio Ocampo MD [facility] (Adult Med) [address] [place] [address] 10/17/2025 13:41:07 10/17/2025 14:30:36 Obese class II [id number] 64250 E66.812 E66.3 1357581962 Gastroesop hageal reflux disease without esophagitis 710194990 K21.9 Essential hypertension 87936375 I10 Vitamin D below reference range 409829544 E55.9 Pain in le ft lower limb 090972011 M79.605 444174 Cirrhosis of liver 007 K74.60 9393106194 Health Concerns Section Related Observation LastModified by Organization Detai ls LastModified Time None Recorded Concern Status LastModified by Organization Details LastModified Time None Recorded Payers Encounter Date Sequence Insurance Name Policy Number Policy Christensen Covered Member ID Christensen Member ID Guarantor Name 10/17/2025 1 [facility] (MEDICARE REPLACEMENT/A DVANTAGE - HMO) [id number] Janine Kahn [id number] Janine Kahn Notes Date Note Type Note Provider Name and Address Organization Details Recorded Time 10/17/2025 text/html Her GERD stable. Edema has been doing fine except for the area below her left knee where she had the fall it feels warm at time. She had some antibiotics for dental prophylaxis and actually felt better she has had no loss of function or numbness. From his far as her cirrhosis goes she has been stable Higinio Ocampo MD Attn: Accounting,[address] [facility], [place], [address], [facility] - [facility] 10/17/2025 22:18:44 OBGyn Episode No OBEpisode recorded.
[2025-11-01 11:33] LABS: Estimated Glomerular Filt Rate 31
== END 2025-11-01 09:41 | disposition home or self-care (01) ==
PROVIDERS: PCP Internal Medicine; Visit Provider Internal Medicine
DX: M22.92 Unspecified disorder of patella, left knee (principal); M19.072 Primary osteoarthritis, left ankle and foot; Z96.652 Presence of left artificial knee joint
CPT/HCPCS: 73701; Q9967